=== PATIENT | female | born 1930 | race Caucasian/White ===

== ENCOUNTER 2017-02-22 10:18 | Inpatient (IN) | payer MEDICARE ==
[2017-02-22] MEDS ORDERED: HYDROmorphone INJ* 1 MG/ML CARPUJECT SYRINGE IV ONE ×2 (11:06→15:21)
[2017-02-22] MEDS ORDERED: Ondansetron INJ* 2 MG/ML VIAL IV ONE ×2 (11:06→15:21)
[2017-02-22] MEDS ORDERED: NS 0.9% 1000 ML* 1,000 ML IV ONE (11:06)
[2017-02-22 11:30] LABS: Hematocrit 39 % (35-47); Hemoglobin 12.8 g/dl (12.0-16.0); Mean Corpuscular HGB Conc 33 g/dl (31-36); Mean Corpuscular Hemoglobin 30 pg (27-31); Mean Corpuscular Volume 90 fL (80-97); Mean Platelet Volume 9 um3 (7.4-10.4); Red Blood Count 4.33 10^6/ul (4.0-5.4); Red Cell Distribution Width 14 % (10.5-15); White Blood Count 7.1 10^3/ul (3.5-10.8)
[2017-02-22 11:48] LABS: ALT 9 U/L (7-52); AST 11 U/L (13-39); Albumin 3.4 g/dL (3.2-5.2); Alkaline Phosphatase 72 U/L (34-104); Anion Gap 7 mmol/L (2-11); BUN/Creatinine Ratio 14.7 (8-20); Blood Urea Nitrogen 16 mg/dL (6-24); C Reactive Protein 2.88 mg/L (< 5.00); CO2 Carbon Dioxide 26 mmol/L (22-32); Calcium 8.8 mg/dL (8.6-10.3); Chloride 102 mmol/L (101-111); EGFR African American 61.1 (>60); EGFR Non-African American 47.5 (>60); Glucose 187 mg/dL (70-100); Lipase < 10 U/L (11.0-82.0); Potassium 3.8 mmol/L (3.5-5.0); Sodium 135 mmol/L (133-145); Total Protein 6.4 g/dL (6.4-8.9)
--- NOTE | 2017-02-22 11:57 | RAD ---
INDICATION: Burning abdominal pain and frequent soft stools. History of diverticulitis. Post appendectomy, hysterectomy, ovarian cyst resection, colon polypectomy, ureteral dilatation. COMPARISON: March 27, 2015 CT. TECHNIQUE: Multidetector CT images were obtained from the lung bases to the ischial tuberosities. Evaluation of the viscera is limited without IV contrast. Multiplanar reformation. REPORT: Mild focal LEFT anteromedial basal segment bronchiectasis without change. Negative for pleural effusions. RIGHT atrial and RIGHT ventricular pacemaker leads. Mild cardiomegaly. Negative for pericardial effusion. Unremarkable unenhanced liver and gallbladder. Negative for biliary dilatation. Advanced fatty involution of the pancreas without suspicious finding of the pancreas. Small calcified granuloma at the spleen. Small splenule approximates the dominant spleen. Negative for CT abnormality of the upper GI or small bowel. The appendix is not visualized consistent with surgical history. Severe colonic diverticulosis most marked at the sigmoid colon. Mild reticulation/inflammatory change at the proximal sigmoid colon mesentery similar location although less prominent than on the 2015 exam. No perienteric abscess or extra enteric gas evident. Only trace peritoneal fluid along the LEFT pelvic sidewall. Small fat-containing umbilical hernia without inflammatory change. Normal adrenal glands. Moderately atrophic kidneys. Negative for hydronephrosis. Unremarkable nondilated ureters and distended urinary bladder. Post hysterectomy. No suspicious adnexal region lesion evident. Negative for lymphadenopathy. Ectatic abdominal aorta from the suprarenal level through the distal infrarenal level measuring up to 3.0 cm maximum dimension without change. No retroperitoneal hematoma evident. Diffuse degenerative spondylosis and facet joint osteoarthritis without gross change. Negative for fracture or suspicious focal osseous lesion. IMPRESSION: 1. Mild inflammatory change at the sigmoid colon mesentery likely representing mild acute diverticulitis in setting of severe diverticulosis. No perienteric abscess or extra enteric gas evident. Negative for resulting bowel obstruction. 2. Ectatic abdominal aorta from the suprarenal level through the distal infrarenal level measuring up to 3.0 cm maximum dimension without change. No retroperitoneal hematoma evident.
[2017-02-22 12:32] LABS: Troponin I 0.03 ng/mL (<0.04)
[2017-02-22 13:23] LABS: Urine Bacteria Absent (Absent); Urine Bilirubin Negative (Negative); Urine Glucose Negative (Negative); Urine Nitrite Negative (Negative)
[2017-02-22] MEDS ORDERED: Ciprofloxacin TAB* 500 MG PO ONE (15:21)
[2017-02-22] MEDS ORDERED: metroNIDAZOLE TAB* 250 MG PO ONE (15:21)
[2017-02-22] MEDS ORDERED: Nitroglycerin TAB 0.4 MG* 0.4 MG TAB SL PRN (18:19)
[2017-02-22] MEDS: Losartan TAB* 25 MG PO SCH (21:41)
[2017-02-22] MEDS: HYDROmorphone TAB* 2 MG PO PRN (21:42)
[2017-02-22] MEDS: Warfarin TAB(*) 3 MG PO SCH (21:42)
[2017-02-22] MEDS: metroNIDAZOLE TAB* 250 MG PO SCH (21:42)
[2017-02-22] MEDS: Ciprofloxacin TAB* 500 MG PO SCH (21:43)
--- NOTE | 2017-02-23 02:30 | HP ---
HISTORY AND PHYSICAL: DATE OF ADMISSION: 02/22/17 ATTENDING PROVIDER: Jean Carlos Crawford MD. PRIMARY CARE PROVIDER: Dr. Mckeon of [place]. CHIEF COMPLAINT: Abdominal discomfort, cramping pain; anxiety. HISTORY OF PRESENT ILLNESS: The patient is an 86-year-old female with a past medical history as above, who started having some abdominal discomfort 3 days before admission, progressed to tenderness 2 days prior to admission, and then a cramping pain. She had multiple bowel movements that were soft, not liquidy. She developed some anxiety, never had any nausea. Denies any shortness breath or chest pain, chest tightness. She has chronic mcdowell-spinal back pains for which she takes originally oxycodone 10 mg 6 times a day, but recently has switched to Dilaudid 2 mg every 6 to 8 hours, but can take up to 6 times per day , per daughter in the room she has been taking it 3 times per day. Of note, she does have reported allergic reaction to morphine, which makes her sick. She switched because oxycodone seemed to not be a quite as effective anymore for the pain. The patient presented to the emergency room, had a CT abdomen and pelvis, which showed some evidence of mild inflammatory changes of the sigmoid colon and severe diverticulosis. She reports a history of diverticulitis. She had an EKG, which showed some anterior V1 through V4 T- wave inversions, which were seemingly new, and very slight ST depressions in V4. Repeat EKG had resolution of these T-wave inversions. Initial troponin was 0.03, slightly increasing to 0.04 three hours later. The patient has complex cardiac medical history and follows up with greald Prasad for pacemaker check, which was placed in April of last year, on March 03, that is the pacemaker check at that time, and an echocardiogram and routine visit. No other recent cardiac medication changes. She never tolerated statins due to muscle side effects. The patient was noted to be in first-degree AV block and then third- degree AV block in January on some of EKGs from January 2016, status post pacemaker. In April, later on, her left heart catheterization on April 26, [address] Purvis showed 80% to 85% stenosis of the RCA and got a drug-eluting stent to the area. The patient reports history of 4 stents. The patient will be admitted for diverticulitis and acute coronary syndrome rule out given ischemic changes on the EKG. 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 MEDICATIONS: Outpatient medications include: 1. Aspirin 81 mg daily. 2. Warfarin 3 mg daily. 3. Polyethylene glycol 17 g p.o. daily. 4. Nitroglycerin tabs 0.4 mg q.5 minutes p.r.n. 5. Losartan 50 mg p.o. b.i.d. 6. Imodium 2 mg p.o. daily p.r.n. 7. Synthroid 125 mcg p.o. daily. 8. Imdur 60 mg p.o. daily. 9. Dilaudid 2 to 4 mg p.o. q.6 to 8 hours p.r.n. 10. Cholecalciferol 2000 units p.o. daily. 11. Calcium carbonate/cholecalciferol 600+200 mg 1 tab p.o. daily. 12. Albuterol inhaler 2 puffs inhaled q.4 hours p.r.n. 13. Desoximetasone 0.05% topical daily. 14. Voltaren gel 1% applied 4 times a day p.r.n. ALLERGIES: Include CODEINE, severe hallucinations; PENICILLIN, intermediate hives; BACTRIM, intermediate hives; TRAMADOL, intermediate swelling; ACETAMINOPHEN, unknown; , unknown; FENTANYL, unknown; GABAPENTIN, unknown ; LORATADINE, unknown; MORPHINE, intermediate nausea. FAMILY MEDICAL HISTORY: Significant for mother with breast cancer and CHF. Brother of NC at age 65. Sister, heart attack at age 95, cancer of unknown origin at age 96, breast cancer at age 52, and breast cancer and then ultimately kidney failure at age 71. SOCIAL HISTORY: The patient is a never smoker and nondrinker. Lives in a shelter facility, [facility]. Daughter, Brigette, lives few blocks down. Her medical decision surrogate is her sister, Dipti Tapia. She walks slowly with a walker at baseline. REVIEW OF SYSTEMS: The patient denies 14-point review of systems except as noted in HPI. Denies shortness of breath, paroxysmal nocturnal dyspnea, pillow orthopnea, swelling in legs, chest pain, chest tightness, blood per bowel movements, diarrhea. Does attest to cramping abdominal pain, some anxiety. Denies headache, sick contacts, rashes, neuropathy. Does have residual left- sided weakness from her stroke. PHYSICAL EXAMINATION GENERAL APPEARANCE: No acute distress, lying in [facility]. VITAL SIGNS: Blood pressure 151/65, oxygen saturation 96% on room air, respiratory rate 14, heart rate 62, temperature 97.3. HEENT: Normocephalic, atraumatic. Pupils equally round and reactive to light. Extraocular motions intact. NECK: Supple. No cervical lymphadenopathy. PULMONARY: Clear to auscultation bilaterally with no wheezing, rales or rhonchi. CARDIOVASCULAR: Regular rate and rhythm. No murmurs, rubs or gallops. ABDOMEN: Soft, slightly tender diffusely. No peritoneal signs. No rebound or guarding. No Mckay's sign. EXTREMITIES: Warm, well perfused. No significant edema. SKIN: No rashes. No lesions. DIAGNOSTIC STUDIES/LAB DATA: Laboratory evaluation significant for white count of 7.1, hemoglobin 12.8, hematocrit 39, platelets 223. INR 2.12. Sodium 135, potassium 3.8, chloride 102, carbon dioxide 26, BUN 16, creatinine 1.09, glucose 187. AST 11. Troponin 0.03, increased to 0.04. LFTs within normal limits. Lipase less than 10. UA with 1+ leukocyte esterase and presence of squamous epithelial cells, otherwise within normal limits. IMAGING: Abdominal and pelvis CT without contrast demonstrated: 1. Mild inflammatory changes of the sigmoid colon and mesentery, likely representing mild acute diverticulitis in the setting of severe diverticulosis. No perienteric abscess or extra-enteric gas evident. Negative for resulting bowel obstruction. 2. Ectatic abdominal aorta from the suprarenal level to the distal infrarenal level measuring up to 3.07 in maximum dimension, without change. No retroperitoneal hematoma evident. EKG from 11:45 a.m. demonstrated T-wave inversions in V1 through V4, flat in V5 through V6, flat in aVF, and inverted Q-waves in III, IA interval prolonged at 290, normal axis, very slight to [address] segments in V4 and V3. Repeat EKG at 1718 demonstrated positive T-waves in V2 through V3 and flat in V4 , V5, continued Qs in V3, continued prolonged IA interval, ST depressions of 1 mm in V3, resolved in V4. ASSESSMENT AND PLAN: The patient is an 86-year-old female with complex past medical history including complex cardiac history with reported 4 stents, only known of one to the RCA in 2012, status post pacemaker, presenting with abdominal cramping and frequent soft bowel movements and with evidence of mild acute diverticulitis on CT abdomen and pelvis without contrast. The patient with some ischemic changes, transitory, on EKG and mildly intermediate troponins. Given her comorbidities and risk factors, we will admit her for observation status overnight, trend troponins every 4 hours, continue telemetry. Continue her aspirin, Coumadin, and nitro p.r.n. Of note, the patient is not endorsing any chest pain, chest tightness, or shortness of breath at this time. I believe this is likely some demand ischemia in the setting of mild infection and her chronic back pain symptoms are not exacerbated by the change in medication and now this abdominal pain. Some of her symptoms may in fact have been related to switching her medications as she does have some allergies to opioid medications and recently switched from oxycodone to Dilaudid. She follows up with Dr. Romeo, paint pourer. We will continue Dilaudid for now, give her Zofran p.r.n., not nauseous at the moment. We will continue Imdur 60 mg daily, losartan 50 mg b.i.d. She is slightly hypertensive here. It is not clear why she is not on a beta-toby, perhaps from her AV block. No clear evidence of pacemaking spikes. We can consult Cardiology in the morning. The patient is likely a good candidate for a stress test. The patient is a full code. Medical decision proxy is sister, Dipti Tapia. We will continue her Coumadin for her history of DVTs and get INRs daily, initially was 2.12, along with BMP, CBC, and magnesium daily initially. For asthma, continue her albuterol q.4 hours p.r.n. [id number]/[facility] #: [id number] [facility]
[2017-02-23] MEDS: Levothyroxine TAB* 125 MCG TAB PO SCH (05:11)
[2017-02-23] MEDS: HYDROmorphone TAB* 2 MG PO PRN (05:11)
[2017-02-23] MEDS: metroNIDAZOLE TAB* 250 MG PO SCH ×4 (07:51→21:21)
[2017-02-23] MEDS: Multivitamins/Minerals TAB PO SCH (07:51)
[2017-02-23] MEDS: Lactobacillus Acidophilu (GG)* 1 CAP CAP PO SCH (07:51)
[2017-02-23] MEDS: Isosorbide Mononitrate ER TAB* 60 MG PO SCH (07:52)
[2017-02-23] MEDS: Aspirin EC Low Dose* 81 MG TAB.EC PO SCH (07:53)
[2017-02-23] MEDS: Ciprofloxacin TAB* 500 MG PO SCH ×2 (07:55→21:21)
[2017-02-23] MEDS: Losartan TAB* 25 MG PO SCH ×2 (07:55→21:22)
[2017-02-23] MEDS: Polyethylene Glycol 3350* 17 GM PACKET PO SCH (07:58)
[2017-02-23] MEDS: Cholecalciferol TAB* 1000 UNITS PO SCH (08:04)
[2017-02-23] MEDS ORDERED: HYDROmorphone TAB* 2 MG PO PRN (09:12)
[2017-02-23 09:39] LABS: Hematocrit 39 % (35-47); Hemoglobin 13.2 g/dl (12.0-16.0); Mean Corpuscular HGB Conc 34 g/dl (31-36); Mean Corpuscular Hemoglobin 30 pg (27-31); Mean Corpuscular Volume 90 fL (80-97); Mean Platelet Volume 9 um3 (7.4-10.4); Red Blood Count 4.37 10^6/ul (4.0-5.4); Red Cell Distribution Width 14 % (10.5-15)
[2017-02-23] MEDS: HYDROmorphone TAB* 4 MG PO PRN ×3 (09:55→23:07)
[2017-02-23 10:29] LABS: BUN/Creatinine Ratio 11.7 (8-20); Calcium 8.3 mg/dL (8.6-10.3); EGFR African American 65.2 (>60); EGFR Non-African American 50.7 (>60); Potassium 3.7 mmol/L (3.5-5.0)
--- NOTE | 2017-02-23 13:47 | PN ---
Subjective Date of Service: 02/23/17 Interval History: Feels lousy. Incontinent of bowels with diarrhea. back pain not well controlled. some abdominal cramps remain. Objective Active Medications: Aspirin (Aspirin Ec Low Dose*) 81 mg PO DAILY [facility] Last Admin: 02/23/17 07:53 Dose: 81 mg Cholecalciferol (Vitamin D Tab*) 2,000 units PO DAILY [facility] Last Admin: 02/23/17 08:04 Dose: 2,000 units Ciprofloxacin (Cipro Tab*) 500 mg PO Q12HR [facility] Last Admin: 02/23/17 07:55 Dose: 500 mg Hydromorphone HCl (Dilaudid Tab*) 2 mg PO Q6H PRN PRN Reason: PAIN Hydromorphone HCl (Dilaudid Tab*) 4 mg PO Q6H PRN PRN Reason: PAIN Last Admin: 02/23/17 09:55 Dose: 4 mg Isosorbide Mononitrate (Imdur Er Tab*) 60 mg PO DAILY [facility] Last Admin: 02/23/17 07:52 Dose: 60 mg Lactobacillus Rhamnosus (Culturelle*) 1 cap PO DAILY [facility] Last Admin: 02/23/17 07:51 Dose: 1 cap Levothyroxine Sodium (Synthroid Tab*) 125 mcg PO QAM@0600 [facility] Last Admin: 02/23/17 05:11 Dose: 125 mcg Losartan Potassium (Cozaar Tab*) 50 mg PO BID [facility] Last Admin: 02/23/17 07:55 Dose: 50 mg Metronidazole (Flagyl Tab*) 500 mg PO TID [facility] Last Admin: 02/23/17 07:51 Dose: 500 mg Multivitamins/Minerals (Theragran/Minerals Tab*) 1 tab PO DAILY [facility] Last Admin: 02/23/17 07:51 Dose: 1 tab Nitroglycerin (Nitroglycerin Tab 0.4 Mg*) 0.4 mg SL Q5M PRN PRN Reason: PAIN - CHEST Polyethylene Glycol/Electrolytes (Miralax*) 17 gm PO DAILY [facility] Last Admin: 02/23/17 07:58 Dose: Not Given Warfarin Sodium (Coumadin Tab(*)) 3 mg PO DAILY@1700 [facility] PRN Reason: Protocol Last Admin: 02/22/17 21:42 Dose: 3 mg Vital Signs 02/23/17 02/23/17 02/23/17 09:55 11:07 11:55 Temperature 98.0 F Pulse Rate 76 Respiratory 18 18 18 Rate Blood Pressure 176/78 (mmHg) O2 Sat by Pulse 97 Oximetry Oxygen Devices in Use Now: None Appearance: anxious appearing with some discomfort. Ears/Nose/Mouth/Throat: NL Teeth, Lips, Gums, Mucous Membranes Moist Neck: NL Appearance and Movements; NL JVP, Trachea Midline Respiratory: Symmetrical Chest Expansion and Respiratory Effort, Clear to Auscultation Cardiovascular: NL Sounds; No Murmurs; No JVD, RRR Abdominal: - - slight tenderness LUQ, soft, no peritoneal signs Extremities: No Edema Skin: No Rash or Ulcers, No Nodules or Sclerosis Neurological: Alert and Oriented x 3, NL Muscle Strength and Tone Nutrition: Taking PO's, - Result Diagrams: 02/23/17 09:27 02/23/17 09:21 Additional Lab and Data: Laboratory Results - last 24 hr 02/22/17 02/22/17 02/22/17 15:05 18:37 18:50 WBC RBC Hgb Hct MCV MCH MCHC RDW Plt Count MPV Neut % (Auto) Lymph % (Auto) Glascock % (Auto) Eos % (Auto) Baso % (Auto) Absolute Neuts (auto) Absolute Lymphs (auto) Absolute Monos (auto) Absolute Eos (auto) Absolute Basos (auto) Absolute Nucleated RBC Nucleated RBC % Sodium Potassium Chloride Carbon Dioxide Anion Gap BUN Creatinine Est GFR ( Amer) Est GFR (Non-Af Amer) BUN/Creatinine Ratio Glucose Lactic Acid 1.2 Calcium Troponin I 0.04 H* 0.03 02/23/17 02/23/17 09:21 09:27 WBC 7.0 RBC 4.37 Hgb 13.2 Hct 39 MCV 90 MCH 30 MCHC 34 RDW 14 Plt Count 213 MPV 9 Neut % (Auto) 80.4 Lymph % (Auto) 12.1 L Glascock % (Auto) 5.8 Eos % (Auto) 0.9 Baso % (Auto) 0.8 Absolute Neuts (auto) 5.6 Absolute Lymphs (auto) 0.8 L Absolute Monos (auto) 0.4 Absolute Eos (auto) 0.1 Absolute Basos (auto) 0.1 Absolute Nucleated RBC 0.01 Nucleated RBC % 0.1 Sodium 135 Potassium 3.7 Chloride 101 Carbon Dioxide 27 Anion Gap 7 BUN 12 Creatinine 1.03 H Est GFR ( Amer) 65.2 Est GFR (Non-Af Amer) 50.7 BUN/Creatinine Ratio 11.7 Glucose 171 H Lactic Acid Calcium 8.3 L Troponin I Microbiology and Other Data: Microbiology 02/22/17 12:47 Urine Urine Culture - Final No Growth (<1,000 CFU/mL) Assess/Plan/Problems-Billing Assessment: 86 year old female PMH diverticulitis, CAD s/p RCA stent, DVTs on coumadin, CVA with mild residual left sided weakness, polio, anxiety, PMR, breast cancer and strong family cancer history, presenting with abdominal cramping. CT with mild diverticulitis. Now diarrhea. On cipro/flagyl. ACS rule out given initial transitory TWI anteriorly and borderline troponine. - Patient Problems (1) Diverticulitis Current Visit: No Status: Acute Priority: High Onset Date: 01/06/15 Comment: Afebrile. continue cipro flagyl add Cdiff (2) Chronic back pain Current Visit: No Status: Chronic Code(s): M54.9 - DORSALGIA, UNSPECIFIED; G89.29 - OTHER CHRONIC PAIN SNOMED Code(s): 347891617 Comment: Continue home medications : dilaudid 2-4mg q6hrs prn. this was recently changed. (3) Diabetes Current Visit: No Status: Chronic Priority: High Onset Date: 01/06/15 Code(s): E11.9 - TYPE 2 DIABETES MELLITUS WITHOUT COMPLICATIONS SNOMED Code(s) : 70842965 Comment: a1C 6.9 12/01/16 lispro SSI, POCT qac hs (4) History of CVA (cerebrovascular accident) Current Visit: No Status: Chronic Priority: Medium Code(s): Z86.73 - PRSNL HX OF TIA (TIA), AND CEREB INFRC W/O RESID DEFICITS SNOMED Code(s): 742467943 (5) Hx of coronary artery disease Current Visit: No Status: Chronic Priority: Medium Code(s): Z86.79 - PERSONAL HISTORY OF OTHER DISEASES OF THE CIRCULATORY SYSTEM SNOMED Code(s): 662046425 Comment: troponins flat, peaked 0.04 TWI anteriorly resolved consider outpatient stress test, likely demand ischemia in setting of diverticulitis. (6) Hyperlipemia Current Visit: No Status: Chronic Priority: High Onset Date: 01/06/15 Code(s): E78.5 - HYPERLIPIDEMIA, UNSPECIFIED SNOMED Code(s): 52405326 Comment: not tolerant of statin (7) Hypertension Current Visit: No Status: Chronic Priority: High Onset Date: 01/06/15 Code(s): I10 - ESSENTIAL (PRIMARY) HYPERTENSION SNOMED Code(s): 85726411 Comment: Continue imdur and losartan. (8) Hx of polymyalgia rheumatica Current Visit: No Status: Chronic Priority: Medium Code(s): Z87.39 - PERSONAL HISTORY OF DISEASES OF THE MS SYS AND CONN TISS SNOMED Code(s): 847492790 Status and Disposition: medicine inpatient, hopeful d/c 02.24 Attending: Jean Carlos Crawford
[2017-02-23] MEDS ORDERED: Dextrose 50% Syringe 50 ML* 25 GM/50 ML SYRINGE IV PUSH PRN (13:52)
[2017-02-23] MEDS: Insulin LISPRO* 1 UNITS UNIT SUBCUT SCH ×2 (16:18→21:20)
[2017-02-23] MEDS: Warfarin TAB(*) 3 MG PO SCH (16:20)
[2017-02-24] MEDS: HYDROmorphone TAB* 4 MG PO PRN ×4 (05:24→19:52)
[2017-02-24] MEDS: Levothyroxine TAB* 125 MCG TAB PO SCH (05:25)
[2017-02-24] MEDS: Insulin LISPRO* 1 UNITS UNIT SUBCUT SCH ×4 (08:06→20:01)
[2017-02-24] MEDS: Aspirin EC Low Dose* 81 MG TAB.EC PO SCH (09:07)
[2017-02-24] MEDS: Losartan TAB* 25 MG PO SCH ×2 (09:07→19:53)
[2017-02-24] MEDS: Multivitamins/Minerals TAB PO SCH (09:07)
[2017-02-24] MEDS: Ciprofloxacin TAB* 500 MG PO SCH ×2 (09:07→19:52)
[2017-02-24] MEDS: Isosorbide Mononitrate ER TAB* 60 MG PO SCH (09:07)
[2017-02-24] MEDS: Lactobacillus Acidophilu (GG)* 1 CAP CAP PO SCH (09:07)
[2017-02-24] MEDS: Cholecalciferol TAB* 1000 UNITS PO SCH (09:07)
[2017-02-24] MEDS: metroNIDAZOLE TAB* 250 MG PO SCH ×3 (09:08→19:52)
[2017-02-24] MEDS: Polyethylene Glycol 3350* 17 GM PACKET PO SCH (09:10)
[2017-02-24 10:10] LABS: Hematocrit 41 % (35-47); Hemoglobin 13.9 g/dl (12.0-16.0); Mean Corpuscular HGB Conc 34 g/dl (31-36); Mean Corpuscular Hemoglobin 31 pg (27-31); Mean Corpuscular Volume 91 fL (80-97); Mean Platelet Volume 9 um3 (7.4-10.4); Red Blood Count 4.53 10^6/ul (4.0-5.4); Red Cell Distribution Width 14 % (10.5-15); White Blood Count 8.8 10^3/ul (3.5-10.8)
[2017-02-24] MEDS ORDERED: HYDROmorphone TAB* 2 MG PO PRN (10:27)
[2017-02-24] MEDS ORDERED: LORazepam TAB(*) 0.5 MG PO PRN (10:31)
[2017-02-24] MEDS: Loperamide CAP* 2 MG PO SCH (10:53)
--- NOTE | 2017-02-24 14:01 | PN ---
Subjective Date of Service: 02/24/17 Interval History: diarrhea with incontinence. some abominal cramping. cdiff negative. pain breakthroughs. ate 10% of lunch when advanced. Objective Active Medications: Aspirin (Aspirin Ec Low Dose*) 81 mg PO DAILY [facility] Last Admin: 02/24/17 09:07 Dose: 81 mg Cholecalciferol (Vitamin D Tab*) 2,000 units PO DAILY [facility] Last Admin: 02/24/17 09:07 Dose: 2,000 units Ciprofloxacin (Cipro Tab*) 500 mg PO Q12HR [facility] Last Admin: 02/24/17 09:07 Dose: 500 mg Dextrose (D50w Syringe 50 Ml*) 12.5 gm IV PUSH .FOR FS < 60 - SS PRN PRN Reason: FS < 60 Hydromorphone HCl (Dilaudid Tab*) 2 mg PO Q4H PRN PRN Reason: PAIN Hydromorphone HCl (Dilaudid Tab*) 4 mg PO Q4H PRN PRN Reason: PAIN Last Admin: 02/24/17 10:53 Dose: 4 mg Insulin Human Lispro (Humalog*) 0 units SUBCUT ACHS [facility] PRN Reason: Protocol Last Admin: 02/24/17 11:57 Dose: Not Given Lactobacillus Rhamnosus (Culturelle*) 1 cap PO DAILY [facility] Last Admin: 02/24/17 09:07 Dose: 1 cap Levothyroxine Sodium (Synthroid Tab*) 125 mcg PO QAM@0600 [facility] Last Admin: 02/24/17 05:25 Dose: 125 mcg Loperamide HCl (Imodium Cap*) 2 mg PO DAILY [facility] Last Admin: 02/24/17 10:53 Dose: 2 mg Lorazepam (Ativan Tab(*)) 0.25 mg PO Q8H PRN PRN Reason: ANXIETY Losartan Potassium (Cozaar Tab*) 50 mg PO BID [facility] Last Admin: 02/24/17 09:07 Dose: 50 mg Metronidazole (Flagyl Tab*) 500 mg PO TID [facility] Last Admin: 02/24/17 09:08 Dose: 500 mg Multivitamins/Minerals (Theragran/Minerals Tab*) 1 tab PO DAILY [facility] Last Admin: 02/24/17 09:07 Dose: 1 tab Nitroglycerin (Nitroglycerin Tab 0.4 Mg*) 0.4 mg SL Q5M PRN PRN Reason: PAIN - CHEST Warfarin Sodium (Coumadin Tab(*)) 3 mg PO DAILY@1700 [facility] PRN Reason: Protocol Last Admin: 02/23/17 16:20 Dose: 3 mg Vital Signs 02/23/17 02/23/17 02/23/17 15:45 16:15 18:15 Temperature 97.7 F Pulse Rate 63 Respiratory 16 18 18 Rate Blood Pressure 150/83 (mmHg) O2 Sat by Pulse 95 Oximetry 02/23/17 02/23/17 02/23/17 18:24 20:21 20:24 Temperature 97.7 F Pulse Rate 63 Respiratory 18 16 18 Rate Blood Pressure 154/72 (mmHg) O2 Sat by Pulse 94 Oximetry 02/23/17 02/23/17 02/23/17 21:00 23:07 23:30 Temperature 98.2 F Pulse Rate 66 Respiratory 18 19 16 Rate Blood Pressure 175/80 (mmHg) O2 Sat by Pulse 96 Oximetry 02/24/17 02/24/17 02/24/17 01:07 03:32 05:24 Temperature 97.8 F Pulse Rate 76 Respiratory 15 16 20 Rate Blood Pressure 171/94 (mmHg) O2 Sat by Pulse 95 Oximetry 02/24/17 02/24/17 02/24/17 07:24 07:33 07:44 Temperature 97.5 F Pulse Rate 71 Respiratory 20 18 20 Rate Blood Pressure 180/95 (mmHg) O2 Sat by Pulse 96 Oximetry 02/24/17 02/24/17 10:46 10:53 Temperature Pulse Rate 62 Respiratory 20 Rate Blood Pressure 158/85 (mmHg) O2 Sat by Pulse Oximetry Oxygen Devices in Use Now: None Appearance: very anxious and talkative Eyes: No Scleral Icterus, PERRLA Ears/Nose/Mouth/Throat: Mucous Membranes Moist Neck: NL Appearance and Movements; NL JVP Respiratory: Symmetrical Chest Expansion and Respiratory Effort, Clear to Auscultation Cardiovascular: NL Sounds; No Murmurs; No JVD, RRR Abdominal: - - no tenderness when distracted. soft, obese. Extremities: No Edema Skin: No Rash or Ulcers Neurological: Alert and Oriented x 3, NL Muscle Strength and Tone Result Diagrams: 02/24/17 10:03 02/23/17 09:21 Additional Lab and Data: Laboratory Results - last 24 hr 02/23/17 02/23/17 02/24/17 16:16 20:11 06:03 WBC RBC Hgb Hct MCV MCH MCHC RDW Plt Count MPV Neut % (Auto) Lymph % (Auto) Mcminn % (Auto) Eos % (Auto) Baso % (Auto) Absolute Neuts (auto) Absolute Lymphs (auto) Absolute Monos (auto) Absolute Eos (auto) Absolute Basos (auto) Absolute Nucleated RBC Nucleated RBC % INR (Anticoag Therapy) 2.90 H POC Glucose (mg/dL) 119 H 132 H 02/24/17 02/24/17 02/24/17 07:37 10:03 11:37 WBC 8.8 RBC 4.53 Hgb 13.9 Hct 41 MCV 91 MCH 31 MCHC 34 RDW 14 Plt Count 256 MPV 9 Neut % (Auto) 75.5 Lymph % (Auto) 14.3 L Mcminn % (Auto) 6.1 Eos % (Auto) 3.3 Baso % (Auto) 0.8 Absolute Neuts (auto) 6.7 Absolute Lymphs (auto) 1.3 Absolute Monos (auto) 0.5 Absolute Eos (auto) 0.3 Absolute Basos (auto) 0.1 Absolute Nucleated RBC 0.02 Nucleated RBC % 0.2 INR (Anticoag Therapy) POC Glucose (mg/dL) 140 H 125 H Microbiology and Other Data: Microbiology 02/24/17 05:00 Stool Stool Gross Appearance - Final 02/24/17 05:00 Stool C. difficile DNA Amplification - Final 027 Presumptive NEGATIVE Toxigenic C.diff NEGATIVE 02/22/17 12:47 Urine Urine Culture - Final No Growth (<1,000 CFU/mL) Assess/Plan/Problems-Billing Assessment: 86 year old female PMH diverticulitis, CAD s/p RCA stent, DVTs on coumadin, CVA with mild residual left sided weakness, polio, anxiety, PMR, breast cancer and strong family cancer history, presenting with abdominal cramping. CT with mild diverticulitis. Now diarrhea. On cipro/flagyl. ACS rule out given initial transitory TWI anteriorly and borderline troponine. - Patient Problems (1) Diverticulitis Current Visit: No Status: Acute Priority: High Onset Date: 01/06/15 Comment: Afebrile. continue cipro flagyl Cdiff negative add immodium (2) Chronic back pain Current Visit: No Status: Chronic Code(s): M54.9 - DORSALGIA, UNSPECIFIED; G89.29 - OTHER CHRONIC PAIN SNOMED Code(s): 689107545 Comment: Continue home medications : dilaudid 2-4mg q6hrs prn -> q4. this was recently changed. (3) Diabetes Current Visit: No Status: Chronic Priority: High Onset Date: 01/06/15 Code(s): E11.9 - TYPE 2 DIABETES MELLITUS WITHOUT COMPLICATIONS SNOMED Code(s) : 05530859 Comment: a1C 6.9 12/01/16 lispro SSI, POCT qac hs (4) History of CVA (cerebrovascular accident) Current Visit: No Status: Chronic Priority: Medium Code(s): Z86.73 - PRSNL HX OF TIA (TIA), AND CEREB INFRC W/O RESID DEFICITS SNOMED Code(s): 053663205 (5) Hx of coronary artery disease Current Visit: No Status: Chronic Priority: Medium Code(s): Z86.79 - PERSONAL HISTORY OF OTHER DISEASES OF THE CIRCULATORY SYSTEM SNOMED Code(s): 656340214 Comment: troponins flat, peaked 0.04 TWI anteriorly resolved consider outpatient stress test, likely demand ischemia in setting of diverticulitis. (6) Hyperlipemia Current Visit: No Status: Chronic Priority: High Onset Date: 01/06/15 Code(s): E78.5 - HYPERLIPIDEMIA, UNSPECIFIED SNOMED Code(s): 98161605 Comment: not tolerant of statin (7) Hypertension Current Visit: No Status: Chronic Priority: High Onset Date: 01/06/15 Code(s): I10 - ESSENTIAL (PRIMARY) HYPERTENSION SNOMED Code(s): 10992512 Comment: Continue imdur and losartan. intermittently high with pain and anxiety (8) Hx of polymyalgia rheumatica Current Visit: No Status: Chronic Priority: Medium Code(s): Z87.39 - PERSONAL HISTORY OF DISEASES OF THE MS SYS AND CONN TISS SNOMED Code(s): 938181963 Status and Disposition: medicine inpatient, hopeful d/c 02/25 Attending: Jean Carlos Crawford
[2017-02-24] MEDS: Famotidine TAB* 20 MG PO SCH (16:22)
[2017-02-24] MEDS: Warfarin TAB(*) 3 MG PO SCH (17:31)
[2017-02-24] MEDS: Calcium Carbonate CHEW TAB* 500 MG (TUMS) PO SCH (19:52)
[2017-02-24] MEDS ORDERED: Isosorbide Mononitrate ER TAB* 60 MG PO SCH (21:00)
--- NOTE | 2017-02-24 22:08 | ED ---
Lucho Paz Benjamin, scribed for Dawson Hull MD on 02/22/17 at 1107 . Abdominal Pain/Female - HPI Summary HPI Summary: 86yo female c/o burning umbilical abdominal pain since yesterday. Pt also had numerous BM that were hard stool. Pt denies any black or bloody stool. Pt has also felt nauseous, and pain was worsened with road bumps on her way to the ED. Decreased appetite due to pain and discomfort. Pt is on narcotic pain meds for chronic back and hip problems. - History of Current Complaint Chief Complaint: EDAbdPain Stated Complaint: POSS HIGH BP/CARDIAC ISSUES/STOMACH DISCOMFORT Time Seen by Provider: 02/22/17 10:49 Hx Obtained From: Patient, Family/Maintenance Superintendent Onset/Duration: Gradual Onset, Lasting Days - 2 days, Still Present Timing: Constant Severity Initially: Severe Severity Currently: Severe Pain Intensity: 9 Pain Scale Used: 0-10 Numeric Location: Umbilical Radiates: No Character: Burning Aggravating Factor(s): Nothing Alleviating Factor(s): Nothing Associated Signs and Symptoms: Positive: Decreased Appetite, Nausea. Negative: Blood in Stool, Diarrhea Allergies/Adverse Reactions: Allergies Allergy/AdvReac Type Severity Reaction Status Date / Time Codeine Allergy Severe Hallucinati Verified 01/09/16 08:59 ons Penicillins [PCN] Allergy Intermediate Hives Verified 01/09/16 08:59 Sulfamethoxazole Allergy Intermediate Hives Verified 01/09/16 08:59 w/Trimethoprim [From Septra] Tramadol [From Ultracet] Allergy Intermediate Swelling Verified 01/09/16 08:59 Acetaminophen [From Ultracet] Allergy Unknown Unknown Verified 01/09/16 08:59 Reaction Details Aspartame Allergy Unknown Unknown Verified 01/09/16 08:59 Reaction Details Fentanyl Allergy Unknown Unknown Verified 01/09/16 08:59 Reaction Details Gabapentin Allergy Unknown Unknown Verified 01/09/16 08:59 Reaction Details Loratadine [From Claritin] Allergy Unknown Unknown Verified 01/09/16 08:59 Reaction Details Morphine AdvReac Intermediate Nausea Verified 01/09/16 08:59 Home Medications: Home Medications Albuterol inh POWDER (NF) [Proair Respiclick] 2 puff INH Q4HR PRN 02/22/17 [ History Confirmed 02/22/17] Betamethasone Dipropionate Aug [Augmented Betamethasone D] 0.05 % TOPICAL BID [History Confirmed 02/22/17] Calcium Carbonate-Cholecalcife [Calcium 600 + D 600-200 mg-Unit] 1 tab PO DAILY 02/22/17 [History Confirmed 02/22/17] Cyanocobalamin INJ * [Vitamin B12 INJ *] 1,000 mcg IM MONTHLY 02/22/17 [History Confirmed 02/22/17] HYDROmorphone TAB* [Dilaudid TAB*] 2 - 4 mg PO .Q6-8H 02/22/17 [History Confirmed 02/22/17] Hydrocortisone SUPP* [Anusol HC Supp*] 25 mg WI Q12HR PRN 02/22/17 [History Confirmed 02/22/17] Loperamide CAP* [Imodium CAP*] 2 mg PO DAILY PRN 02/22/17 [History Confirmed ] Probiotic Product [Probiotic Daily] 1 cap PO DAILY 02/22/17 [History Confirmed 02/22/17] Warfarin TAB(*) [Coumadin TAB(*)] 3 mg PO DAILY 02/22/17 [History Confirmed ] PMH/Surg Hx/FS Hx/Imm Hx Endocrine/Hematology History: Reports: Hx Anticoagulant Therapy, Hx Diabetes, Hx Thyroid Disease, Hx Anemia Cardiovascular History: Reports: Hx Angina, Hx Cardiac Arrest, Hx Congestive Heart Failure, Hx Coronary Artery Disease, Hx Deep Vein Thrombosis, Hx Embolism , Hx Hypercholesterolemia, Hx Hypertension, Hx Myocardial Infarction, Hx Pacemaker/ICD - 9/11/22, Other Cardiovascular Problems/Disorders - Hx HTN Denies: Hx Valvular Heart Disease Respiratory History: Reports: Hx Asthma, Hx Chronic Bronchitis, Hx Chronic Obstructive Pulmonary Disease (COPD), Hx Pneumonia, Hx Seasonal Allergies GI History: Reports: Hx Diverticulosis, Hx Gastroesophageal Reflux Disease, Hx Hiatal Hernia, Other GI Disorders - Colitis/Diverticulitis History: Reports: Other Problems/Disorders - frequent UTI's Denies: Hx Renal Disease Musculoskeletal History: Reports: Hx Arthritis, Hx Back Problems, Hx Osteoporosis, Other Musculoskeletal History Sensory History: Reports: Hx Cataracts - Removed 1995, Hx Contacts or Glasses, Hx Vision Problem, Hx Deafness, Hx Hearing Aid, Hx Hearing Problem Opthamlomology History: Reports: Hx Cataracts - Removed 1995, Hx Contacts or Glasses, Hx Vision Problem Neurological History: Reports: Other Neuro Impairments/Disorders - spinal stenosis Psychiatric History: Reports: Hx Depression Denies: Hx Panic Disorder, Hx Substance Abuse - Cancer History Cancer Type, Location and Year: Left breast cancer, 2003. treated with radiation. Hx Chemotherapy: No Hx Radiation Therapy: Yes - Surgical History Surgery Procedure, Year, and Place: Tonsillectomy. Appendectomy. Ovarian cyst surgery 1969. Hysterectomy 1979. Bilateral cataract surgery,. Colon polyp removal 2001. Left breast partial mastectomy 2003. Urethral dilation May 2004. 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 Denies: Hx Clostridium Difficile, Hx Hepatitis, Hx Human Immunodeficiency Virus (HIV), Hx Shingles, Hx Tuberculosis, Hx Known/Suspected VRE, Traveled Outside the in Last 30 Days - Family History Known Family History: Positive: Cardiac Disease - Social History Lives: With Family Alcohol Use: None Hx Substance Use: No Substance Use Type: Reports: Prescribed Hx Tobacco Use: Yes Smoking Status (MU): Never Smoked Tobacco Type: Cigarettes Have You Smoked in the Last Year: No Review of Systems Constitutional: Negative Eyes: Negative ENT: Negative Cardiovascular: Negative Respiratory: Negative Positive: Abdominal Pain, Nausea. Negative: Vomiting, Diarrhea Genitourinary: Negative Positive: no symptoms reported Positive: Myalgia - chronic back pain Skin: Negative Neurological: Negative Psychological: Normal All Other Systems Reviewed And Are Negative: Yes Physical Exam Triage Information Reviewed: Yes Vital Signs On Initial Exam: Initial Vitals Temp Pulse Resp BP Pulse Ox 97.3 F 81 20 163/96 94 02/22/17 10:39 02/22/17 10:39 02/22/17 10:39 02/22/17 10:39 02/22/17 10:39 Vital Signs Reviewed: Yes Appearance: Positive: Well-Appearing, Well-Nourished, Pain Distress - mild Skin: Positive: Warm, Skin Color Reflects Adequate Perfusion, Dry Head/Face: Positive: Normal Head/Face Inspection Eyes: Positive: Normal, Conjunctiva Clear ENT: Positive: Normal ENT inspection, Hearing grossly normal Neck: Positive: Supple, Nontender Respiratory/Lung Sounds: Positive: Clear to Auscultation, Breath Sounds Present Cardiovascular: Positive: RRR, Pulses are Symmetrical in both Upper and Lower Extremities Abdomen Description: Positive: Soft. Negative: Nontender - periumbilical and LLQ tenderness Bowel Sounds: Positive: Present Musculoskeletal: Positive: Strength/ROM Intact Neurological: Positive: Sensory/Motor Intact, Alert, Oriented to Person Place, Time Psychiatric: Positive: Affect/Mood Appropriate Diagnostics - Vital Signs Vital Signs Temp Pulse Resp BP Pulse Ox 02/22/17 10:39 97.3 F 81 20 163/96 94 - Laboratory Lab Results: Lab Results 02/22/17 02/22/17 02/22/17 Range/Units 11:15 11:15 11:15 WBC 7.1 (3.5-10.8) 10^3/ul RBC 4.33 (4.0-5.4) 10^6/ul Hgb 12.8 (12.0-16.0) g/dl Hct 39 (35-47) % MCV 90 (80-97) fL MCH 30 (27-31) pg MCHC 33 (31-36) g/dl RDW 14 (10.5-15) % Plt Count 223 (150-450) 10^3/ul MPV 9 (7.4-10.4) um3 Neut % (Auto) 81.8 (38-83) % Lymph % (Auto) 11.0 L (25-47) % Richardson % (Auto) 6.1 (1-9) % Eos % (Auto) 0.3 (0-6) % Baso % (Auto) 0.8 (0-2) % Absolute Neuts (auto) 5.8 (1.5-7.7) 10^3/ul Absolute Lymphs (auto) 0.8 L (1.0-4.8) 10^3/ul Absolute Monos (auto) 0.4 (0-0.8) 10^3/ul Absolute Eos (auto) 0 (0-0.6) 10^3/ul Absolute Basos (auto) 0.1 (0-0.2) 10^3/ul Absolute Nucleated RBC 0 10^3/ul Nucleated RBC % 0 INR (Anticoag Therapy) 2.12 H (0.89-1.11) Sodium 135 (133-145) mmol/L Potassium 3.8 (3.5-5.0) mmol/L Chloride 102 (101-111) mmol/L Carbon Dioxide 26 (22-32) mmol/L Anion Gap 7 (2-11) mmol/L BUN 16 (6-24) mg/dL Creatinine 1.09 H (0.51-0.95) mg/dL Est GFR ( Amer) 61.1 (>60) Est GFR (Non-Af Amer) 47.5 (>60) BUN/Creatinine Ratio 14.7 (8-20) Glucose 187 H (70-100) mg/dL Lactic Acid (0.5-2.0) mmol/L Calcium 8.8 (8.6-10.3) mg/dL Total Bilirubin 0.60 (0.2-1.0) mg/dL AST 11 L (13-39) U/L ALT 9 (7-52) U/L Alkaline Phosphatase 72 (34-104) U/L Troponin I 0.03 (<0.04) ng/mL C-Reactive Protein 2.88 (< 5.00) mg/L Total Protein 6.4 (6.4-8.9) g/dL Albumin 3.4 (3.2-5.2) g/dL Globulin 3.0 (2-4) g/dL Albumin/Globulin Ratio 1.1 (1-3) Lipase < 10 L (11.0-82.0) U/L Urine Color Urine Appearance Urine pH (5-9) Ur Specific [place] (1.010-1.030) Urine Protein (Negative) Urine Ketones (Negative) Urine Blood (Negative) Urine Nitrate (Negative) Urine Bilirubin (Negative) Urine Urobilinogen (Negative) Ur Leukocyte Esterase (Negative) Urine WBC (Auto) (Absent) Urine RBC (Auto) (Absent) Ur Squamous Epith Cells (Absent) Urine Bacteria (Absent) Hyaline Casts (Absent) Urine Glucose (Negative) 02/22/17 02/22/17 02/22/17 Range/Units 11:15 12:47 15:05 WBC (3.5-10.8) 10^3/ul RBC (4.0-5.4) 10^6/ul Hgb (12.0-16.0) g/dl Hct (35-47) % MCV (80-97) fL MCH (27-31) pg MCHC (31-36) g/dl RDW (10.5-15) % Plt Count (150-450) 10^3/ul MPV (7.4-10.4) um3 Neut % (Auto) (38-83) % Lymph % (Auto) (25-47) % Richardson % (Auto) (1-9) % Eos % (Auto) (0-6) % Baso % (Auto) (0-2) % Absolute Neuts (auto) (1.5-7.7) 10^3/ul Absolute Lymphs (auto) (1.0-4.8) 10^3/ul Absolute Monos (auto) (0-0.8) 10^3/ul Absolute Eos (auto) (0-0.6) 10^3/ul Absolute Basos (auto) (0-0.2) 10^3/ul Absolute Nucleated RBC 10^3/ul Nucleated RBC % INR (Anticoag Therapy) (0.89-1.11) Sodium (133-145) mmol/L Potassium (3.5-5.0) mmol/L Chloride (101-111) mmol/L Carbon Dioxide (22-32) mmol/L Anion Gap (2-11) mmol/L BUN (6-24) mg/dL Creatinine (0.51-0.95) mg/dL Est GFR ( Amer) (>60) Est GFR (Non-Af Amer) (>60) BUN/Creatinine Ratio (8-20) Glucose (70-100) mg/dL Lactic Acid 2.0 (0.5-2.0) mmol/L Calcium (8.6-10.3) mg/dL Total Bilirubin (0.2-1.0) mg/dL AST (13-39) U/L ALT (7-52) U/L Alkaline Phosphatase (34-104) U/L Troponin I 0.04 H* (<0.04) ng/mL C-Reactive Protein (< 5.00) mg/L Total Protein (6.4-8.9) g/dL Albumin (3.2-5.2) g/dL Globulin (2-4) g/dL Albumin/Globulin Ratio (1-3) Lipase (11.0-82.0) U/L Urine Color Yellow Urine Appearance Clear Urine pH 6.0 (5-9) Ur Specific [place] 1.011 (1.010-1.030) Urine Protein Negative (Negative) Urine Ketones Negative (Negative) Urine Blood Negative (Negative) Urine Nitrate Negative (Negative) Urine Bilirubin Negative (Negative) Urine Urobilinogen Negative (Negative) Ur Leukocyte Esterase 1+ H (Negative) Urine WBC (Auto) Trace(0-5/hpf) (Absent) Urine RBC (Auto) Trace(0-2/hpf) (Absent) Ur Squamous Epith Cells Present H (Absent) Urine Bacteria Absent (Absent) Hyaline Casts Present H (Absent) Urine Glucose Negative (Negative) 02/22/17 02/22/17 Range/Units 18:37 18:50 WBC (3.5-10.8) 10^3/ul RBC (4.0-5.4) 10^6/ul Hgb (12.0-16.0) g/dl Hct (35-47) % MCV (80-97) fL MCH (27-31) pg MCHC (31-36) g/dl RDW (10.5-15) % Plt Count (150-450) 10^3/ul MPV (7.4-10.4) um3 Neut % (Auto) (38-83) % Lymph % (Auto) (25-47) % Richardson % (Auto) (1-9) % Eos % (Auto) (0-6) % Baso % (Auto) (0-2) % Absolute Neuts (auto) (1.5-7.7) 10^3/ul Absolute Lymphs (auto) (1.0-4.8) 10^3/ul Absolute Monos (auto) (0-0.8) 10^3/ul Absolute Eos (auto) (0-0.6) 10^3/ul Absolute Basos (auto) (0-0.2) 10^3/ul Absolute Nucleated RBC 10^3/ul Nucleated RBC % INR (Anticoag Therapy) (0.89-1.11) Sodium (133-145) mmol/L Potassium (3.5-5.0) mmol/L Chloride (101-111) mmol/L Carbon Dioxide (22-32) mmol/L Anion Gap (2-11) mmol/L BUN (6-24) mg/dL Creatinine (0.51-0.95) mg/dL Est GFR ( Amer) (>60) Est GFR (Non-Af Amer) (>60) BUN/Creatinine Ratio (8-20) Glucose (70-100) mg/dL Lactic Acid 1.2 (0.5-2.0) mmol/L Calcium (8.6-10.3) mg/dL Total Bilirubin (0.2-1.0) mg/dL AST (13-39) U/L ALT (7-52) U/L Alkaline Phosphatase (34-104) U/L Troponin I 0.03 (<0.04) ng/mL C-Reactive Protein (< 5.00) mg/L Total Protein (6.4-8.9) g/dL Albumin (3.2-5.2) g/dL Globulin (2-4) g/dL Albumin/Globulin Ratio (1-3) Lipase (11.0-82.0) U/L Urine Color Urine Appearance Urine pH (5-9) Ur Specific [place] (1.010-1.030) Urine Protein (Negative) Urine Ketones (Negative) Urine Blood (Negative) Urine Nitrate (Negative) Urine Bilirubin (Negative) Urine Urobilinogen (Negative) Ur Leukocyte Esterase (Negative) Urine WBC (Auto) (Absent) Urine RBC (Auto) (Absent) Ur Squamous Epith Cells (Absent) Urine Bacteria (Absent) Hyaline Casts (Absent) Urine Glucose (Negative) Result Diagrams: 02/24/17 10:03 02/23/17 09:21 Lab Statement: Any lab studies that have been ordered have been reviewed, and results considered in the medical decision making process. - CT CT A/P WO CT Interpretation: Positive (See Comments) - IMPRESSION: 1. Mild inflammatory change at the sigmoid colon mesentery likely representing mild acute diverticulitis in setting of severe diverticulosis. No perienteric abscess or extra enteric gas evident. Negative for resulting bowel obstruction. 2. Ectatic abdominal aorta from the suprarenal level through the distal infrarenal level measuring up to 3.0 cm maximum dimension without change. No retroperitoneal hematoma evident. CT Interpretation Completed By: Radiologist - ED physician has reviewed this radiology report and agrees. - EKG 1146. Cardiac Rate: NL - 62bpm EKG Rhythm: Sinus Bradycardia - borderline sinus bradycardia ST Segment: Non-Specific - non-specific anterior, lateral ST t waves. New changes compared to 01/16/2016. EKG Interpretation: 1st degree block 1718. Cardiac Rate: NL - 83bpm EKG Interpretation: Indeterminate rhythm. diffuse T wave flattening. Re-Evaluation - Re-Evaluation First Eval Re-Evaluation Time: 17:26 Comment: Reviewed labs and imaging reports with the pt, and informed pt about the plan of actions. Abdominal Pain Fem Course/Dx - Course Course Of Treatment: Reviewed pts medication and allergy lists. High blood pressure noted. Discussed with Dr. Rodriguez (Hospitalist) about pt's case at 1734. He will consult the pt. Ms. Chan was found to have diverticulitis. She had some concerning changes on ecg as well as troponin elevations and I asked the hospitalist to consult. - Diagnoses Provider Diagnoses: Diverticulitis, Acute electrocardiogram changes Discharge - Discharge Plan Condition: Stable Disposition: ADMITTED TO [facility] The documentation as recorded by the Lucho redd Benjamin accurately reflects the service I personally performed and the decisions made by me, Dawson Hull MD.
[2017-02-25] MEDS: HYDROmorphone TAB* 4 MG PO PRN ×3 (00:57→11:18)
[2017-02-25] MEDS: Levothyroxine TAB* 125 MCG TAB PO SCH (05:45)
[2017-02-25] MEDS: Cholecalciferol TAB* 1000 UNITS PO SCH (08:52)
[2017-02-25] MEDS: Losartan TAB* 25 MG PO SCH (08:52)
[2017-02-25] MEDS: Famotidine TAB* 20 MG PO SCH (08:52)
[2017-02-25] MEDS: Multivitamins/Minerals TAB PO SCH (08:52)
[2017-02-25] MEDS: Lactobacillus Acidophilu (GG)* 1 CAP CAP PO SCH (08:52)
[2017-02-25] MEDS: metroNIDAZOLE TAB* 250 MG PO SCH (08:52)
[2017-02-25] MEDS: Calcium Carbonate CHEW TAB* 500 MG (TUMS) PO SCH (08:52)
[2017-02-25] MEDS: Loperamide CAP* 2 MG PO SCH (08:53)
[2017-02-25] MEDS: Ciprofloxacin TAB* 500 MG PO SCH (08:53)
[2017-02-25] MEDS: Aspirin EC Low Dose* 81 MG TAB.EC PO SCH (08:53)
[2017-02-25] MEDS: Insulin LISPRO* 1 UNITS UNIT SUBCUT SCH (08:56)
[2017-02-25 10:13] VITALS: BP 151/81
--- NOTE | 2017-02-26 03:04 | DS ---
DISCHARGE SUMMARY: DATE OF ADMISSION: 02/22/17 DATE OF DISCHARGE: 02/25/17 ADMITTING PROVIDER: Jean Carlos Crawford MD ATTENDING PHYSICIAN: Jean Carlos Crawford MD PRIMARY CARE PROVIDER: Dr. Mckeon. CHIEF COMPLAINT: Abdominal discomfort, cramping, pain, anxiety, softer bowel movements. PRINCIPAL DIAGNOSES: Diverticulitis; brief T-wave inversions. 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 She had multiple bowel movements that were soft, but not liquid, developed anxiety about her symptoms. She recently followed with Dr. Romeo, who changed her back pain management from oxycodone 10 mg 6 times a day to Dilaudid 2 to 4 mg every 6 to 8 hours, but can be taken up to 6 times a day. She has a history of diverticulitis and had a CT of the abdomen and pelvis, which showed some mild inflammatory changes in the sigmoid colon and severe diverticulosis. She had an EKG initially. It showed anterior V1 to V4 T wave inversions. A repeat EKG showed resolution of these. Initial troponin was 0.03, then 0.04 before falling back to 0.03. She was admitted initially to observation status for ACS rule out given the transient T-wave inversions in the setting of her diverticulitis. She was started on oral Cipro and Flagyl. As noted, third troponin was negative. The patient never had any chest pain, shortness of breath. The patient did not feel well overnight, had episodes of now diarrhea. C. diff was checked and was negative, likely related to the antibiotic use and the diverticulitis. Imodium was started. On the hospital day #3, still with poor tolerance of diet, ate approximately 10% of her lunch, but by dinner it had improved. The patient was feeling much better on hospital day #4 and considered ready for discharge given the tolerance of diet, improved symptoms, and plan to continuation of 7-day course of oral Cipro and Flagyl. She will have to follow up with Dr. Mckeon and her lunch cook is Dr. Tan for consideration of stress test. Her Coumadin 3 mg daily with half dose on Tuesdays and Fridays was continued, although she did get full dose on Wednesday and her INR increased from 2.1 to 2.9 to 3.7, at which point the Coumadin was held and should be held until INR can be next checked early next week, likely interaction with both the fluoroquinolones, ciprofloxacin and Flagyl, which is increasing her levels. Indication is for history of DVTs. MEDICATIONS ON DISCHARGE: Include: 1. Aspirin 81 mg daily. 2. Cholecalciferol 2000 units p.o. daily. 3. Ciprofloxacin 500 mg p.o. daily. 4. Dilaudid 2 to 4 mg p.o. q.6 to 8 hours as prescribed by Dr. Romeo. 5. Culturelle 1 capsule daily. 6. Levothyroxine 125 mcg p.o. q.a.m. 7. Imodium 2 mg p.o. daily. 8. Losartan 50 mg p.o. b.i.d. 9. Multivitamin 1 tab p.o. daily. 10. Nitroglycerin 0.4 mg sublingual q.5 minutes p.r.n. for chest pain. 11. Flagyl 500 mg p.o. t.i.d. 12. Albuterol 2 puffs inhaled q.4 hours p.r.n. 13. Betamethasone dipropionate 0.05% topical b.i.d. 14. Calcium carbonate 500 mg (Tums) p.o. b.i.d. (new). 15. Ciclopirox 0.77% gel apply topically b.i.d. 16. Cyanocobalamin 1000 mcg injection monthly. 17. Desoximetasone 0.05% gel topical daily. 18. Diclofenac 1% gel topical 4 times a day. 19. Docusate 100 mg capsule p.r.n. (held currently for looser bowel movements, though have formed now). 20. Hydrocortisone 25 mg MA q.12 hours suppository. 21. Imdur 60 mg p.o. daily. 22. Warfarin 3 mg tabs p.o. daily except for Tuesdays and Fridays, which are 1.5 mg; but of note, these have been held until early next week when INR can be rechecked. DISCHARGE DIET: Carbohydrate consistent. ACTIVITY LEVEL: No restriction. The patient currently is homebound. FOLLOWUP: The patient is to follow up with Dr. Tan and Dr. Mckeon and get INR checked Wednesday of next week. TIME SPENT ON DISCHARGE: 35 minutes. [id number]/CPS #: [id number] MTDD
== END 2017-02-25 12:41 | disposition home or self-care (01) | DRG 392 ==
LOC: ED 10:18 → MEDTELE 18:18 → ED 19:25 → OBSVTOIN 02-23 09:14
PROVIDERS: ADMIT Internal Medicine; ATTEND Internal Medicine
DX: K57.32 Diverticulitis of large intestine without perforation or abscess without bleeding (principal); I50.9 Heart failure, unspecified; I11.0 Hypertensive heart disease with heart failure; E11.9 Type 2 diabetes mellitus without complications; I25.10 Atherosclerotic heart disease of native coronary artery without angina pectoris; E78.00 Pure hypercholesterolemia, unspecified; J44.9 Chronic obstructive pulmonary disease, unspecified; K21.9 Gastro-esophageal reflux disease without esophagitis; M19.90 Unspecified osteoarthritis, unspecified site; M81.0 Age-related osteoporosis without current pathological fracture; F32.9 Major depressive disorder, single episode, unspecified; M48.00 Spinal stenosis, site unspecified; G89.29 Other chronic pain; M35.3 Polymyalgia rheumatica; M54.9 Dorsalgia, unspecified; E78.5 Hyperlipidemia, unspecified; K57.90 Diverticulosis of intestine, part unspecified, without perforation or abscess without bleeding; R19.7 Diarrhea, unspecified; Z79.82 Long term (current) use of aspirin; Z87.440 Personal history of urinary (tract) infections; Z82.49 Family history of ischemic heart disease and other diseases of the circulatory system; Z86.14 Personal history of Methicillin resistant Staphylococcus aureus infection; Z88.8 Allergy status to other drugs, medicaments and biological substances; Z88.0 Allergy status to penicillin; I25.2 Old myocardial infarction; Z86.718 Personal history of other venous thrombosis and embolism; Z95.810 Presence of automatic (implantable) cardiac defibrillator; Z88.2 Allergy status to sulfonamides; Z88.5 Allergy status to narcotic agent; Z98.42 Cataract extraction status, left eye; Z98.41 Cataract extraction status, right eye; Z86.010 Personal history of colon polyps; Z85.3 Personal history of malignant neoplasm of breast; Z95.5 Presence of coronary angioplasty implant and graft; Z86.73 Personal history of transient ischemic attack (TIA), and cerebral infarction without residual deficits; Z86.12 Personal history of poliomyelitis
CPT/HCPCS: 36415; 74176; 80048; 80053; 81003; 81015; 83605; 83690; 84484; 85025; 85610; 86140; 87086; 87493; 93005; A9270-GY; J1170; J2405

== ENCOUNTER 2017-05-24 01:18 | Inpatient (IN) | payer MEDICARE ==
[2017-05-24] MEDS ORDERED: Morphine INJ* 4 MG/ML 1 ML CARPUJECT IV ONE (01:59)
[2017-05-24] MEDS ORDERED: NS 0.9% 1000 ML* 1,000 ML IV ONE (01:59)
[2017-05-24] MEDS ORDERED: Pantoprazole IV* 40 MG IV ONE (01:59)
[2017-05-24] MEDS ORDERED: Ondansetron INJ* 2 MG/ML VIAL IV ONE (01:59)
[2017-05-24] MEDS ORDERED: HYDROmorphone INJ* 2 MG/ML CARPUJECT SYRINGE IV SLOW PU ONE (02:31)
[2017-05-24 02:33] LABS: ABS Basophils 0 10^3/ul (0-0.2); ABS Eosinophils 0 10^3/ul (0-0.6); ABS Lymphocytes 0.5 10^3/ul (1.0-4.8); ABS Monocytes 0.5 10^3/ul (0-0.8); ABS Neutrophils 5.6 10^3/ul (1.5-7.7); ABS Nucleated RBC 0 10^3/ul; Eosinophil % 0 % (0-6); Hematocrit 41 % (35-47); Hemoglobin 13.6 g/dl (12.0-16.0); Mean Corpuscular HGB Conc 34 g/dl (31-36); Mean Corpuscular Hemoglobin 31 pg (27-31); Mean Corpuscular Volume 91 fL (80-97); Mean Platelet Volume 9 um3 (7.4-10.4); Nucleated Red Blood Cells % 0; Platelet Count 222 10^3/ul (150-450); Red Blood Count 4.46 10^6/ul (4.0-5.4); Red Cell Distribution Width 14 % (10.5-15); White Blood Count 6.6 10^3/ul (3.5-10.8)
[2017-05-24 02:45] LABS: INR 3.49 (0.77-1.02)
[2017-05-24 02:54] LABS: EGFR Non-African American 34.9 (>60)
[2017-05-24] MEDS ORDERED: Iodixanol* (CONTRAST) 320 MG/ML 100 ML SDV IV ONE (03:28)
[2017-05-24] MEDS ORDERED: Diphenoxylat/Atrop 2.5-0.025M* 1 TAB PO ONE (05:36)
[2017-05-24] MEDS ORDERED: PROCHLORPERAZINE INJ 5 MG/ML 2 ML VIAL IV PRN (05:55)
--- NOTE | 2017-05-24 08:14 | RAD ---
CLINICAL HISTORY: Abdominal pain COMPARISON: February 22, 2017 TECHNIQUE: Multiple contiguous axial CT scans were obtained of the abdomen and pelvis after the administration of intravenous contrast. Coronal and sagittal multiplanar reformations are submitted for review. Oral contrast was administered. Delayed images were obtained through the abdomen and pelvis. FINDINGS: LUNG BASES: The lung bases are clear. LIVER: The liver is diffusely low in attenuation compared to the spleen. There are no focal hepatic parenchymal masses. BILE DUCTS: There is no intrahepatic or extrahepatic biliary dilatation. GALLBLADDER: The gallbladder is normal, without pericholecystic inflammatory change. PANCREAS: There is fatty atrophy of the pancreas. SPLEEN: Normal in size and appearance. UPPER GI TRACT: Evaluation of the gastrointestinal tract is limited by incomplete gastric distention. The upper GI tract is unremarkable. SMALL BOWEL AND MESENTERY: The small bowel is normal in contour, course, and caliber. There is no obstruction or dilatation. COLON: There is extensive diverticulosis of the sigmoid colon. There is no pericolonic inflammatory change. ADRENALS: Normal bilaterally. KIDNEYS: There is renal cortical parenchymal thinning. There is no hydronephrosis. BLADDER: The bladder is smooth in contour. PELVIC ORGANS: The pelvic organs are not visualized. AORTA: There is calcific atherosclerotic disease of the abdominal aorta and its branches, without aneurysmal dilatation IVC: Unremarkable LYMPH NODES: There is no lymphadenopathy by size criteria. ABDOMINAL WALL: There is a fat-containing umbilical hernia. BONES AND SOFT TISSUES: There is mild scoliotic curvature of the spine. There is diffuse osteopenia. Degenerative changes are noted. OTHER: None IMPRESSION: 1. DIVERTICULOSIS. 2. ATHEROSCLEROSIS. 3. FATTY LIVER. 4. RENAL CORTICAL PARENCHYMAL THINNING.
[2017-05-24] MEDS: NS 0.9% 1000 ML* 1,000 ML IV SCH ×2 (08:32→21:39)
[2017-05-24] MEDS ORDERED: NS 0.9% 1000 ML* 1,000 ML IV SCH (11:30)
[2017-05-24] MEDS ORDERED: Docusate CAP* 100 MG PO PRN (11:32)
[2017-05-24] MEDS ORDERED: Albuterol HFA INHALER* 8 gm MDI INH PRN (11:32)
[2017-05-24] MEDS ORDERED: Nitroglycerin TAB 0.4 MG* 0.4 MG TAB SL PRN (11:32)
[2017-05-24] MEDS ORDERED: Hydrocortisone SUPP* 25 MG SUPP (2.5%) PR PRN (11:32)
[2017-05-24] MEDS ORDERED: Vancomycin CAP* 125 MG CAP PO SCH (12:00)
[2017-05-24] MEDS ORDERED: Cyanocobalamin INJ * 1,000 MCG/ML VIAL 1 ML VIAL IM SCH (12:00)
[2017-05-24] MEDS: oxyCODONE TAB* 5 MG TAB PO PRN ×3 (12:50→21:41)
--- NOTE | 2017-05-24 16:07 | HP ---
ADDENDUM NOW INCLUDED ON THIS REPORT HISTORY AND PHYSICAL: DATE OF ADMISSION: 05/24/17 TIME OF EVALUATION: 11 a.m. PRIMARY CARE PHYSICIAN: Dr. Mckeon. CHIEF COMPLAINT: Diarrhea. HISTORY OF PRESENT ILLNESS: This is an 87-year-old female with history of diverticulitis, who presents from home with 2 days of diarrhea. She states the diarrhea is constant and cannot even quantify how many times per day she has been going over the past 2 days. She has crampy abdominal pain, but she has not had any fevers. She denies any blood in her stool and she has not had any sick contact. She has not been hospitalized recently. Her last hospitalization was in February and she has not been on any recent antibiotics. PAST MEDICAL HISTORY: 1. Chronic back pain due to osteoarthritis. 2. Coronary artery disease. 3. DVTs, on warfarin. 4. Hypertension. 5. CVA. 6. Diabetes. 7. Polymyalgia rheumatica. HOME MEDICATIONS: 1. Calcium and vitamin D. 2. Diclofenac gel. 3. Hydrocortisone cream. 4. Imodium p.r.n. 5. Multivitamins. 6. MiraLAX p.r.n. 7. Probiotic. 8. Warfarin 3 mg daily. 9. Aspirin 81 mg daily. 10. Vitamin D 1000 units daily. 11. Vitamin B12 injections monthly. 12. Docusate 100 mg daily. 13. Pepcid 20 mg daily. 14. Imdur 60 mg daily. 15. Synthroid 125 mcg daily. 16. Losartan 25 mg daily. 17. Nitro 0.4 mg sublingual p.r.n. 18. Oxycodone 10 mg q.4 p.r.n. pain. SOCIAL HISTORY: She lives at home. She has 4 daughters and 1 son who live in the area. She is a nonsmoker and nondrinker. REVIEW OF SYSTEMS: Negative for fevers, chills, chest pain, shortness of breath , or abdominal pain. Positive for nausea, vomiting, and diarrhea. PHYSICAL EXAMINATION GENERAL: Alert, ill-appearing female, in no distress. VITAL SIGNS: Temperature 98.1 degrees, heart rate 103, respiratory rate 18, pulse ox 99% on room air, blood pressure 144/70. HEENT: Dry mucosa. Pupils: Equal, round, reactive to light. NECK: No cervical lymphadenopathy. No JVP. CHEST: Regular rate and rhythm. No murmurs. PMI non-displaced. Lungs clear bilaterally. ABDOMEN: Soft. Mildly tender, diffusely. No rebound, guarding, or rigidity. No Mckay's sign. No CVA tenderness. EXTREMITIES: No edema and no rashes. Left upper extremity has limited range of motion due to pain in the left shoulder. LABORATORY DATA: White blood cells 6.6, hemoglobin 13.6, platelets 222. INR is 3.49. Sodium 135, potassium 3.9, chloride 98, bicarb 29, BUN 30, creatinine 1.42, lactic acid 2.2, lipase less than 10. C. diff positive. ASSESSMENT AND PLAN: This is an 87-year-old female with history of diverticulitis, coronary disease, and deep venous thrombosis, who is presenting today with 2 days of severe ongoing diarrhea. 1. Clostridium difficile colitis. This is her first episode of Clostridium difficile colitis. This is considered mild Clostridium difficile colitis and her initial episode. So, I am treating with vancomycin 125 mg p.o. four times a day for 10 days. I am holding her Imodium as well as her laxatives. She does not have any clear risk factors for Clostridium difficile colitis, has not been hospitalized recently on any antibiotics. This is community-acquired Clostridium difficile. Recheck after a lactate to rule out ischemic colitis contributing to her diarrhea. 2. Acute renal failure. This is likely secondary to volume depletion from severe diarrhea. Continue volume resuscitation and recheck creatinine tomorrow. 3. Coagulopathy, likely related to poor p.o. intake in the setting of warfarin. Hold warfarin today and recheck INR and LFTs tomorrow. Warfarin will need to be restarted when INR falls below 3. 4. Coronary artery disease. Continue aspirin. She does not appear to be on a statin or a beta toby. It is unclear why this is. 5. Chronic pain syndrome. Continue home pain regimen of oxycodone q.4 p.r.n. ADDENDUM: 6. DVT prophylaxis. Therapeutic anticoagulation. TIME SPENT: Greater than 60 minutes was spent on this admission. [id number] #: [id number] #: [id number] [facility]
--- NOTE | 2017-05-24 17:04 | HP ---
HISTORY AND PHYSICAL: ADDENDUM/EDIT: "On the last line of the H and P, I said DVT prophylaxis, subcu heparin, could you please take that out and say DVT prophylaxis, therapeutic anticoagulation." [id number] #: [id number] MTDD
[2017-05-24] MEDS: Vancomycin CAP* 125 MG CAP PO SCH ×2 (17:39→21:41)
--- NOTE | 2017-05-24 20:06 | ED ---
Ankush Paz Nilda, scribed for Kentrell Jenkins MD on 05/24/17 at 0209 . Abdominal Pain/Female - HPI Summary HPI Summary: This patient is an 87 year old F presenting to [facility] with a chief complaint of constant diffuse abd pain for the past 2 days. The patient rates the pain 9/10 in severity. Symptoms aggravated and alleviated by nothing. Patient reports nausea, vomiting (brown, some blood), diarrhea (liquid), and back pain. Patient denies fever. - History of Current Complaint Chief Complaint: EDNauseaVomitDiarrh Stated Complaint: N/V/D Time Seen by Provider: 05/24/17 01:47 Hx Obtained From: Patient Onset/Duration: Sudden Onset, Lasting Days, Still Present Timing: Constant Severity Currently: Severe Pain Intensity: 9 Pain Scale Used: 0-10 Numeric Location: Diffuse Radiates: Yes Radiates to: Back Aggravating Factor(s): Nothing Alleviating Factor(s): Nothing Associated Signs and Symptoms: Positive: Nausea, Vomiting, Diarrhea. Negative: Fever Allergies/Adverse Reactions: Allergies Allergy/AdvReac Type Severity Reaction Status Date / Time Codeine Allergy Severe Hallucinati Verified 01/09/16 08:59 ons Penicillins [PCN] Allergy Intermediate Hives Verified 01/09/16 08:59 Sulfamethoxazole Allergy Intermediate Hives Verified 01/09/16 08:59 w/Trimethoprim [From Septra] Tramadol [From Ultracet] Allergy Intermediate Swelling Verified 01/09/16 08:59 Acetaminophen [From Ultracet] Allergy Unknown Unknown Verified 01/09/16 08:59 Reaction Details Aspartame Allergy Unknown Unknown Verified 01/09/16 08:59 Reaction Details Fentanyl Allergy Unknown Unknown Verified 01/09/16 08:59 Reaction Details Gabapentin Allergy Unknown Unknown Verified 01/09/16 08:59 Reaction Details Loratadine [From Claritin] Allergy Unknown Unknown Verified 01/09/16 08:59 Reaction Details Morphine AdvReac Intermediate Nausea Verified 01/09/16 08:59 PMH/Surg Hx/FS Hx/Imm Hx Endocrine/Hematology History: Reports: Hx Anticoagulant Therapy, Hx Diabetes, Hx Thyroid Disease, Hx Anemia Cardiovascular History: Reports: Hx Angina, Hx Cardiac Arrest, Hx Congestive Heart Failure, Hx Coronary Artery Disease, Hx Deep Vein Thrombosis, Hx Embolism , Hx Hypercholesterolemia, Hx Hypertension, Hx Myocardial Infarction, 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, Other Cardiovascular Problems/Disorders - Hx HTN Denies: Hx Valvular Heart Disease Respiratory History: Reports: Hx Asthma, Hx Chronic Bronchitis, Hx Chronic Obstructive Pulmonary Disease (COPD), Hx Pneumonia, Hx Seasonal Allergies GI History: Reports: Hx Diverticulosis, Hx Gastroesophageal Reflux Disease, Hx Hiatal Hernia, Other GI Disorders - Colitis/Diverticulitis History: Reports: Other Problems/Disorders - frequent UTI's Denies: Hx Renal Disease Musculoskeletal History: Reports: Hx Arthritis, Hx Back Problems, Hx Osteoporosis, Other Musculoskeletal History Sensory History: Reports: Hx Cataracts - Removed 1995, Hx Contacts or Glasses, Hx Vision Problem, Hx Deafness, Hx Hearing Aid, Hx Hearing Problem Opthamlomology History: Reports: Hx Cataracts - Removed 1995, Hx Contacts or Glasses, Hx Vision Problem Neurological History: Reports: Other Neuro Impairments/Disorders - spinal stenosis Psychiatric History: Reports: Hx Depression Denies: Hx Panic Disorder, Hx Substance Abuse - Cancer History Cancer Type, Location and Year: Left breast cancer, 2003. treated with radiation. Hx Chemotherapy: No Hx Radiation Therapy: Yes - Surgical History Surgery Procedure, Year, and Place: Tonsillectomy. Appendectomy. Ovarian cyst surgery 1969. Hysterectomy 1979. Bilateral cataract surgery,. Colon polyp removal 2001. Left breast partial mastectomy 2003. Urethral dilation May 2004. 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 Denies: Hx Clostridium Difficile, Hx Hepatitis, Hx Human Immunodeficiency Virus (HIV), Hx Shingles, Hx Tuberculosis, Hx Known/Suspected VRE, Traveled Outside the [place] in Last 30 Days - Family History Known Family History: Positive: Cardiac Disease, Other - pancreatic cancer - Social History Lives: Alone Alcohol Use: None Hx Substance Use: No Substance Use Type: Reports: Prescribed Hx Tobacco Use: Yes Smoking Status (MU): Never Smoked Tobacco Type: Cigarettes Have You Smoked in the Last Year: No Review of Systems Negative: Fever Positive: Abdominal Pain, Vomiting, Diarrhea, Nausea Positive: Other - back pain All Other Systems Reviewed And Are Negative: Yes Physical Exam - Summary Physical Exam Summary: VITAL SIGNS: Reviewed. GENERAL: Patient is a well-developed and nourished female who is lying comfortable in the stretcher. Patient is not in any acute respiratory distress. HEAD AND FACE: No signs of trauma. No ecchymosis, hematomas or skull depressions. No sinus tenderness. EYES: PERRLA, EOMI x 2, No injected conjunctiva, no nystagmus. EARS: Hearing grossly intact. Ear canals and tympanic membranes are within normal limits. MOUTH: Oropharynx within normal limits. NECK: Supple, trachea is midline, no adenopathy, no JVD, no carotid bruit, no c- spine tenderness, neck with full ROM. CHEST: Symmetric, no tenderness at palpation LUNGS: Clear to auscultation bilaterally. No wheezing or crackles. CVS: Regular rate and rhythm, S1 and S2 present, no murmurs or gallops appreciated. ABDOMEN: Diffuse abd tenderness. No signs of distention. No rebound no guarding , and no masses palpated. Bowel sounds are hypoactive. EXTREMITIES: FROM in all major joints, no cyanosis or clubbing. Trace edema in bilat LE. NEURO: Alert and oriented x 3. No acute neurological deficits. Speech is normal and follows commands. SKIN: Dry and warm Triage Information Reviewed: Yes Vital Signs On Initial Exam: Initial Vitals Temp Pulse Resp BP Pulse Ox 98.1 F 103 18 144/70 99 05/24/17 01:25 05/24/17 01:25 05/24/17 01:25 05/24/17 01:25 05/24/17 01:25 Vital Signs Reviewed: Yes Diagnostics - Vital Signs Vital Signs Temp Pulse Resp BP Pulse Ox 05/24/17 01:25 98.1 F 103 18 144/70 99 - Laboratory Result Diagrams: 05/24/17 02:18 05/24/17 02:18 Lab Statement: Any lab studies that have been ordered have been reviewed, and results considered in the medical decision making process. - CT Abd/Pel CT Interpretation Completed By: Radiologist - Sigmoid diverticuosis with possible diarrheal illness.. no diverticulitis or bowel wall inflammation. Renal cortical thinning without hydronephrosis. Dr. Jenkins has reviewed this report. Abdominal Pain Fem Course/Dx - Course Course Of Treatment: 87 y/o F presenting to ER having N/V/D, and abd cramps for one day. Review lab results with pt. Most likely have acute gastroenteritsis. Given pt age and comorbidity pt will be admitted to hospital due to inability care for herself. 0539 Dr. Platt (hospitalist) agrees to admit patient. Pt will be admitted with a Dx of acute gastroenteritis. - Diagnoses Provider Diagnoses: Acute gastroenteritis - Provider Notifications Discussed Care Of Patient With: An Platt - hospitalist Time Discussed With Above Provider: 05:39 Instructed by Provider To: Admit As Inpatient Discharge - Discharge Plan Condition: Stable Disposition: ADMITTED TO [facility] The documentation as recorded by the Ankush redd Nilda accurately reflects the service I personally performed and the decisions made by , Kentrell Jenkins MD.
[2017-05-24] MEDS: Clobetasol 0.05% OINT* 30 GM TUBE TOPICAL SCH (21:40)
[2017-05-24] MEDS: Losartan TAB* 25 MG PO SCH (21:41)
[2017-05-25] MEDS: oxyCODONE TAB* 5 MG TAB PO PRN ×4 (03:56→20:47)
[2017-05-25] MEDS: Levothyroxine TAB* 125 MCG TAB PO SCH (05:20)
[2017-05-25 06:59] LABS: ABS Basophils 0 10^3/ul (0-0.2); ABS Eosinophils 0.1 10^3/ul (0-0.6); ABS Lymphocytes 0.8 10^3/ul (1.0-4.8); ABS Monocytes 0.5 10^3/ul (0-0.8); ABS Neutrophils 2.5 10^3/ul (1.5-7.7); ABS Nucleated RBC 0 10^3/ul; Eosinophil % 3.4 % (0-6); Hematocrit 33 % (35-47); Hemoglobin 11.1 g/dl (12.0-16.0); Lymphocyte % 19.5 % (25-47); Mean Corpuscular HGB Conc 34 g/dl (31-36); Mean Corpuscular Hemoglobin 31 pg (27-31); Mean Corpuscular Volume 91 fL (80-97); Mean Platelet Volume 9 um3 (7.4-10.4); Nucleated Red Blood Cells % 0; Platelet Count 162 10^3/ul (150-450); Red Blood Count 3.61 10^6/ul (4.0-5.4); Red Cell Distribution Width 14 % (10.5-15); White Blood Count 3.8 10^3/ul (3.5-10.8)
[2017-05-25 07:30] LABS: INR 5.14 (0.77-1.02)
[2017-05-25 09:51] LABS: EGFR Non-African American 51.1 (>60)
[2017-05-25] MEDS: Vancomycin CAP* 125 MG CAP PO SCH ×4 (10:38→20:47)
[2017-05-25] MEDS: Losartan TAB* 25 MG PO SCH ×2 (10:38→20:47)
[2017-05-25] MEDS: Isosorbide Mononitrate ER TAB* 60 MG PO SCH (10:38)
[2017-05-25] MEDS: Famotidine TAB* 20 MG PO SCH (10:38)
[2017-05-25] MEDS: Cholecalciferol TAB* 1000 UNITS PO SCH (10:39)
[2017-05-25] MEDS: Aspirin EC Low Dose* 81 MG TAB.EC PO SCH (10:40)
[2017-05-25] MEDS: Calcium Carbonate CHEW TAB* 500 MG (TUMS) PO PRN (11:09)
[2017-05-25] MEDS ORDERED: Al Hydrox/Mg Hydrox/Simet LIQ* 30 ML UDC PO ONE (15:32)
--- NOTE | 2017-05-25 18:26 | PN ---
Subjective Date of Service: 05/25/17 Interval History: Last BM was 430 in AM when seen around noon. No overnight BMs Feels improved Left hip pain tolerating food Objective Active Medications: Albuterol (Ventolin Hfa Inhaler*) 2 puff INH Q4HR PRN PRN Reason: SHORTNESS OF BREATH Aspirin (Aspirin Ec Low Dose*) 81 mg PO DAILY [facility] Last Admin: 05/25/17 10:40 Dose: 81 mg Calcium Carbonate (Tums*) 500 mg PO BID PRN PRN Reason: HEARTBURN Last Admin: 05/25/17 11:09 Dose: 500 mg Cholecalciferol (Vitamin D Tab*) 2,000 units PO DAILY [facility] Last Admin: 05/25/17 10:39 Dose: 2,000 units Clobetasol Propionate (Clobetasol 0.05% Oint*) 1 applic TOPICAL BEDTIME [facility] Last Admin: 05/24/17 21:40 Dose: 1 applic Cyanocobalamin (Vitamin B12 Inj *) 1,000 mcg IM MONTHLY [facility] Docusate Sodium (Colace Cap*) 100 mg PO BID PRN PRN Reason: CONSTIPATION Famotidine (Pepcid Tab*) 20 mg PO DAILY [facility] Last Admin: 05/25/17 10:38 Dose: 20 mg Hydrocortisone (Anusol Hc Supp*) 25 mg NH Q12HR PRN PRN Reason: PAIN Isosorbide Mononitrate (Imdur Er Tab*) 60 mg PO DAILY [facility] Last Admin: 05/25/17 10:38 Dose: 60 mg Levothyroxine Sodium (Synthroid Tab*) 125 mcg PO QAM@0600 [facility] Last Admin: 05/25/17 05:20 Dose: 125 mcg Losartan Potassium (Cozaar Tab*) 50 mg PO BID [facility] Last Admin: 05/25/17 10:38 Dose: 50 mg Nitroglycerin (Nitroglycerin Tab 0.4 Mg*) 0.4 mg SL Q5M PRN PRN Reason: PAIN - CHEST Ondansetron HCl (Zofran Inj*) 4 mg IV Q6H PRN PRN Reason: NAUSEA Oxycodone HCl (Roxycodone Tab*) 10 mg PO Q4H PRN PRN Reason: PAIN Last Admin: 05/25/17 16:28 Dose: 10 mg Prochlorperazine Edisylate (Compazine Inj*) 10 mg IV Q6H PRN PRN Reason: NAUSEA/VOMITING Vancomycin HCl (Vancomycin Cap*) 125 mg PO QID [facility] Last Admin: 05/25/17 17:30 Dose: 125 mg Vital Signs - 8 hr 05/25/17 05/25/17 05/25/17 10:38 16:28 16:29 Temperature 98.4 F Pulse Rate 65 Respiratory 20 18 20 Rate Blood Pressure 142/59 (mmHg) O2 Sat by Pulse 100 Oximetry 05/25/17 18:06 Temperature Pulse Rate Respiratory 20 Rate Blood Pressure (mmHg) O2 Sat by Pulse Oximetry Oxygen Devices in Use Now: None Appearance: obese, NAD Eyes: No Scleral Icterus, PERRLA Ears/Nose/Mouth/Throat: NL Teeth, Lips, Gums, Clear Oropharnyx Neck: NL Appearance and Movements; NL JVP, Trachea Midline Respiratory: Symmetrical Chest Expansion and Respiratory Effort, Clear to Auscultation Cardiovascular: RRR Abdominal: - - TTP worst in llq Neurological: Alert and Oriented x 3 Result Diagrams: 05/25/17 06:40 05/25/17 06:40 Assess/Plan/Problems-Billing Assessment: 87F p/w diarrhea found with c diff colitis - Patient Problems (1) C. difficile colitis Comment: c/w vancomycin PO If continues to improve can go home shortly (2) Supratherapeutic INR Comment: no active bleed holding coumadin check inr tomorrow (3) DVT prophylaxis Comment: holding coumadin
[2017-05-25] MEDS: Clobetasol 0.05% OINT* 30 GM TUBE TOPICAL SCH (21:37)
[2017-05-26] MEDS: oxyCODONE TAB* 5 MG TAB PO PRN ×5 (01:55→21:36)
[2017-05-26] MEDS: Levothyroxine TAB* 125 MCG TAB PO SCH (05:34)
[2017-05-26] MEDS: Calcium Carbonate CHEW TAB* 500 MG (TUMS) PO PRN (08:14)
[2017-05-26] MEDS: Aspirin EC Low Dose* 81 MG TAB.EC PO SCH (08:15)
[2017-05-26] MEDS: Losartan TAB* 25 MG PO SCH ×2 (08:15→21:36)
[2017-05-26] MEDS: Cholecalciferol TAB* 1000 UNITS PO SCH (08:15)
[2017-05-26] MEDS: Vancomycin CAP* 125 MG CAP PO SCH ×4 (08:15→21:36)
[2017-05-26] MEDS: Isosorbide Mononitrate ER TAB* 60 MG PO SCH (08:16)
[2017-05-26] MEDS: Famotidine TAB* 20 MG PO SCH (08:16)
[2017-05-26] MEDS: Al Hydrox/Mg Hydrox/Simet LIQ* 30 ML UDC PO PRN ×2 (15:54→21:36)
--- NOTE | 2017-05-26 17:29 | PN ---
Subjective Date of Service: 05/26/17 Interval History: diarrhea occurring every 1.5hrs Feels worse since yesterday Feels like there is acid in her mouth and had relief from maalox Objective Active Medications: Al Hydrox/Mg Hydrox/Simethicone (Maalox Plus*) 30 ml PO Q4H PRN PRN Reason: INDIGESTION Last Admin: 05/26/17 15:54 Dose: 30 ml Albuterol (Ventolin Hfa Inhaler*) 2 puff INH Q4HR PRN PRN Reason: SHORTNESS OF BREATH Aspirin (Aspirin Ec Low Dose*) 81 mg PO DAILY [facility] Last Admin: 05/26/17 08:15 Dose: 81 mg Calcium Carbonate (Tums*) 500 mg PO BID PRN PRN Reason: HEARTBURN Last Admin: 05/26/17 08:14 Dose: 500 mg Cholecalciferol (Vitamin D Tab*) 2,000 units PO DAILY [facility] Last Admin: 05/26/17 08:15 Dose: 2,000 units Clobetasol Propionate (Clobetasol 0.05% Oint*) 1 applic TOPICAL BEDTIME [facility] Last Admin: 05/25/17 21:37 Dose: 1 applic Cyanocobalamin (Vitamin B12 Inj *) 1,000 mcg IM MONTHLY [facility] Docusate Sodium (Colace Cap*) 100 mg PO BID PRN PRN Reason: CONSTIPATION Famotidine (Pepcid Tab*) 20 mg PO DAILY [facility] Last Admin: 05/26/17 08:16 Dose: 20 mg Hydrocortisone (Anusol Hc Supp*) 25 mg AR Q12HR PRN PRN Reason: PAIN Isosorbide Mononitrate (Imdur Er Tab*) 60 mg PO DAILY [facility] Last Admin: 05/26/17 08:16 Dose: 60 mg Levothyroxine Sodium (Synthroid Tab*) 125 mcg PO QAM@0600 [facility] Last Admin: 05/26/17 05:34 Dose: 125 mcg Losartan Potassium (Cozaar Tab*) 50 mg PO BID [facility] Last Admin: 05/26/17 08:15 Dose: 50 mg Nitroglycerin (Nitroglycerin Tab 0.4 Mg*) 0.4 mg SL Q5M PRN PRN Reason: PAIN - CHEST Ondansetron HCl (Zofran Inj*) 4 mg IV Q6H PRN PRN Reason: NAUSEA Oxycodone HCl (Roxycodone Tab*) 10 mg PO Q4H PRN PRN Reason: PAIN Last Admin: 05/26/17 17:04 Dose: 10 mg Prochlorperazine Edisylate (Compazine Inj*) 10 mg IV Q6H PRN PRN Reason: NAUSEA/VOMITING Vancomycin HCl (Vancomycin Cap*) 125 mg PO QID [facility] Last Admin: 05/26/17 17:04 Dose: 125 mg Vital Signs - 8 hr 05/26/17 05/26/17 12:36 17:04 Respiratory 18 20 Rate Oxygen Devices in Use Now: None Appearance: obese, NAD Eyes: No Scleral Icterus, PERRLA Ears/Nose/Mouth/Throat: Clear Oropharnyx Neck: NL Appearance and Movements; NL JVP, Trachea Midline Respiratory: Symmetrical Chest Expansion and Respiratory Effort, Clear to Auscultation Cardiovascular: - - IRIR Abdominal: - - soft, mild TTP throughout Lymphatic: No Cervical Adenopathy Extremities: No Edema, No Clubbing, Cyanosis Neurological: Alert and Oriented x 3 Result Diagrams: 05/25/17 06:40 05/25/17 06:40 Assess/Plan/Problems-Billing Assessment: 87F p/w diarrhea found with c diff colitis - Patient Problems (1) C. difficile colitis Comment: c/w vancomycin PO (2) Supratherapeutic INR Comment: no active bleed holding coumadin check inr tomorrow (3) DVT prophylaxis Comment: holding coumadin
[2017-05-26] MEDS: Clobetasol 0.05% OINT* 30 GM TUBE TOPICAL SCH (21:39)
[2017-05-27] MEDS: hydrALAZINE IV* 20 MG/ML VIAL IV PRN ×2 (03:54→20:58)
[2017-05-27] MEDS: oxyCODONE TAB* 5 MG TAB PO PRN ×4 (04:35→19:15)
[2017-05-27] MEDS: Levothyroxine TAB* 125 MCG TAB PO SCH (06:00)
[2017-05-27 09:05] LABS: ABS Basophils 0 10^3/ul (0-0.2); ABS Eosinophils 0 10^3/ul (0-0.6); ABS Lymphocytes 0.4 10^3/ul (1.0-4.8); ABS Monocytes 0.7 10^3/ul (0-0.8); ABS Neutrophils 5.6 10^3/ul (1.5-7.7); ABS Nucleated RBC 0 10^3/ul; Eosinophil % 0.1 % (0-6); Hematocrit 39 % (35-47); Mean Corpuscular HGB Conc 33 g/dl (31-36); Mean Corpuscular Hemoglobin 30 pg (27-31); Mean Corpuscular Volume 91 fL (80-97); Mean Platelet Volume 9 um3 (7.4-10.4); Nucleated Red Blood Cells % 0.1; Platelet Count 187 10^3/ul (150-450); Red Blood Count 4.29 10^6/ul (4.0-5.4); Red Cell Distribution Width 14 % (10.5-15); White Blood Count 6.7 10^3/ul (3.5-10.8)
[2017-05-27] MEDS: Cholecalciferol TAB* 1000 UNITS PO SCH (09:06)
[2017-05-27] MEDS: Losartan TAB* 25 MG PO SCH ×2 (09:06→20:56)
[2017-05-27] MEDS: Vancomycin CAP* 125 MG CAP PO SCH ×4 (09:07→20:56)
[2017-05-27] MEDS: Famotidine TAB* 20 MG PO SCH (09:07)
[2017-05-27] MEDS: Aspirin EC Low Dose* 81 MG TAB.EC PO SCH (09:07)
[2017-05-27] MEDS: Isosorbide Mononitrate ER TAB* 60 MG PO SCH (09:07)
[2017-05-27 09:17] LABS: INR 1.81 (0.77-1.02)
[2017-05-27 09:23] LABS: EGFR Non-African American 59.9 (>60)
[2017-05-27] MEDS: Lidocaine PATCH 5%* 1 PATCH TRANSDERM SCH (13:25)
[2017-05-27] MEDS ORDERED: Warfarin TAB(*) 3 MG PO ONE (18:41)
--- NOTE | 2017-05-27 18:46 | PN ---
Subjective Date of Service: 05/27/17 Interval History: Feels worn out but no BM in the last 8 hours chronic pain in left hip with some improvement with lidocaine patch Objective Active Medications: Al Hydrox/Mg Hydrox/Simethicone (Maalox Plus*) 30 ml PO Q4H PRN PRN Reason: INDIGESTION Last Admin: 05/26/17 21:36 Dose: 30 ml Albuterol (Ventolin Hfa Inhaler*) 2 puff INH Q4HR PRN PRN Reason: SHORTNESS OF BREATH Aspirin (Aspirin Ec Low Dose*) 81 mg PO DAILY [facility] Last Admin: 05/27/17 09:07 Dose: 81 mg Calcium Carbonate (Tums*) 500 mg PO BID PRN PRN Reason: HEARTBURN Last Admin: 05/26/17 08:14 Dose: 500 mg Cholecalciferol (Vitamin D Tab*) 2,000 units PO DAILY [facility] Last Admin: 05/27/17 09:06 Dose: 2,000 units Clobetasol Propionate (Clobetasol 0.05% Oint*) 1 applic TOPICAL BEDTIME [facility] Last Admin: 05/26/17 21:39 Dose: 1 applic Cyanocobalamin (Vitamin B12 Inj *) 1,000 mcg IM MONTHLY [facility] Docusate Sodium (Colace Cap*) 100 mg PO BID PRN PRN Reason: CONSTIPATION Famotidine (Pepcid Tab*) 20 mg PO DAILY [facility] Last Admin: 05/27/17 09:07 Dose: 20 mg Hydralazine HCl (Apresoline Iv*) 10 mg IV Q4H PRN PRN Reason: Systolic >170 Last Admin: 05/27/17 03:54 Dose: 10 mg Hydrocortisone (Anusol Hc Supp*) 25 mg DE Q12HR PRN PRN Reason: PAIN Isosorbide Mononitrate (Imdur Er Tab*) 60 mg PO DAILY [facility] Last Admin: 05/27/17 09:07 Dose: 60 mg Levothyroxine Sodium (Synthroid Tab*) 125 mcg PO QAM@0600 [facility] Last Admin: 05/27/17 06:00 Dose: 125 mcg Lidocaine (Lidoderm 5% Patch*) 1 patch TRANSDERM DAILY [facility] Last Admin: 05/27/17 13:25 Dose: 1 patch Losartan Potassium (Cozaar Tab*) 50 mg PO BID [facility] Last Admin: 05/27/17 09:06 Dose: 50 mg Nitroglycerin (Nitroglycerin Tab 0.4 Mg*) 0.4 mg SL Q5M PRN PRN Reason: PAIN - CHEST Ondansetron HCl (Zofran Inj*) 4 mg IV Q6H PRN PRN Reason: NAUSEA Oxycodone HCl (Roxycodone Tab*) 10 mg PO Q4H PRN PRN Reason: PAIN Last Admin: 05/27/17 13:34 Dose: 10 mg Pharmacy Profile Note (Lidocaine Patch Remove*) 1 note N/A 2100 [facility] Prochlorperazine Edisylate (Compazine Inj*) 10 mg IV Q6H PRN PRN Reason: NAUSEA/VOMITING Last Admin: 05/27/17 03:25 Dose: 10 mg Vancomycin HCl (Vancomycin Cap*) 125 mg PO QID [facility] Last Admin: 05/27/17 16:08 Dose: 125 mg Warfarin Sodium (Coumadin Tab(*)) 3 mg PO ONCE ONE PRN Reason: Protocol Stop: 05/27/17 18:42 Vital Signs - 8 hr 05/27/17 05/27/17 05/27/17 11:18 12:16 13:26 Temperature 100.2 F Pulse Rate 71 Respiratory 16 16 20 Rate Blood Pressure 143/71 (mmHg) O2 Sat by Pulse 95 Oximetry 05/27/17 05/27/17 13:34 15:55 Temperature Pulse Rate Respiratory 20 16 Rate Blood Pressure (mmHg) O2 Sat by Pulse Oximetry Oxygen Devices in Use Now: None Appearance: lying flat, NAD Eyes: No Scleral Icterus, PERRLA Ears/Nose/Mouth/Throat: Clear Oropharnyx, Mucous Membranes Moist Neck: NL Appearance and Movements; NL JVP, Trachea Midline Respiratory: Symmetrical Chest Expansion and Respiratory Effort, - - trace wheeze Cardiovascular: - - IRIR Abdominal: - - mild TTP epigastrum Extremities: No Edema Neurological: Alert and Oriented x 3 Result Diagrams: 05/27/17 08:53 05/27/17 08:53 Assess/Plan/Problems-Billing Assessment: 87F p/w diarrhea found with c diff colitis - Patient Problems (1) C. difficile colitis Comment: c/w vancomycin PO (2) Supratherapeutic INR Comment: improved restart coumadin (3) DVT prophylaxis Comment: restart coumadin
[2017-05-27] MEDS: Lidocaine Patch REMOVE* 1 NOTE MISC SCH (20:58)
[2017-05-27] MEDS: Clobetasol 0.05% OINT* 30 GM TUBE TOPICAL SCH (20:59)
[2017-05-28 02:10] LABS: Urine Appearance Clear; Urine Blood Negative (Negative); Urine Color Straw; Urine Ketones Negative (Negative); Urine Protein Negative (Negative); Urine Specific Gravity 1.002 (1.010-1.030); Urine Urobilinogen Negative (Negative)
[2017-05-28] MEDS: oxyCODONE TAB* 5 MG TAB PO PRN ×4 (05:54→20:11)
[2017-05-28] MEDS: Levothyroxine TAB* 125 MCG TAB PO SCH (05:54)
[2017-05-28 07:45] LABS: INR 1.75 (0.77-1.02)
[2017-05-28] MEDS: Aspirin EC Low Dose* 81 MG TAB.EC PO SCH (09:17)
[2017-05-28] MEDS: Isosorbide Mononitrate ER TAB* 60 MG PO SCH (09:17)
[2017-05-28] MEDS: Famotidine TAB* 20 MG PO SCH (09:17)
[2017-05-28] MEDS: Losartan TAB* 25 MG PO SCH ×2 (09:17→20:12)
[2017-05-28] MEDS: Vancomycin CAP* 125 MG CAP PO SCH ×4 (09:17→20:12)
[2017-05-28] MEDS: Cholecalciferol TAB* 1000 UNITS PO SCH (09:17)
[2017-05-28] MEDS: Lidocaine PATCH 5%* 1 PATCH TRANSDERM SCH (09:18)
[2017-05-28] MEDS: Ondansetron INJ* 2 MG/ML VIAL IV PRN (14:12)
--- NOTE | 2017-05-28 15:44 | PN ---
Subjective Date of Service: 05/28/17 Interval History: Diarrhea infrequently but still loose when has BM or voids Lidocaine is helping left hip but feels that lying in bed is making pain worse PT notes reviewed and while pt can ambulate 75 ft she is still remarkable weak Objective Active Medications: Al Hydrox/Mg Hydrox/Simethicone (Maalox Plus*) 30 ml PO Q4H PRN PRN Reason: INDIGESTION Last Admin: 05/26/17 21:36 Dose: 30 ml Albuterol (Ventolin Hfa Inhaler*) 2 puff INH Q4HR PRN PRN Reason: SHORTNESS OF BREATH Aspirin (Aspirin Ec Low Dose*) 81 mg PO DAILY [facility] Last Admin: 05/28/17 09:17 Dose: 81 mg Calcium Carbonate (Tums*) 500 mg PO BID PRN PRN Reason: HEARTBURN Last Admin: 05/26/17 08:14 Dose: 500 mg Cholecalciferol (Vitamin D Tab*) 2,000 units PO DAILY [facility] Last Admin: 05/28/17 09:17 Dose: 2,000 units Clobetasol Propionate (Clobetasol 0.05% Oint*) 1 applic TOPICAL BEDTIME [facility] Last Admin: 05/27/17 20:59 Dose: 1 applic Cyanocobalamin (Vitamin B12 Inj *) 1,000 mcg IM MONTHLY [facility] Docusate Sodium (Colace Cap*) 100 mg PO BID PRN PRN Reason: CONSTIPATION Famotidine (Pepcid Tab*) 20 mg PO DAILY [facility] Last Admin: 05/28/17 09:17 Dose: 20 mg Hydralazine HCl (Apresoline Iv*) 10 mg IV Q4H PRN PRN Reason: Systolic >170 Last Admin: 05/27/17 20:58 Dose: 10 mg Hydrocortisone (Anusol Hc Supp*) 25 mg NE Q12HR PRN PRN Reason: PAIN Isosorbide Mononitrate (Imdur Er Tab*) 60 mg PO DAILY [facility] Last Admin: 05/28/17 09:17 Dose: 60 mg Levothyroxine Sodium (Synthroid Tab*) 125 mcg PO QAM@0600 [facility] Last Admin: 05/28/17 05:54 Dose: 125 mcg Lidocaine (Lidoderm 5% Patch*) 1 patch TRANSDERM DAILY [facility] Last Admin: 05/28/17 09:18 Dose: 1 patch Losartan Potassium (Cozaar Tab*) 50 mg PO BID [facility] Last Admin: 05/28/17 09:17 Dose: 50 mg Nitroglycerin (Nitroglycerin Tab 0.4 Mg*) 0.4 mg SL Q5M PRN PRN Reason: PAIN - CHEST Ondansetron HCl (Zofran Inj*) 4 mg IV Q6H PRN PRN Reason: NAUSEA Last Admin: 05/28/17 14:12 Dose: 4 mg Oxycodone HCl (Roxycodone Tab*) 10 mg PO Q4H PRN PRN Reason: PAIN Last Admin: 05/28/17 14:49 Dose: 10 mg Pharmacy Profile Note (Lidocaine Patch Remove*) 1 note N/A 2100 [facility] Last Admin: 05/27/17 20:58 Dose: 1 note Prochlorperazine Edisylate (Compazine Inj*) 10 mg IV Q6H PRN PRN Reason: NAUSEA/VOMITING Last Admin: 05/27/17 03:25 Dose: 10 mg Vancomycin HCl (Vancomycin Cap*) 125 mg PO QID [facility] Last Admin: 05/28/17 14:12 Dose: 125 mg Vital Signs - 8 hr 05/28/17 05/28/17 05/28/17 08:02 09:06 10:54 Temperature 98.4 F Pulse Rate 78 Respiratory 16 20 16 Rate Blood Pressure 157/79 (mmHg) O2 Sat by Pulse 95 Oximetry 05/28/17 14:49 Temperature Pulse Rate Respiratory 18 Rate Blood Pressure (mmHg) O2 Sat by Pulse Oximetry Oxygen Devices in Use Now: None Appearance: obese, lying flat, NAD Eyes: No Scleral Icterus, PERRLA Ears/Nose/Mouth/Throat: Clear Oropharnyx, Mucous Membranes Moist Neck: NL Appearance and Movements; NL JVP, Trachea Midline Respiratory: Symmetrical Chest Expansion and Respiratory Effort, - - wheeze right on expiration Cardiovascular: - - IRIR Abdominal: NL Sounds; No Tenderness; No Distention, No Hepatosplenomegaly Lymphatic: No Cervical Adenopathy Extremities: No Edema Neurological: Alert and Oriented x 3 Result Diagrams: 05/27/17 08:53 05/27/17 08:53 Assess/Plan/Problems-Billing Assessment: 87F p/w diarrhea found with c diff colitis - Patient Problems (1) C. difficile colitis Comment: c/w vancomycin PO improving (2) Supratherapeutic INR Comment: improved restart coumadin 3mg 05/27 coumadin 4 mg 05/28 then dose per pharmacy (3) DVT prophylaxis Comment: restart coumadin
[2017-05-28] MEDS ORDERED: Warfarin TAB(*) 4 MG PO ONE (17:00)
[2017-05-28] MEDS: Clobetasol 0.05% OINT* 30 GM TUBE TOPICAL SCH (20:11)
[2017-05-28] MEDS: Lidocaine Patch REMOVE* 1 NOTE MISC SCH (20:12)
[2017-05-29] MEDS: oxyCODONE TAB* 5 MG TAB PO PRN ×4 (05:06→19:19)
[2017-05-29] MEDS: Levothyroxine TAB* 125 MCG TAB PO SCH (05:06)
--- NOTE | 2017-05-29 08:29 | PN ---
Subjective Date of Service: 05/29/17 Interval History: Pt is feeling ok. She states her biggest issue currently is pain in her L hip. This is a chronic problem and states at home she uses a compounded cream to the sore spot which helps. She states her last BM was 2 days ago. Objective Active Medications: Al Hydrox/Mg Hydrox/Simethicone (Maalox Plus*) 30 ml PO Q4H PRN PRN Reason: INDIGESTION Last Admin: 05/26/17 21:36 Dose: 30 ml Albuterol (Ventolin Hfa Inhaler*) 2 puff INH Q4HR PRN PRN Reason: SHORTNESS OF BREATH Aspirin (Aspirin Ec Low Dose*) 81 mg PO DAILY [facility] Last Admin: 05/28/17 09:17 Dose: 81 mg Calcium Carbonate (Tums*) 500 mg PO BID PRN PRN Reason: HEARTBURN Last Admin: 05/26/17 08:14 Dose: 500 mg Cholecalciferol (Vitamin D Tab*) 2,000 units PO DAILY [facility] Last Admin: 05/28/17 09:17 Dose: 2,000 units Clobetasol Propionate (Clobetasol 0.05% Oint*) 1 applic TOPICAL BEDTIME [facility] Last Admin: 05/28/17 20:11 Dose: 1 applic Famotidine (Pepcid Tab*) 20 mg PO DAILY [facility] Last Admin: 05/28/17 09:17 Dose: 20 mg Hydralazine HCl (Apresoline Iv*) 10 mg IV Q4H PRN PRN Reason: Systolic >170 Last Admin: 05/27/17 20:58 Dose: 10 mg Hydrocortisone (Anusol Hc Supp*) 25 mg [place] Q12HR PRN PRN Reason: PAIN Isosorbide Mononitrate (Imdur Er Tab*) 60 mg PO DAILY [facility] Last Admin: 05/28/17 09:17 Dose: 60 mg Levothyroxine Sodium (Synthroid Tab*) 125 mcg PO QAM@0600 [facility] Last Admin: 05/29/17 05:06 Dose: 125 mcg Lidocaine (Lidoderm 5% Patch*) 1 patch TRANSDERM DAILY [facility] Last Admin: 05/28/17 09:18 Dose: 1 patch Losartan Potassium (Cozaar Tab*) 50 mg PO BID [facility] Last Admin: 05/28/17 20:12 Dose: 50 mg Nitroglycerin (Nitroglycerin Tab 0.4 Mg*) 0.4 mg SL Q5M PRN PRN Reason: PAIN - CHEST Ondansetron HCl (Zofran Inj*) 4 mg IV Q6H PRN PRN Reason: NAUSEA Last Admin: 05/28/17 14:12 Dose: 4 mg Oxycodone HCl (Roxycodone Tab*) 10 mg PO Q4H PRN PRN Reason: PAIN Last Admin: 05/29/17 05:06 Dose: 10 mg Pharmacy Profile Note (Lidocaine Patch Remove*) 1 note N/A 2100 [facility] Last Admin: 05/28/17 20:12 Dose: 1 note Pharmacy Profile Note (Coumadin Per Pharmacy*) 1 note FOLLOW UP .PER PHARMACY PROTOC [facility] PRN Reason: Protocol Pharmacy Profile Note (Coumadin Daily Reminder*) 1 note FOLLOW UP 1700 [facility] Last Admin: 05/28/17 17:41 Dose: 1 note Prochlorperazine Edisylate (Compazine Inj*) 10 mg IV Q6H PRN PRN Reason: NAUSEA/VOMITING Last Admin: 05/27/17 03:25 Dose: 10 mg Vancomycin HCl (Vancomycin Cap*) 125 mg PO QID [facility] Last Admin: 05/28/17 20:12 Dose: 125 mg Vital Signs - 8 hr 05/29/17 05/29/17 05/29/17 00:24 03:38 05:06 Temperature 98.1 F Pulse Rate 74 Respiratory 14 18 20 Rate Blood Pressure 146/73 (mmHg) O2 Sat by Pulse 95 Oximetry Oxygen Devices in Use Now: None Appearance: Elderly female lying in bed, NAD Eyes: No Scleral Icterus Ears/Nose/Mouth/Throat: Mucous Membranes Moist Respiratory: Symmetrical Chest Expansion and Respiratory Effort, Clear to Auscultation Cardiovascular: NL Sounds; No Murmurs; No JVD, RRR, No Edema Abdominal: - - BS+ soft, ND, mildly tender to palpation Extremities: No Clubbing, Cyanosis Skin: No Nodules or Sclerosis Neurological: Alert and Oriented x 3 Result Diagrams: 05/27/17 08:53 05/27/17 08:53 Assess/Plan/Problems-Billing Ms Chan is an 87 yo F who has a h/o CAD, 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 - Patient Problems (1) C. difficile colitis Current Visit: Yes Status: Acute Comment: Diarrhea has resolved. Will continue vancomycin 125mg QID to complete 10 days of therapy. Today is D#5. The patient has become quite weak from the severe diarrhea and it is now recommended she go for STR. She would like to go to [facility]. (2) Chronic back pain Current Visit: Yes Status: Chronic Code(s): M54.9 - DORSALGIA, UNSPECIFIED; G89.29 - OTHER CHRONIC PAIN SNOMED Code(s): 425400127 Comment: The patient has chronic back and L hip pain. Her hip is currently bothering her the most. Continue oxycodone prn, lidocaine patch. She will continue alternating heat and ice as well. (3) CAD (coronary artery disease) Current Visit: Yes Status: Acute Code(s): I25.10 - ATHSCL HEART DISEASE OF [place] CORONARY ARTERY W/O ANG PCTRS SNOMED Code(s): 13351257 Comment: No complaints currently. Will continue ASA, imdur and losartan. (4) H/O deep venous thrombosis Current Visit: Yes Status: Chronic Code(s): Z86.718 - PERSONAL HISTORY OF OTHER VENOUS THROMBOSIS AND EMBOLISM SNOMED Code(s): 449911232 Comment: INR is now subtherapeutic. If INR not in range today will start full dose lovenox to bridge. (5) Diabetes Current Visit: Yes Status: Chronic Onset Date: 01/06/15 Code(s): E11.9 - TYPE 2 DIABETES MELLITUS WITHOUT COMPLICATIONS SNOMED Code(s): 48847324 Comment: Diet controlled with AM sugars under good control. (6) Hypertension Current Visit: Yes Status: Chronic Onset Date: 01/06/15 Code(s): I10 - ESSENTIAL (PRIMARY) HYPERTENSION SNOMED Code(s): 70294595 Comment: BP is intermittently elevated. Will continue current regimen. If her BP remains elevated can consider adding amlodipine. (7) Hypothyroidism Current Visit: Yes Status: Chronic Code(s): E03.9 - HYPOTHYROIDISM, UNSPECIFIED SNOMED Code(s): 99651970 Comment: Continue current dose of synthroid. Most recent TSH was 06/2016-will get new level. (8) GERD (gastroesophageal reflux disease) Current Visit: Yes Status: Chronic Code(s): K21.9 - GASTRO-ESOPHAGEAL REFLUX DISEASE WITHOUT ESOPHAGITIS SNOMED Code(s): 009053258 Comment: Continue famotidine. (9) DVT prophylaxis Current Visit: Yes Status: Acute Code(s): OHJ9650 - SNOMED Code(s): 645466885 Comment: INR pending for this AM. Continue coumadin per pharmacy dosing. If INR subtherapeutic will start full dose lovenox to bridge. (10) Full code status Current Visit: Yes Status: Acute Code(s): Z78.9 - OTHER SPECIFIED HEALTH STATUS SNOMED Code(s): 439691760
[2017-05-29] MEDS: Cholecalciferol TAB* 1000 UNITS PO SCH (08:43)
[2017-05-29] MEDS: Losartan TAB* 25 MG PO SCH ×2 (08:43→21:21)
[2017-05-29] MEDS: Aspirin EC Low Dose* 81 MG TAB.EC PO SCH (08:43)
[2017-05-29] MEDS: Vancomycin CAP* 125 MG CAP PO SCH ×4 (08:43→21:21)
[2017-05-29] MEDS: Famotidine TAB* 20 MG PO SCH (08:44)
[2017-05-29] MEDS: Isosorbide Mononitrate ER TAB* 60 MG PO SCH (08:44)
[2017-05-29] MEDS: Lidocaine PATCH 5%* 1 PATCH TRANSDERM SCH (08:44)
[2017-05-29 09:15] LABS: INR 2.43 (0.77-1.02)
[2017-05-29] MEDS ORDERED: Warfarin TAB(*) 2 MG PO ONE (17:00)
[2017-05-29] MEDS: Clobetasol 0.05% OINT* 30 GM TUBE TOPICAL SCH (21:22)
[2017-05-29] MEDS: Lidocaine Patch REMOVE* 1 NOTE MISC SCH (21:23)
[2017-05-30] MEDS: oxyCODONE TAB* 5 MG TAB PO PRN ×5 (01:34→20:14)
[2017-05-30] MEDS: Levothyroxine TAB* 125 MCG TAB PO SCH (06:18)
[2017-05-30 06:48] LABS: INR 2.14 (0.77-1.02)
--- NOTE | 2017-05-30 08:45 | PN ---
Subjective Date of Service: 05/30/17 Interval History: Pt is feeling a little better today. Her pain is more manageable this AM. She has not had a BM in about 3 days. She wants to go to [facility] tomorrow. Objective Active Medications: Al Hydrox/Mg Hydrox/Simethicone (Maalox Plus*) 30 ml PO Q4H PRN PRN Reason: INDIGESTION Last Admin: 05/26/17 21:36 Dose: 30 ml Albuterol (Ventolin Hfa Inhaler*) 2 puff INH Q4HR PRN PRN Reason: SHORTNESS OF BREATH Aspirin (Aspirin Ec Low Dose*) 81 mg PO DAILY [facility] Last Admin: 05/29/17 08:43 Dose: 81 mg Calcium Carbonate (Tums*) 500 mg PO BID PRN PRN Reason: HEARTBURN Last Admin: 05/26/17 08:14 Dose: 500 mg Cholecalciferol (Vitamin D Tab*) 2,000 units PO DAILY [facility] Last Admin: 05/29/17 08:43 Dose: 2,000 units Clobetasol Propionate (Clobetasol 0.05% Oint*) 1 applic TOPICAL BEDTIME [facility] Last Admin: 05/29/17 21:22 Dose: 1 applic Famotidine (Pepcid Tab*) 20 mg PO DAILY [facility] Last Admin: 05/29/17 08:44 Dose: 20 mg Hydralazine HCl (Apresoline Iv*) 10 mg IV Q4H PRN PRN Reason: Systolic >170 Last Admin: 05/27/17 20:58 Dose: 10 mg Hydrocortisone (Anusol Hc Supp*) [address] Q12HR PRN PRN Reason: PAIN Isosorbide Mononitrate (Imdur Er Tab*) 60 mg PO DAILY [facility] Last Admin: 05/29/17 08:44 Dose: 60 mg Levothyroxine Sodium (Synthroid Tab*) 125 mcg PO QAM@0600 [facility] Last Admin: 05/30/17 06:18 Dose: 125 mcg Lidocaine (Lidoderm 5% Patch*) 1 patch TRANSDERM DAILY [facility] Last Admin: 05/29/17 08:44 Dose: 1 patch Losartan Potassium (Cozaar Tab*) 50 mg PO BID [facility] Last Admin: 05/29/17 21:21 Dose: 50 mg Nitroglycerin (Nitroglycerin Tab 0.4 Mg*) 0.4 mg SL Q5M PRN PRN Reason: PAIN - CHEST Ondansetron HCl (Zofran Inj*) 4 mg IV Q6H PRN PRN Reason: NAUSEA Last Admin: 05/28/17 14:12 Dose: 4 mg Oxycodone HCl (Roxycodone Tab*) 10 mg PO Q4H PRN PRN Reason: PAIN Last Admin: 05/30/17 06:18 Dose: 10 mg Pharmacy Profile Note (Lidocaine Patch Remove*) 1 note N/A 2100 [facility] Last Admin: 05/29/17 21:23 Dose: 1 note Pharmacy Profile Note (Coumadin Per Pharmacy*) 1 note FOLLOW UP .PER PHARMACY PROTOC [facility] PRN Reason: Protocol Prochlorperazine Edisylate (Compazine Inj*) 10 mg IV Q6H PRN PRN Reason: NAUSEA/VOMITING Last Admin: 05/27/17 03:25 Dose: 10 mg Vancomycin HCl (Vancomycin Cap*) 125 mg PO QID [facility] Last Admin: 05/29/17 21:21 Dose: 125 mg Warfarin Sodium (Coumadin Tab(*)) 3 mg PO 1700 [facility] Stop: 05/30/17 17:01 Vital Signs - 8 hr 05/30/17 05/30/17 05/30/17 01:34 03:08 06:18 Respiratory 18 16 18 Rate Oxygen Devices in Use Now: None Appearance: Elderly female sitting up in bed, NAD Eyes: No Scleral Icterus Ears/Nose/Mouth/Throat: Mucous Membranes Moist Respiratory: Symmetrical Chest Expansion and Respiratory Effort, Clear to Auscultation Cardiovascular: NL Sounds; No Murmurs; No JVD, RRR, No Edema Abdominal: - - BS+ soft, ND, mildly tender in LUQ Extremities: No Clubbing, Cyanosis Skin: No Rash or Ulcers, No Nodules or Sclerosis Neurological: Alert and Oriented x 3 Result Diagrams: 05/27/17 08:53 05/27/17 08:53 Assess/Plan/Problems-Billing Ms Chan is an 87 yo F who has a h/o CAD, 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 - Patient Problems (1) C. difficile colitis Current Visit: Yes Status: Acute Comment: Diarrhea has resolved. Will continue vancomycin 125mg QID to complete 10 days of therapy. Today is D#6. The patient has become quite weak from the severe diarrhea and it is now recommended she go for [facility]. She would like to go to [facility]-she is under the impression she has a bed offer already but this is not the case. Await offer. (2) Chronic back pain Current Visit: Yes Status: Chronic Code(s): M54.9 - DORSALGIA, UNSPECIFIED; G89.29 - OTHER CHRONIC PAIN SNOMED Code(s): 292783072 Comment: The patient has chronic back and L hip pain. Her hip is currently bothering her the most. Continue oxycodone prn, lidocaine patch. She will continue alternating heat and ice as well. (3) CAD (coronary artery disease) Current Visit: Yes Status: Acute Code(s): I25.10 - ATHSCL HEART DISEASE OF [place] CORONARY ARTERY W/O ANG PCTRS SNOMED Code(s): 30222700 Comment: No complaints currently. Will continue ASA, imdur and losartan. (4) H/O deep venous thrombosis Current Visit: Yes Status: Chronic Code(s): Z86.718 - PERSONAL HISTORY OF OTHER VENOUS THROMBOSIS AND EMBOLISM SNOMED Code(s): 287846424 Comment: INR therapeutic. Continue pharmacy dosing. (5) Diabetes Current Visit: Yes Status: Chronic Onset Date: 01/06/15 Code(s): E11.9 - TYPE 2 DIABETES MELLITUS WITHOUT COMPLICATIONS SNOMED Code(s): 94267383 Comment: Diet controlled. (6) Hypertension Current Visit: Yes Status: Chronic Onset Date: 01/06/15 Code(s): I10 - ESSENTIAL (PRIMARY) HYPERTENSION SNOMED Code(s): 48446400 Comment: BP is acceptable over the last 24hr. Continue current medication regimen. (7) Hypothyroidism Current Visit: Yes Status: Chronic Code(s): E03.9 - HYPOTHYROIDISM, UNSPECIFIED SNOMED Code(s): 65894832 Comment: TSH is elevated but will check Free T4. For now continue current dose of synthroid. (8) GERD (gastroesophageal reflux disease) Current Visit: Yes Status: Chronic Code(s): K21.9 - GASTRO-ESOPHAGEAL REFLUX DISEASE WITHOUT ESOPHAGITIS SNOMED Code(s): 831428443 Comment: Continue famotidine. (9) DVT prophylaxis Current Visit: Yes Status: Acute Code(s): BLU9024 - SNOMED Code(s): 243766254 Comment: Therapeutic INR (10) Full code status Current Visit: Yes Status: Acute Code(s): Z78.9 - OTHER SPECIFIED HEALTH STATUS SNOMED Code(s): 106647886
[2017-05-30] MEDS: Isosorbide Mononitrate ER TAB* 60 MG PO SCH (09:41)
[2017-05-30] MEDS: Lidocaine PATCH 5%* 1 PATCH TRANSDERM SCH (09:41)
[2017-05-30] MEDS: Famotidine TAB* 20 MG PO SCH (09:41)
[2017-05-30] MEDS: Cholecalciferol TAB* 1000 UNITS PO SCH (09:41)
[2017-05-30] MEDS: Losartan TAB* 25 MG PO SCH ×2 (09:42→20:14)
[2017-05-30] MEDS: Vancomycin CAP* 125 MG CAP PO SCH ×4 (09:42→20:14)
[2017-05-30] MEDS: Aspirin EC Low Dose* 81 MG TAB.EC PO SCH (09:42)
[2017-05-30] MEDS ORDERED: Warfarin TAB(*) 3 MG PO SCH (17:00)
[2017-05-30] MEDS: Clobetasol 0.05% OINT* 30 GM TUBE TOPICAL SCH (20:14)
[2017-05-30] MEDS: Lidocaine Patch REMOVE* 1 NOTE MISC SCH (20:15)
[2017-05-31] MEDS: oxyCODONE TAB* 5 MG TAB PO PRN ×4 (01:58→20:18)
[2017-05-31] MEDS: Levothyroxine TAB* 125 MCG TAB PO SCH (05:25)
[2017-05-31 06:47] LABS: Hematocrit 38 % (35-47); Hemoglobin 12.8 g/dl (12.0-16.0); Mean Platelet Volume 9 um3 (7.4-10.4); Platelet Count 169 10^3/ul (150-450)
[2017-05-31 07:00] LABS: INR 1.82 (0.77-1.02)
[2017-05-31] MEDS: Losartan TAB* 25 MG PO SCH ×2 (08:13→20:18)
[2017-05-31] MEDS: Vancomycin CAP* 125 MG CAP PO SCH ×4 (08:13→20:18)
[2017-05-31] MEDS: Cholecalciferol TAB* 1000 UNITS PO SCH (08:14)
[2017-05-31] MEDS: Aspirin EC Low Dose* 81 MG TAB.EC PO SCH (08:14)
[2017-05-31] MEDS: Famotidine TAB* 20 MG PO SCH (08:14)
[2017-05-31] MEDS: Isosorbide Mononitrate ER TAB* 60 MG PO SCH (08:14)
[2017-05-31] MEDS: Ondansetron INJ* 2 MG/ML VIAL IV PRN (08:22)
[2017-05-31] MEDS: Lidocaine PATCH 5%* 1 PATCH TRANSDERM SCH (08:27)
--- NOTE | 2017-05-31 15:01 | PN ---
Subjective Date of Service: 05/31/17 Interval History: Pt is feeling ok today. She states she slept poorly last night. Also she states when she passed gas she also passed some mushy stool. She is ready to go to [facility] tomorrow. Objective Active Medications: Al Hydrox/Mg Hydrox/Simethicone (Maalox Plus*) 30 ml PO Q4H PRN PRN Reason: INDIGESTION Last Admin: 05/26/17 21:36 Dose: 30 ml Albuterol (Ventolin Hfa Inhaler*) 2 puff INH Q4HR PRN PRN Reason: SHORTNESS OF BREATH Aspirin (Aspirin Ec Low Dose*) 81 mg PO DAILY [facility] Last Admin: 05/31/17 08:14 Dose: 81 mg Calcium Carbonate (Tums*) 500 mg PO BID PRN PRN Reason: HEARTBURN Last Admin: 05/26/17 08:14 Dose: 500 mg Cholecalciferol (Vitamin D Tab*) 2,000 units PO DAILY [facility] Last Admin: 05/31/17 08:14 Dose: 2,000 units Clobetasol Propionate (Clobetasol 0.05% Oint*) 1 applic TOPICAL BEDTIME [facility] Last Admin: 05/30/17 20:14 Dose: 1 applic Famotidine (Pepcid Tab*) 20 mg PO DAILY [facility] Last Admin: 05/31/17 08:14 Dose: 20 mg Hydralazine HCl (Apresoline Iv*) 10 mg IV Q4H PRN PRN Reason: Systolic >170 Last Admin: 05/27/17 20:58 Dose: 10 mg Hydrocortisone (Anusol Hc Supp*) 25 mg ID Q12HR PRN PRN Reason: PAIN Isosorbide Mononitrate (Imdur Er Tab*) 60 mg PO DAILY [facility] Last Admin: 05/31/17 08:14 Dose: 60 mg Levothyroxine Sodium (Synthroid Tab*) 125 mcg PO QAM@0600 [facility] Last Admin: 05/31/17 05:25 Dose: 125 mcg Lidocaine (Lidoderm 5% Patch*) 1 patch TRANSDERM DAILY [facility] Last Admin: 05/31/17 08:27 Dose: Not Given Losartan Potassium (Cozaar Tab*) 50 mg PO BID [facility] Last Admin: 05/31/17 08:13 Dose: 50 mg Nitroglycerin (Nitroglycerin Tab 0.4 Mg*) 0.4 mg SL Q5M PRN PRN Reason: PAIN - CHEST Ondansetron HCl (Zofran Inj*) 4 mg IV Q6H PRN PRN Reason: NAUSEA Last Admin: 05/31/17 08:22 Dose: 4 mg Pharmacy Profile Note (Lidocaine Patch Remove*) 1 note N/A 2100 [facility] Last Admin: 05/30/17 20:15 Dose: 1 note Pharmacy Profile Note (Coumadin Per Pharmacy*) 1 note FOLLOW UP .PER PHARMACY PROTOC [facility] PRN Reason: Protocol Prochlorperazine Edisylate (Compazine Inj*) 10 mg IV Q6H PRN PRN Reason: NAUSEA/VOMITING Last Admin: 05/27/17 03:25 Dose: 10 mg Vancomycin HCl (Vancomycin Cap*) 125 mg PO QID [facility] Last Admin: 05/31/17 13:04 Dose: 125 mg Warfarin Sodium (Coumadin Tab(*)) 4 mg PO 1700 [facility] Stop: 05/31/17 17:01 Vital Signs - 8 hr 05/31/17 05/31/17 05/31/17 07:50 08:00 09:13 Temperature 98.8 F Pulse Rate 80 Respiratory 18 18 18 Rate Blood Pressure 178/97 (mmHg) O2 Sat by Pulse 97 Oximetry 05/31/17 11:54 Temperature 98.1 F Pulse Rate 64 Respiratory 18 Rate Blood Pressure 108/54 (mmHg) O2 Sat by Pulse 93 Oximetry Oxygen Devices in Use Now: None Appearance: Elderly female lying in bed, NAD Eyes: No Scleral Icterus Ears/Nose/Mouth/Throat: Mucous Membranes Moist Respiratory: Symmetrical Chest Expansion and Respiratory Effort, Clear to Auscultation Cardiovascular: NL Sounds; No Murmurs; No JVD, RRR, No Edema Abdominal: NL Sounds; No Tenderness; No Distention Extremities: No Clubbing, Cyanosis Skin: No Rash or Ulcers, No Nodules or Sclerosis Neurological: Alert and Oriented x 3 Result Diagrams: 05/31/17 06:04 05/27/17 08:53 Assess/Plan/Problems-Billing Ms Chan is an 87 yo F who has a h/o CAD, 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 - Patient Problems (1) C. difficile colitis Current Visit: Yes Status: Acute Comment: Diarrhea has gnerally resolved- she did have some mushy stool this AM. Will continue vancomycin 125mg QID to complete 10 days of therapy. Today is D#7. The plan is for the patient to go to [facility] tomorrow for STR. (2) Chronic back pain Current Visit: Yes Status: Chronic Code(s): M54.9 - DORSALGIA, UNSPECIFIED; G89.29 - OTHER CHRONIC PAIN SNOMED Code(s): 674237577 Comment: The patient has chronic back and L hip pain. Continue oxycodone prn , lidocaine patch. (3) CAD (coronary artery disease) Current Visit: Yes Status: Acute Code(s): I25.10 - ATHSCL HEART DISEASE OF [place] CORONARY ARTERY W/O ANG PCTRS SNOMED Code(s): 11736135 Comment: No complaints. Will continue ASA, imdur and losartan. (4) H/O deep venous thrombosis Current Visit: Yes Status: Chronic Code(s): Z86.718 - PERSONAL HISTORY OF OTHER VENOUS THROMBOSIS AND EMBOLISM SNOMED Code(s): 122714265 Comment: INR is subtherapeutic today. Continue pharmacy dosing. (5) Diabetes Current Visit: Yes Status: Chronic Onset Date: 01/06/15 Code(s): E11.9 - TYPE 2 DIABETES MELLITUS WITHOUT COMPLICATIONS SNOMED Code(s): 83901538 Comment: Diet controlled. (6) Hypertension Current Visit: Yes Status: Chronic Onset Date: 01/06/15 Code(s): I10 - ESSENTIAL (PRIMARY) HYPERTENSION SNOMED Code(s): 53055717 Comment: BP is generally under good control. Continue current medication regimen. (7) Hypothyroidism Current Visit: Yes Status: Chronic Code(s): E03.9 - HYPOTHYROIDISM, UNSPECIFIED SNOMED Code(s): 10863453 Comment: Free T4 is also high. Will continue current dose of synthroid but she will need a repeat check in 3-4 weeks of both the TSH and Free T4. (8) GERD (gastroesophageal reflux disease) Current Visit: Yes Status: Chronic Code(s): K21.9 - GASTRO-ESOPHAGEAL REFLUX DISEASE WITHOUT ESOPHAGITIS SNOMED Code(s): 018002886 Comment: Continue famotidine. (9) DVT prophylaxis Current Visit: Yes Status: Acute Code(s): UFC9668 - SNOMED Code(s): 322222168 Comment: coumadin (10) Full code status Current Visit: Yes Status: Acute Code(s): Z78.9 - OTHER SPECIFIED HEALTH STATUS SNOMED Code(s): 466555314
[2017-05-31] MEDS ORDERED: oxyCODONE TAB* 5 MG TAB ONE (16:14)
[2017-05-31] MEDS ORDERED: Warfarin TAB(*) 4 MG PO ONE (17:00)
[2017-05-31] MEDS: Clobetasol 0.05% OINT* 30 GM TUBE TOPICAL SCH (20:19)
[2017-05-31] MEDS: Lidocaine Patch REMOVE* 1 NOTE MISC SCH ×2 (20:19→21:00)
[2017-06-01] MEDS: oxyCODONE TAB* 5 MG TAB PO PRN ×3 (01:31→09:50)
[2017-06-01] MEDS: Ondansetron INJ* 2 MG/ML VIAL IV PRN ×2 (01:53→07:51)
[2017-06-01] MEDS: Levothyroxine TAB* 125 MCG TAB PO SCH (05:51)
[2017-06-01 07:15] LABS: INR 1.79 (0.77-1.02)
[2017-06-01 08:13] VITALS: BP 106/51
[2017-06-01] MEDS: Lidocaine PATCH 5%* 1 PATCH TRANSDERM SCH (09:09)
[2017-06-01] MEDS ORDERED: Enoxaparin(*) 100 MG/ML SYR SUBCUT ONE (09:18)
[2017-06-01] MEDS: Vancomycin CAP* 125 MG CAP PO SCH (09:50)
[2017-06-01] MEDS: Losartan TAB* 25 MG PO SCH (09:50)
[2017-06-01] MEDS: Cholecalciferol TAB* 1000 UNITS PO SCH (09:51)
[2017-06-01] MEDS: Famotidine TAB* 20 MG PO SCH (09:51)
[2017-06-01] MEDS: Aspirin EC Low Dose* 81 MG TAB.EC PO SCH (09:51)
[2017-06-01] MEDS: Isosorbide Mononitrate ER TAB* 60 MG PO SCH (09:51)
--- NOTE | 2017-06-01 10:07 | DS ---
CC: Nils Strong; Dr. Mckeon * DATE OF ADMISSION: 05/24/17 DATE OF DISCHARGE: 06/01/17 PRIMARY CARE PROVIDER: Dr. Mckeon PRINCIPAL DIAGNOSIS: 1. C.difficile colitis. SECONDARY DIAGNOSES: 1. Chronic back pain. 2. Coronary artery disease. 3. History of DVT - currently, subtherapeutic on warfarin, bridging with Lovenox. 4. Hypertension. 5. Past history of CVA. 6. Diabetes. 7. History of polymyalgia rheumatica. DISCHARGE MEDICATIONS: 1. Coumadin 4 mg po daily - dose likely needs to be adjusted based on subtherapeutic INR at discharge. 2. Oxycodone 10 mg po q 4 hours prn pain. 3. Tums 500 mg po bid prn indigestion. 4. Hydrocortisone cream applied p.r. 4x daily. 5. Famotidine 20 mg po daily. 6. Vitamin D 2000 units po daily. 7. Albuterol RespiClick two puffs inhaled q 4 hours prn shortness of breath. 8. Nitroglycerin 0.4 mg sublingual q 5 minutes prn chest pain. 9. Multivitamin one tablet po daily. 10. Losartan 50 mg po bid. 11. [id number] mcg po daily. 12. Imdur 60 mg po daily. 13. Hydrocortisone suppository 25 mg p.r. q 12 hours prn hemorrhoid. 14. Diclofenac gel apply topically 4x daily prn pain. 15. Topicort 0.5% topical daily. 16. Vitamin B12 1000 mcg IM monthly. 17. Clobetasol ointment apply topically at bedtime. 18. Loprox apply topically bid prn wound care. 19. Calcium plus D one tab po daily. 20. Betamethasone D apply topically twice daily. 21. Aspirin 81 mg po daily. 22. Vancomycin 125 mg po 4x daily x 11 doses. 23. Probiotic one cap po daily. 24. Lidocaine patch one patch topically daily, on for 12 hours, off for 12 hours. 25. Lovenox 90 mg subcu q 12 hours until INR therapeutic. HOSPITAL COURSE: Ms. Garsia is an 87-year-old female who presented to the emergency room with complaints of two days of diarrhea. She was unable to quantify how much stooling she was having per day. The patient was identified to be positive for C.difficile colitis. The patient was started on Vancomycin 125 mg po 4x daily. Today is day No.8 of therapy; the patient has eleven doses left. Due to the profuse diarrhea, the patient developed significant weakness and now is going to be discharged to [facility] for subacute rehab. The patient has been maintained on her usual home medication regimen. Her TSH was checked during this hospitalization and found to be mildly elevated at 6.64. Her Free T4 was also checked and also elevated at 1.32. I question if these may be elevated due to acute illness. A repeat TSH and Free T4 in the next 3-4 weeks would be appropriate, and adjustments can be made at that time. Additionally, the patient has a history of DVTs. She's been on Coumadin [facility]. Her INR was supratherapeutic on admission, and, therefore, her Coumadin dose has been adjusted. Unfortunately, the patient is now subtherapeutic. Her INR is 1.79 on the day of discharge. The patient will continue on 4 mg of Coumadin daily with an INR check on 06/03/17. She should also continue on Lovenox 90 mg subcu twice daily until she is therapeutic. FOLLOW-UP CONCERNS: Patient is being discharged to [facility] today, . ACTIVITY LEVEL: As tolerated. DIET: Regular. CONDITION ON DISCHARGE: Stable. TIME SPENT: Thirty-five minutes were spent discharging this patient. [id number]/[facility] #: [id number] MTDD
== END 2017-06-01 11:50 | DRG 372 ==
LOC: ED 01:18 → MED 05:55 → OBSVTOIN 10:40
PROVIDERS: ADMIT Hospitalist; ATTEND Hospitalist
DX: A04.72 Enterocolitis due to Clostridium difficile, not specified as recurrent (principal); N17.9 Acute kidney failure, unspecified; E11.9 Type 2 diabetes mellitus without complications; I11.9 Hypertensive heart disease without heart failure; I25.10 Atherosclerotic heart disease of native coronary artery without angina pectoris; M19.90 Unspecified osteoarthritis, unspecified site; M35.3 Polymyalgia rheumatica; M54.9 Dorsalgia, unspecified; E03.9 Hypothyroidism, unspecified; R79.1 Abnormal coagulation profile; K21.9 Gastro-esophageal reflux disease without esophagitis; Z86.718 Personal history of other venous thrombosis and embolism; Z86.73 Personal history of transient ischemic attack (TIA), and cerebral infarction without residual deficits; Z79.01 Long term (current) use of anticoagulants; Z79.84 Long term (current) use of oral hypoglycemic drugs; Z79.82 Long term (current) use of aspirin; Z79.899 Other long term (current) drug therapy
CPT/HCPCS: 36415; 74177; 80048; 80053; 80076; 81003; 82150; 82272; 83605; 83630; 83690; 83735; 84439; 84443; 85014; 85018; 85025; 85049; 85610; 85730; 86140; 87040; 87045; 87046; 87493; 87899; 99285; A9270-GY; J0360; J0780; J1170; J1650; J2270; J2405; J3420; Q9967

== ENCOUNTER 2018-01-24 11:06 | Inpatient (IN) | payer MEDICARE ==
[2018-01-24] MEDS ORDERED: Ondansetron INJ* 2 MG/ML VIAL IV ONE (11:55)
[2018-01-24] MEDS ORDERED: Morphine INJ** 4 MG/ML 1 ML CARPUJECT IV ONE (11:55)
--- NOTE | 2018-01-24 12:04 | ED ---
Abdominal Pain/Female - HPI Summary HPI Summary: This pt is an 87 y/o female, accompanied by her daughter Caron, presenting to [facility] c/o left flank pain since today. Pt reports she has hx of diverticulitis but this pain does not feel similar. She rates her left flank pain 8/10 in severity. Additionally she reports nausea. Denies vomiting, chest pain, fever. She has chronic back pain for which she takes 10 mg of oxycodone every 4 hours, and her last dose was today at 11:30. Pt has chronic low back pain that radiates to her left hip. Per daughter Caron, pt was going to have spine surgery and surgeon found "a bubble that was pressing on the spine" which surgeon cleared. While in the ED waiting room, daughter Caron reports pt had urinary incontinence , which she states is new for the pt. Denies hx of kidney stones. PMHx includes pacemaker, cardiac stents, diabetes, left breast CA treated with radiation (no mastectomy). Pt is currently on Warfarin. Pt states she had an appointment at [facility] and was given a cup for urine sample. Pt went home and has brought a urine sample to the ED because she states she has frequent UTI's and often can't produce a sample, so [facility] provides her with urine cups so that she can bring in urine samples. Her PCP is Dr. Mckeon. She last drank Ensure this morning. Home Medications Medication Instructions Recorded Confirmed Type Aspirin EC TAB* [Ecotrin EC Low 81 mg PO DAILY 03/01/12 01/24/18 History Dose 81 MG*] Multivitamins/Minerals TAB* [Thera 1 tab PO DAILY 03/01/12 01/24/18 History M Plus TAB*] Ciclopirox 0.77% GEL (NF)* [Loprox 1 applic TOPICAL BID PRN 05/03/13 01/24/18 History 0.77% GEL (NF)*] Isosorbide Mononitrate ER TAB* 60 mg PO DAILY 09/10/13 01/24/18 History [Imdur ER TAB*] Hydrocortisone 2.5% CREAM(NF) 1 applic DE QID 01/06/15 01/24/18 History Cholecalciferol TAB* [Vitamin D 2,000 units PO DAILY 01/09/16 01/24/18 History TAB*] Clobetasol 0.05% OINT* 1 applic TOPICAL BEDTIME 01/09/16 01/24/18 History Desoximetasone [Topicort] 0.05 % TOPICAL DAILY 01/09/16 01/24/18 History Diclofenac 1% GEL (NF) [Voltaren 1 applic TOPICAL QID PRN 01/09/16 01/24/18 History 1% GEL (NF)] Levothyroxine TAB* [Synthroid 125 125 mcg PO QAM 01/09/16 01/24/18 History MCG TAB*] Losartan TAB* [Cozaar TAB*] 50 mg PO BID 01/09/16 01/24/18 History Nitroglycerin TAB 0.4 MG* 0.4 mg SL Q5M PRN 01/09/16 01/24/18 History Albuterol inh POWDER (NF) [Proair 2 puff INH Q4HR PRN 02/22/17 01/24/18 History Respiclick] Betamethasone Dipropionate 0.05 % TOPICAL BID 02/22/17 01/24/18 History [Betamethasone Diprop Augmented] Cyanocobalamin INJ * [Vitamin B12 1,000 mcg IM MONTHLY 02/22/17 01/24/18 History INJ *] Hydrocortisone SUPP* [Anusol Hc 25 mg DE Q12HR PRN 02/22/17 01/24/18 History Supp*] oxyCODONE TAB* [Roxycodone TAB 5 10 mg PO Q4H PRN 05/24/17 01/24/18 History mg*] L. Acidophilus/Bifid. Animalis 1 cap PO DAILY #30 cap 06/01/17 01/24/18 Rx [Probiotic 5 Billion Cell Cap] Benzonatate CAP* [Tessalon 100 MG 100 mg PO TID PRN 01/24/18 01/24/18 History CAP*] Docusate CAP* [Colace Cap*] 100 mg PO BID 01/24/18 01/24/18 History Loperamide HCl [Imodium A-D] 2 mg PO BID PRN 01/24/18 01/24/18 History Polyethylene Glycol 3350* 17 gm PO DAILY 01/24/18 01/24/18 History [Miralax*] Warfarin TAB(*) [Coumadin TAB(*)] 3 mg PO SUMOWEFR 01/24/18 01/24/18 History Warfarin TAB(*) [Coumadin TAB(*)] 4.5 mg PO TUTHSA 01/24/18 01/24/18 History - History of Current Complaint Chief Complaint: EDFlankPain Stated Complaint: BACK PAIN/LT FLANK PAIN Hx Obtained From: Patient, Family/Fiber Analyst - daughters Lv Onset/Duration: Lasting Days - 1, Still Present Timing: Constant Severity Initially: Moderate Severity Currently: Severe Pain Intensity: 10 Pain Scale Used: 0-10 Numeric Location: Flank - left Radiates: No Character: Sharp Aggravating Factor(s): Nothing Alleviating Factor(s): Nothing Associated Signs and Symptoms: Positive: Back Pain, Nausea, Other: - urinary incontinence. Negative: Fever, Chest Pain, Vomiting Allergies/Adverse Reactions: Allergies Allergy/AdvReac Type Severity Reaction Status Date / Time acetaminophen [From Ultracet] Allergy Severe Swelling Verified 01/26/18 10:16 Penicillins Allergy Severe Hives Verified 01/26/18 10:16 sulfamethoxazole Allergy Severe Hives Verified 01/26/18 10:16 [From Septra] tramadol [From Ultracet] Allergy Severe Swelling Verified 01/26/18 10:16 trimethoprim [From Septra] Allergy Severe Hives Verified 01/26/18 10:16 gabapentin Allergy Unknown Verified 01/24/18 11:15 Reaction Details loratadine [From Claritin] Allergy See Comment Verified 01/24/18 11:15 aspartame AdvReac Intermediate Diarrhea Verified 01/26/18 10:13 codeine AdvReac Intermediate Hallucinati Verified 01/26/18 10:13 ons fentanyl AdvReac Intermediate GI Upset Verified 01/26/18 10:13 morphine AdvReac Intermediate Nausea Verified 01/26/18 10:13 Home Medications: Home Medications Benzonatate CAP* [Tessalon 100 MG CAP*] 100 mg PO TID PRN 01/24/18 [History Confirmed 01/24/18] Docusate CAP* [Colace Cap*] 100 mg PO BID 01/24/18 [History Confirmed 01/24/18] Loperamide HCl [Imodium A-D] 2 mg PO BID PRN 01/24/18 [History Confirmed ] Polyethylene Glycol 3350* [Miralax*] 17 gm PO DAILY 01/24/18 [History Confirmed 01/24/18] PMH/Surg Hx/FS Hx/Imm Hx Previously Healthy: No Endocrine/Hematology History: Reports: Hx Anticoagulant Therapy, Hx Diabetes, Hx Thyroid Disease, Hx Anemia Cardiovascular History: Reports: Hx Angina, Hx Cardiac Arrest, Hx Congestive Heart Failure, Hx Coronary Artery Disease, Hx Deep Vein Thrombosis, Hx Embolism , Hx Hypercholesterolemia, Hx Hypertension, Hx Myocardial Infarction, Hx Pacemaker/ICD - 9/11/22 Denies: Hx Valvular Heart Disease Respiratory History: Reports: Hx Asthma, Hx Chronic Bronchitis, Hx Chronic Obstructive Pulmonary Disease (COPD), Hx Pneumonia, Hx Seasonal Allergies GI History: Reports: Hx Diverticulosis, Hx Gastroesophageal Reflux Disease, Hx Hiatal Hernia, Other GI Disorders - Colitis/Diverticulitis History: Reports: Other Problems/Disorders - frequent UTI's Denies: Hx Renal Disease Musculoskeletal History: Reports: Hx Arthritis, Hx Back Problems, Hx Osteoporosis Sensory History: Reports: Hx Cataracts - Removed 1995, Hx Contacts or Glasses, Hx Vision Problem, Hx Deafness, Hx Hearing Aid, Hx Hearing Problem Opthamlomology History: Reports: Hx Cataracts - Removed 1995, Hx Contacts or Glasses, Hx Vision Problem Neurological History: Reports: Other Neuro Impairments/Disorders - spinal stenosis Psychiatric History: Reports: Hx Depression Denies: Hx Panic Disorder, Hx Substance Abuse - Cancer History Cancer Type, Location and Year: Left breast cancer, 2003. treated with radiation. Hx Chemotherapy: No Hx Radiation Therapy: Yes - Surgical History Surgery Procedure, Year, and Place: Tonsillectomy. Appendectomy. Ovarian cyst surgery 1969. Hysterectomy 1979. Bilateral cataract surgery,. Colon polyp removal 2001. Left breast partial mastectomy 2003. Urethral dilation May 2004. 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 - Social History Alcohol Use: None Hx Substance Use: No Substance Use Type: Reports: Prescribed Smoking Status (MU): Never Smoked Tobacco Have You Smoked in the Last Year: No Review of Systems Negative: Fever Negative: Chest Pain Respiratory: Negative Positive: Nausea. Negative: Vomiting Positive: flank pain - left, incontinence - urinary Musculoskeletal: Other - chronic back pain Skin: Negative Neurological: Negative Psychological: Normal All Other Systems Reviewed And Are Negative: Yes Physical Exam - Summary Physical Exam Summary: Appearance: Well-appearing, moderate pain distress, well-nourished Skin: Warm, dry. Redness under left breast. 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 Head: Normal Head/Face inspection, atraumatic Eyes: Conjunctiva clear ENT: Normal inspection Neck: Supple, no nodes, no JVD Respiratory: Lungs clear, normal breath sounds, no respiratory distress Cardio: RRR, No murmur, pulses normal, brisk capillary refill Abdomen: Soft. LUQ tenderness. Left flank tenderness. Bilateral femoral pulses are intact. Umbilical hernia that reduces easily. Bowel sounds: Present. Pt has soft brown stool and yellow urine, seen in commode. Musculoskeletal: Strength Intact/ROM intact, no calf tenderness, no edema. Tenderness in the lumbar spine. Psychological: Normal Neuro: Alert, muscle tone normal, no focal deficit Triage Information Reviewed: Yes Vital Signs On Initial Exam: Initial Vitals Temp Pulse Resp BP Pulse Ox 98.1 F 92 20 138/111 95 01/24/18 11:08 01/24/18 11:08 01/24/18 11:08 01/24/18 11:08 01/24/18 11:08 Vital Signs Reviewed: Yes Diagnostics - Vital Signs Vital Signs Temp Pulse Resp BP Pulse Ox 01/24/18 11:08 98.1 F 92 20 138/111 95 - Laboratory Result Diagrams: 01/27/18 06:33 01/27/18 06:33 Lab Statement: Any lab studies that have been ordered have been reviewed, and results considered in the medical decision making process. - Radiology Chest XR Xray Interpretation: Positive (See Comments) - IMPRESSION: Stigmata of obstructive lung disease. Cardiomegaly. Negative for pulmonary edema. Tortous descending thoracic aorta with interval worsening. In setting of back pain consider CT angiogram to assess for aneurysm or dissection of the thoracic aorta. Dr. Morataya has reviewed this report. Radiology Interpretation Completed By: Radiologist - CT CTA Chest/Abd/Pelvis CT Interpretation: Positive (See Comments) - IMPRESSION: 1. No aortic aneurysm or intimal flap to suggest dissection. No periaortic hematoma. 2. No pulmonary arterial filling defect to suggest pulmonary embolism. 3. Ectasia of the infrarenal abdominal aorta. 4. Atherosclerosis. 5. 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 6. Diverticulitis without loculated fluid collection to suggest abscess. Dr. Morataya has reviewed this report. CT Interpretation Completed By: Radiologist - EKG 12:01 Cardiac Rate: NL - at 79 bpm EKG Rhythm: Atrial Fibrillation EKG Interpretation: ST depressions and T waves inversion in leads V2-V6. EKG Comparison: Other - changed from prior EKG on 02/22/17. 14:51 Cardiac Rate: NL - at 63 bpm EKG Rhythm: Atrial Fibrillation EKG Interpretation: Nml IV CT. Nml QTc. ST -T wave changed in V2-V6, less pronounced. EKG Comparison: Other - improved compared to prior today at 12:01. Re-Evaluation - Re-Evaluation First Eval Re-Evaluation Time: 14:38 Change: Unchanged Comment: I reviewed the chest XR results with the pt and daughter. BP is 157/72 , HR is 80, O2 sat is 94. Second Eval Re-Evaluation Time: 15:02 Change: Unchanged Comment: Pt is currently on commode. She has urinary incontinence, which she states is new. BP is 173/82, HR is 77 bpm. Third Eval Re-Evaluation Time: 16:30 Change: Unchanged Comment: discussed CT findings with both daughters. Mary Greta present with pt. Pt up to commode again. Abdominal Pain Fem Course/Dx - Course Course Of Treatment: Pt medications reviewed this visist. Allergies noted. Elevated blood pressure noted. Pt is an 87 y/o female presenting to the ED for left flank pain. I spoke with Roque from CT at 14:31 and states GRF cutoff is 30 and pt can have IV contrast. At 14:[address] to CTA of the aorta as suggested on chest XR reading from Dr. Herron. Pt cannot have MRI because of her pacemaker, [employer]. Pacemaker ID card placed with pt's chart. CTA shows no aortic aneurysm or intimal flap to suggest dissection. Labs show two negative troponins. I discussed pt care with Dr. Paige, hospitalist, who accepted the pt for admission for further evaluation and treatment of her diverticulitis, pain and urinary incontinence. - Diagnoses Provider Diagnoses: Elevated blood pressure reading with diagnosis of hypertension, Diverticulitis , Urinary incontinence - Provider Notifications Discussed Care Of Patient With: Roopa Paige - hospitalist Time Discussed With Above Provider: 16:05 Instructed by Provider To: Admit As Inpatient - Critical Care Time Critical Care Time: 30-74 min - 30 minutes Discharge - Sign-Out/Discharge Documenting (check all that apply): Patient Departure - Admit to [facility] All imaging exams completed and their final reports reviewed: Yes - Discharge Plan Condition: Stable Disposition: ADMITTED TO [facility] - Billing Disposition and Condition Condition: STABLE Disposition: Admitted to [facility] - Attestation Statements Document Initiated by Yulia: Yes Documenting Scribe: Michelle Dao Provider For Whom Yulia is Documenting (Include Credential): Dr. Janette Morataya MD Scribe Attestation: Michelle Paz scribed for Dr. Janette Morataya MD on 01/31/18 at 1804. Scribe Documentation Reviewed: Yes Provider Attestation: The documentation as recorded by the Michelle redd accurately reflects the service I personally performed and the decisions made by me, Dr. Janette Morataya MD
[2018-01-24 12:27] LABS: Urine Appearance Clear; Urine Blood Negative (Negative); Urine Color Yellow; Urine Ketones Negative (Negative); Urine Protein Negative (Negative); Urine Specific Gravity 1.009 (1.010-1.030); Urine Urobilinogen Negative (Negative)
[2018-01-24] MEDS ORDERED: Morphine INJ* 2 MG/ML 1 ML SYRINGE (TWO MG - NEW SYRINGE VERSION) ONE (12:29)
[2018-01-24] MEDS ORDERED: HYDROmorphone INJ* 1 MG/ML CARPUJECT SYRINGE IV SLOW PU ONE (12:45)
[2018-01-24 12:55] LABS: ABS Basophils 0.1 10^3/ul (0-0.2); ABS Eosinophils 0.1 10^3/ul (0-0.6); ABS Lymphocytes 0.8 10^3/ul (1.0-4.8); ABS Monocytes 0.5 10^3/ul (0-0.8); ABS Neutrophils 5.4 10^3/ul (1.5-7.7); ABS Nucleated RBC 0 10^3/ul; Hematocrit 38 % (35-47); Hemoglobin 12.8 g/dl (12.0-16.0); Lymphocyte % 11.6 % (25-47); Mean Corpuscular HGB Conc 33 g/dl (31-36); Mean Corpuscular Hemoglobin 31 pg (27-31); Mean Corpuscular Volume 93 fL (80-97); Mean Platelet Volume 8.9 um3 (7.4-10.4); Nucleated Red Blood Cells % 0; Platelet Count 199 10^3/ul (150-450); Red Blood Count 4.11 10^6/ul (4.00-5.40); Red Cell Distribution Width 14 % (10.5-15); White Blood Count 6.8 10^3/ul (3.5-10.8)
--- NOTE | 2018-01-24 13:06 | RAD ---
INDICATION: LEFT back/flank pain. COMPARISON: May 24, 2017 CT abdomen and January 16, 2016 chest radiograph. TECHNIQUE: Sitting AP and lateral chest views. REPORT: Elevated lung volumes and both diffuse mild prominence of the interstitial markings and patchy rarefaction of the mid to upper lung zone interstitial markings. No focal pulmonary lesion, compelling alveolar consolidation, pleural effusion, pneumothorax. RIGHT atrial and RIGHT ventricular level pacemaker leads. Cardiomegaly. Unremarkable central pulmonary vasculature. Tortuous descending thoracic aorta increased over the prior exam. Unchanged finding of osteoporotic compression fracture at the approximate T9 vertebral body. No new thoracic fractures evident. Diffuse thoracic degenerative spondylosis. IMPRESSION: #. Stigmata of obstructive lung disease. #. Cardiomegaly. Negative for pulmonary edema. #. Tortuous descending thoracic aorta with interval worsening. In setting of back pain consider CT angiogram to assess for aneurysm or dissection of the thoracic aorta.
[2018-01-24] MEDS ORDERED: HYDROmorphone INJ1* 1 MG/ML SYRINGE IV SLOW PU ONE (14:00)
[2018-01-24] MEDS ORDERED: Iodixanol* (CONTRAST) 320 MG/ML 100 ML SDV IV ONE (14:53)
--- NOTE | 2018-01-24 15:49 | RAD ---
HISTORY: left flank pain COMPARISONS: April 07, 2014, May 24, 2017 TECHNIQUE: Multiple contiguous axial CT scans were obtained of the chest, abdomen, and pelvis after the administration of intravenous contrast. Coronal and sagittal multiplanar reformations are submitted for review.. Oral contrast was not administered. 3-D volumetric reconstructions of the aorta are also submitted for review FINDINGS: CHEST NECK AND THYROID: The thyroid gland is not visualized. CHEST WALL: There is no lower cervical, axillary, or supraclavicular lymphadenopathy by size criteria. A right-sided pacemaker is noted. HEART AND PERICARDIUM: Coronary stents are noted. AORTA AND PULMONARY VASCULATURE: There is atherosclerosis of the thoracic aorta. The aorta is tortuous without aneurysmal dilatation or intimal flap. There is no pulmonary arterial filling defect to suggest pulmonary embolism. MEDIASTINUM: There is no mediastinal lymphadenopathy by size criteria. CINTHYA: There is no hilar lymphadenopathy by size criteria. AIRWAY AND ESOPHAGUS: The airway is unremarkable, without endobronchial filling defect. The esophagus is grossly normal. LUNG PARENCHYMA: The lungs are clear. PLEURA: No pleural abnormalities are noted. BONES AND SOFT TISSUES: There is a scoliotic curvature of the spine. Degenerative changes are noted. ABDOMEN/PELVIS: LIVER: The liver is normal in shape, size, contour, and attenuation. BILE DUCTS: There is no intrahepatic or extrahepatic biliary dilatation. GALLBLADDER: The gallbladder is normal, without pericholecystic inflammatory change. PANCREAS: There is fatty atrophy of the pancreas. SPLEEN: Normal in size and appearance. UPPER GI TRACT: Evaluation of the gastrointestinal tract is limited by incomplete gastric distention. The upper GI tract is unremarkable. SMALL BOWEL & MESENTERY: The small bowel is normal in contour, course, and caliber. There is no obstruction or dilatation. COLON: There are multiple diverticula of the distal colon. There is a small amount of fluid tracking along the sigmoid mesentery best seen on axial image 25.. ADRENALS: Normal bilaterally. KIDNEYS: There is renal cortical parenchymal thinning. There is no hydronephrosis or nephrolithiasis. BLADDER: The bladder is smooth in contour. PELVIC ORGANS: The pelvic organs are not visualized. AORTA: There is atherosclerosis of the abdominal aorta with mild ectasia. The aorta is tortuous. This is similar to the previous examination. There is ostial stenosis of the renal arteries bilaterally. IVC: Unremarkable LYMPH NODES: There is no lymphadenopathy by size criteria. ABDOMINAL WALL: There is a fat-containing abdominal hernia. BONES AND SOFT TISSUES: There is a scoliotic curvature of the spine. Degenerative changes are noted. There is diffuse osteopenia. OTHER: None IMPRESSION: 1. NO AORTIC ANEURYSM OR INTIMAL FLAP TO SUGGEST DISSECTION. NO PERIAORTIC HEMATOMA. 2. NO PULMONARY ARTERIAL FILLING DEFECT TO SUGGEST PULMONARY EMBOLISM. 3. ECTASIA OF THE INFRARENAL ABDOMINAL AORTA. 4. ATHEROSCLEROSIS. 5. 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 6. DIVERTICULITIS WITHOUT LOCULATED FLUID COLLECTION TO SUGGEST ABSCESS.
[2018-01-24] MEDS ORDERED: Levofloxacin 750 MG IVPREMIX(* 750 MG/150 ML BAG IVPB ONE (16:02)
[2018-01-24] MEDS ORDERED: metroNIDAZOLE IV 500 MG/100ML* 500 MG/100 ML BAG IVPB ONE (16:03)
[2018-01-24 16:49] LABS: INR 2.68 (0.77-1.02)
[2018-01-24] MEDS ORDERED: HYDROmorphone INJ* 0.5 MG/0.5 ML SYRINGE IV SLOW PU PRN (17:13)
[2018-01-24] MEDS: metroNIDAZOLE IV 500 MG/100ML* 500 MG/100 ML BAG IVPB SCH (17:19)
[2018-01-24] MEDS ORDERED: Dextrose 50% Syringe 50 ML* 25 GM/50 ML SYRINGE IV PUSH PRN (17:49)
[2018-01-24] MEDS ORDERED: Hydrocortisone SUPP* 25 MG SUPP (2.5%) PR PRN (17:50)
[2018-01-24] MEDS ORDERED: Albuterol HFA INHALER* 8 gm MDI INH PRN (18:06)
[2018-01-24] MEDS ORDERED: Warfarin TAB(*) 3 MG PO ONE (19:00)
[2018-01-24] MEDS: HYDROmorphone INJ1* 1 MG/ML SYRINGE IV SLOW PU PRN (19:10)
--- NOTE | 2018-01-24 22:08 | HP ---
CC: Jean Tan MD; Nam Mckeon MD * HISTORY AND PHYSICAL: DATE OF ADMISSION: 01/24/18 PRIMARY CARE PROVIDER: Nam Mckeon MD PRIMARY ENGLISH INSTRUCTOR: Jean Tan MD ATTENDING PHYSICIAN: Alissa Carl DO * (dictated by Mary Rodrigues NP) CHIEF COMPLAINT: Abdominal pain and urinary incontinence. HISTORY OF PRESENT ILLNESS: Ms. Chan is an 87-year-old female with past medical history significant for chronic back pain secondary to osteoarthritis, coronary artery disease status post 4 cardiac stents per the patient, recurrent DVTs, hypertension, breast cancer, status post lumpectomy, history of CVA with residual left-sided weakness, diabetes mellitus, polymyalgias rheumatica and recurrent diverticulitis, who states that intermittently over the last few months she has been having a significant amount of left-sided abdominal pain. She states that she feels this is different than when she has had diverticulitis in the past as that is typically in her left lower abdomen and this pain has been more in her left middle and upper abdomen. She notes that when she is having this discomfort and she places an abdominal binder in place that this relieves her pain but then exacerbates her back pain. She also reports a newly developed urinary incontinence over the last 4 to 5 days in addition to urinary urgency. She denies any fevers, has been feeling chills since at the hospital. She also reports having " hot flashes" that are worse in the mornings. She typically has hot flashes but feels that they are worse than her normal. She denies any recent injuries or motor vehicle accidents to have worsened her back pain. She has no changes in her back pain. At baseline , she has numbness in her left knee and a slight left lower extremity weakness due to history of a CVA. She feels as though her abdominal pain is secondary to her abdominal hernia. The patient reports that she was supposed to have a cardiac stress test but has not had that done over the last year as it was too difficult for her to ride in the car and get to the appointment. She denies nausea, vomiting, shortness of breath, or chest pain. She states she is able to ambulate around with her walker and has no issues outside of her baseline. She presented to the emergency room for further evaluation of her symptoms. While in the emergency room, the patient had an EKG showing diffuse ST depression and T wave inversions. She had labs showing a troponin of 0.02 x2. There is slightly elevated ESR at 48, INR 2.68. She is chronically anticoagulated for recurrent DVTs. She has elevated BUN and creatinine that appear to be near her baseline, stage 3 chronic kidney disease. She had a CTA of her chest, abdomen and pelvis, "showing no aortic aneurysm or intimal flap to suggest dissection. No pulmonary arterial filling defect to suggest pulmonary embolus. Ectasia of the infrarenal abdominal aorta. Atherosclerosis , diverticulitis without loculated fluid collection to suggest abscess". She had a chest x-ray showing "stigmata of obstructive lung disease, cardiomegaly. Tortuous descending thoracic aorta with interval worsening". The patient had a repeat EKG showing slight improvement in the ST depression and T wave inversions. She reports having loose stools today after PO contrast and apple juice. The hospitalists were asked to evaluate the patient for admission. PAST MEDICAL HISTORY: 1. Chronic back pain secondary to osteoarthritis. 2. Coronary artery disease status post stenting. 3. Recurrent DVTs. 4. Hypertension. 5. Breast cancer. 6. Cerebrovascular accident with residual left-sided weakness. 7. Diabetes mellitus. 8. Polymyalgia rheumatica. 9. Diverticulitis. 10. 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 PAST SURGICAL HISTORY: 1. Status post cardiac stents x4, LAD and RCA, last in 2012 status post lumpectomy. 2. Status post spinal procedure "the patient states they popped an air bubble. " 3. Status post appendectomy. 4. Status post hysterectomy. 5. Status post pacemaker. HOME MEDICATIONS: Include: 1. Oxycodone 10 mg oral every 4 hours as needed for pain. 2. Warfarin 3 mg daily on Wednesday, Wednesday, Wednesday, Wednesday; 4.5 mg on Wednesday , , Wednesday. 3. MiraLAX 17 g oral daily. 4. Probiotic 1 capsule oral daily. 5. Nitroglycerin 0.4 mg sublingual every 5 minutes as needed for chest pain. 6. Hydrocortisone suppository 25 mg p.r. every 12 hours as needed for hemorrhoids. 7. Multivitamin 1 tablet oral daily. 8. Losartan 50 mg oral twice daily. 9. Levothyroxine 125 mcg oral daily. 10. Isosorbide mononitrate 60 mg oral daily. 11. Imodium A-D 2 mg oral twice daily as needed for loose stools. 12. Hydrocortisone 2.5% apply topical per rectum 4 times daily. 13. Colace 100 mg oral twice daily. 14. Diclofenac 1% gel apply topical 4 times daily as needed for pain. 15. Topicort 0.05% topical daily. 16. Vitamin B12 of 1000 mcg intramuscularly monthly. 17. Clobetasol 0.05% apply topical at bedtime. 18. Loprox 0.77% gel apply topical twice daily as needed for rash. 19. Vitamin D 2000 units oral daily. 20. Tessalon 100 mg oral 3 times daily as needed for cough. 21. Betamethasone 0.05% topical twice daily. 22. Aspirin 81 mg oral daily. 23. Albuterol inhaler 2 puffs inhalation every 4 hours as needed for shortness of breath or wheeze. ALLERGIES: ULTRACET, ASPARTAME, CODEINE, FENTANYL, GABAPENTIN, CLARITIN, MORPHINE, PENICILLIN, etc. FAMILY HISTORY: The patient's mother had a history of breast cancer and CHF. Brother with a history of ND at age 65. Sister with ND at 95. Same sister with history of pancreatic cancer. A sister with the history of breast cancer at 52. Father with the history of bladder or prostate cancer. Two daughters with the history of breast cancer. Siblings and mother with the history of diabetes. She believes her sisters have a history of coronary artery disease. SOCIAL HISTORY: The patient denies tobacco, alcohol, recreational drug use. Her daughter, Dipti Tapia and daughter Gisell Tavarez will be her surrogate decision makers in the event she is unable to make decisions for herself. REVIEW OF SYSTEMS: I performed an 11-point review of systems. All the pertinent positives and negatives are mentioned in history of present illness. The remaining review of systems are negative. PHYSICAL EXAMINATION GENERAL APPEARANCE: The patient is alert, pleasant, appears to be in no acute distress. VITAL SIGNS: Temperature 98.1, heart rate 83, respiratory rate 20, O2 sat 91% on room air, blood pressure 172/82. HEENT: Normocephalic, atraumatic. Pupils are equal and reactive to light. Extraocular movements are intact. RESPIRATORY: There is no accessory muscle use. Lungs are clear to auscultation bilaterally. CARDIOVASCULAR: Regular rate and rhythm. S1 and S2 present. There are no murmurs, rubs or gallops heard. ABDOMEN: Soft, large, tender in the left middle quadrant. There are bowel sounds present x4. She does have a reducible umbilical hernia. EXTREMITIES: There is no lower extremity edema. DP and PT pulses are 1+ and symmetric. MUSCULOSKELETAL: There is no clubbing or cyanosis noted. The patient exhibits good strength in all extremities, although she does have a slight left lower extremity weakness. NEUROLOGICAL: Alert and oriented x4. Cranial nerves II through XII are grossly intact. PSYCHOLOGICAL: The patient is calm and cooperative. SKIN: The patient has a psoriasis rash to her lower back. No signs of an underlying skin infection. DIAGNOSTIC STUDIES/LAB DATA: Sodium 135, potassium 4.4, chloride 100, CO2 of 29, BUN 27, creatinine 1.29, glucose 128. White blood cell count 6.8, hemoglobin 12.8, hematocrit 38, platelet count 199,000. Troponin 0.02 x2. Lactic acid 2.0, repeat 1.8. EKG at 12:[address] depressions and T wave inversions diffuse. Repeat EKG at [address] depressions, T-wave inversions. When compared to previous EKG from 02/22/17, the patient then had ST depression in V2 to V5. CTA chest, abdomen and pelvis from today, radiologist's impression: No aortic aneurysm or intimal flap to suggest dissection. No periaortic hematoma. No pulmonary arterial filling defect to suggest pulmonary embolus. Ectasia of the infrarenal abdominal aorta. Atherosclerosis. Ostial stenosis of the renal arteries bilateral. Diverticulitis without loculated fluid collection to suggest abscess. Chest x-ray from today. Radiologist impression: Stigmata of obstructive lung disease. Cardiomegaly. Negative for pulmonary edema. Tortuous descending thoracic aorta with interval worsening. In the setting of back pain, consider CT angio to assess the aneurysm or dissection of the thoracic aorta. IMPRESSION: Ms. Chan is an 87-year-old female with past medical history significant for chronic back pain, coronary artery disease, recurrent deep venous thromboses, hypertension, breast cancer status post lumpectomy, history of cerebrovascular accident with left-sided weakness, diabetes mellitus, polymyalgia rheumatica, diverticulitis, third degree heart block status post pacemaker, who presented to the emergency room with complaints of abdominal pain and urinary incontinence. She will be admitted as an observation for diverticulitis and abnormal EKGs. ASSESSMENT/PLAN: 1. Diverticulitis. I suspect this may be the cause of the patient's abdominal pain. She has evidence of diverticulitis on her abdomen and pelvis CTA. We will place her on Cipro and Flagyl with IV fluids. She will have pain medication. If the patient is not improving in the morning, I will discuss the case with General Surgery to see if they think that the patient's umbilical hernia is contributing to her abdominal pain. At this time, with her EKG changes, she is not a good surgical candidate. 2. Diffuse EKG changes. Unclear etiology at this time. It appears the patient intermittently has diffuse ST depression and T-wave inversion. She was supposed to have a cardiac stress test over this past year. This was not completed as she was unable to make it to the stress test appointment. I will see how she is doing tomorrow. I will do 1 more troponin. At this time, she does not have elevated troponins and will consider getting a stress test while she is here. We will also consider discussing the case with Cardiology tomorrow. 3. Recurrent deep venous thromboses. The patient will be continued on warfarin. We will monitor her INR and adjust her dosing accordingly. 4. Chronic kidney disease. The patient appears to be at her baseline stage 3. 5. Coronary artery disease. The patient is status post 4 cardiac stents. She is not currently on a beta-toby. It is unclear why this may be secondary to her history of third degree heart block. We will continue her on her aspirin. She is additionally not on a statin at this time as she has a history of statin intolerance. 6. Hypertension. The patient has been hypertensive in the emergency room. We will continue her on her home losartan. She may need further blood pressure medication adjustments if she continues to be hypertensive. 7. Hypothyroidism. The patient will be continued on her home levothyroxine. 8. Diabetes mellitus. Her hemoglobin A1c was 6.6 in June of this year. We will place her on glucose checks in the morning and at bedtime and lispro sliding scale. She is diet controlled at home. 9. Psoriasis. We will continue the patient on her home creams. 10. Fluids, electrolytes and nutrition: Clear liquid diet. 11. Code status. Full code. 12. DVT prophylaxis: She is at highest risk and will be continued her on warfarin. 13. Disposition. Observation. TIME SPENT: Time for this admission was approximately 60 minutes, greater than half of that was spent with the patient and her daughter discussing medications , past medical history, and the events leading up to her arrival today, performing a physical examination. The case has been reviewed with the attending, Dr. Carl, who agrees with the plan of care. Reviewed by MAX LORENZO 01/26/18 1451 [id number]/[facility] #: [id number] CHANEL
[2018-01-24] MEDS: Losartan TAB* 25 MG PO SCH (22:23)
[2018-01-24] MEDS: Ciprofloxacin 400MG IVPREMIX(* 400 MG/200 ML BAG IVPB SCH (22:24)
[2018-01-25] MEDS: HYDROmorphone INJ1* 1 MG/ML SYRINGE IV SLOW PU PRN ×4 (01:29→13:49)
[2018-01-25] MEDS: metroNIDAZOLE IV 500 MG/100ML* 500 MG/100 ML BAG IVPB SCH ×4 (02:38→17:53)
[2018-01-25] MEDS: Levothyroxine TAB* 125 MCG TAB PO SCH (05:41)
[2018-01-25 06:42] LABS: ABS Basophils 0.1 10^3/ul (0-0.2); ABS Eosinophils 0.2 10^3/ul (0-0.6); ABS Lymphocytes 1.1 10^3/ul (1.0-4.8); ABS Monocytes 0.5 10^3/ul (0-0.8); ABS Neutrophils 3.7 10^3/ul (1.5-7.7); ABS Nucleated RBC 0 10^3/ul; Eosinophil % 3.4 % (0-6); Hematocrit 36 % (35-47); Hemoglobin 12.1 g/dl (12.0-16.0); Lymphocyte % 19.3 % (25-47); Mean Corpuscular HGB Conc 34 g/dl (31-36); Mean Corpuscular Hemoglobin 31 pg (27-31); Mean Corpuscular Volume 91 fL (80-97); Mean Platelet Volume 8.5 um3 (7.4-10.4); Nucleated Red Blood Cells % 0; Platelet Count 180 10^3/ul (150-450); Red Blood Count 3.92 10^6/ul (4.00-5.40); Red Cell Distribution Width 14 % (10.5-15); White Blood Count 5.5 10^3/ul (3.5-10.8)
[2018-01-25 06:49] LABS: INR 3.07 (0.77-1.02)
[2018-01-25 07:08] LABS: EGFR Non-African American 46.4 (>60)
[2018-01-25] MEDS: Insulin LISPRO* 1 UNITS UNIT SUBCUT SCH ×3 (07:38→16:49)
[2018-01-25] MEDS: Triamcinolone 0.5% OINT * 15 GM TUBE TOPICAL SCH (08:04)
[2018-01-25] MEDS: Losartan TAB* 25 MG PO SCH ×2 (08:04→20:06)
[2018-01-25] MEDS: Isosorbide Mononitrate ER TAB* 60 MG PO SCH (08:04)
[2018-01-25] MEDS: Aspirin EC TAB* 81 MG TAB.EC PO SCH (08:04)
--- NOTE | 2018-01-25 10:32 | PN ---
Subjective Date of Service: 01/25/18 Interval History: Patient seen and examined at bedside. Denies fever, chills, shortness of breath , chest discomfort, N/V. Pt states that she has had a lot of acid reflux this AM. She states that her abdominal pain has moved from her left side up to her left lower rib cage. She also states that her pain improved after moving her bowels this morning. She states that she continues to have loose stools. She states that this pain is different than her typical diverticulitis pain. She reports that left upper abdominal discomfort is "like my insides are ripping apart". Tele: Intermittent paced, rate 60's Family History: Unchanged from Admission Social History: Unchanged from Admission Past Medical History: Unchanged from Admission Objective Active Medications: Albuterol (Ventolin Hfa Inhaler*) 2 puff INH Q6H PRN Reason: SOB/WHEEZING Aspirin (Aspirin Ec Tab*) 81 mg PO DAILY JEAN MARIE Dextrose (D50w Syringe 50 Ml*) 12.5 gm IV PUSH .FOR FS < 60 - SS PRN Reason: FS < 60 Hydrocortisone (Anusol Hc Supp*) 25 mg ND Q12HR PRN Reason: PAIN Hydromorphone HCl (Dilaudid Inj1s*) 0.5 mg IV SLOW PU Q4H PRN Reason: PAIN Lactated Ringer's (Lactated Ringers 1000 Ml Bag*) 1,000 mls @ 125 mls/hr IV PER RATE [facility] Metronidazole/Sodium Chloride (Flagyl 500 Mg Ivpb*) 500 mg in 100 mls @ 100 mls /hr IVPB Q6H JEAN MARIE Ciprofloxacin/Dextrose (Cipro 400 Mg Ivpremix(*)) 400 mg in 200 mls @ 200 mls/ hr IVPB Q24H [facility] Insulin Human Lispro (Humalog*) 0 - 5 units SUBCUT AC JEAN MARIE; Protocol Isosorbide Mononitrate (Imdur Er Tab*) 60 mg PO DAILY JEAN MARIE Levothyroxine Sodium (Synthroid Tab*) 125 mcg PO 0600 JEAN MARIE Losartan Potassium (Cozaar Tab*) 50 mg PO BID JEAN MARIE Ondansetron HCl (Zofran Inj*) 4 mg IV Q6H PRN Reason: NAUSEA Pharmacy Profile Note (Coumadin Per Pharmacy*) 1 note FOLLOW UP .PER PHARMACY PROTOC [facility]; Protocol Triamcinolone Acetonide (Triamcinolone 0.5% Oint *) 1 applic TOPICAL DAILY JEAN MARIE Vital Signs - 8 hr 01/25/18 01/25/18 01/25/18 02:43 03:51 05:41 Temperature 97.9 F Pulse Rate 67 Respiratory 18 20 18 Rate Blood Pressure 149/54 (mmHg) O2 Sat by Pulse 92 Oximetry 01/25/18 01/25/18 01/25/18 06:45 07:28 07:49 Temperature 97.8 F Pulse Rate 136 Respiratory 18 24 18 Rate Blood Pressure 154/68 (mmHg) O2 Sat by Pulse 94 Oximetry 01/25/18 01/25/18 07:56 09:43 Temperature Pulse Rate 61 Respiratory 24 Rate Blood Pressure (mmHg) O2 Sat by Pulse Oximetry Oxygen Devices in Use Now: None Appearance: NAD, laying in bed Ears/Nose/Mouth/Throat: Mucous Membranes Moist Respiratory: Symmetrical Chest Expansion and Respiratory Effort, Clear to Auscultation Cardiovascular: NL Sounds; No Murmurs; No JVD, RRR, - - Reproducible pain with palpation to left lower chest Abdominal: - - Bowel sounds present, Abdomen soft and large. Tenderness to the left upper quadrant Skin: - - Psoriasis rash to lower back, left lateral side/under left breast Neurological: Alert and Oriented x 3, NL Muscle Strength and Tone Lines/Tubes/Other Access: Clean, Dry and Intact Peripheral IV - site benign Nutrition: Taking PO's Result Diagrams: 01/25/18 06:33 01/25/18 06:33 Microbiology and Other Data: Microbiology 01/24/18 23:33 Nasal Screen MRSA (PCR) - Final Nasal Mrsa Not Detected Assess/Plan/Problems-Billing Assessment: Ms. Chan is an 87 yo female with PMH significant for chronic back pain, CAD with cardiac stenting, DVTs, HTN, left breast CA, CVA with residual left sided weakness, PMR, DM, and diverticulitis who presented to the emergency room with complaints of abdominal pain and was found to have evidence of diverticultitis on CTA. - Patient Problems (1) Abnormal EKG Code(s): R94.31 - ABNORMAL ELECTROCARDIOGRAM [ECG] [EKG] SNOMED Code(s): 538408899 Comment: - Diffuse ST depression and TWI - Troponin 0.02, 0.02, 0.01 - Pt has intermittently had these EKG changes in the past - Last stress test in 2016 with low risk, but showed small area of ischemia in the apex - Will order a stress test (2) Diverticulitis Comment: - Afebrile and no leukocytosis - Tolerating a clear liquid diet - Continue cipro and flagyl (3) CAD (coronary artery disease) Code(s): I25.10 - ATHSCL HEART DISEASE OF [place] CORONARY ARTERY W/O ANG PCTRS SNOMED Code(s): 38466932 Comment: - Pt with left upper ABD pain, and ischemic changes on EKG. Flat troponin - Will get a stress test - Not on a statin, unable to tolerate - Continue ASA, imdur and losartan (4) Supratherapeutic INR Code(s): R79.1 - ABNORMAL COAGULATION PROFILE SNOMED Code(s): 529050261 Comment: - Decrease warfarin today (5) CKD (chronic kidney disease), stage III Code(s): N18.3 - CHRONIC KIDNEY DISEASE, STAGE 3 (MODERATE) SNOMED Code(s): 671221428 Comment: - Secondary to DM - Creatinine at baseline (6) Chronic back pain Code(s): M54.9 - DORSALGIA, UNSPECIFIED; G89.29 - OTHER CHRONIC PAIN SNOMED Code(s): 828257562 Comment: - Chronic back and L hip pain - Continue dilaudid PRN, holding oral medications at this time (7) Diabetes Code(s): E11.9 - TYPE 2 DIABETES MELLITUS WITHOUT COMPLICATIONS SNOMED Code(s) : 50831467 Comment: - Glucose 110-120's - Diet controlled at home - Continue lispro SS (8) GERD (gastroesophageal reflux disease) Code(s): K21.9 - GASTRO-ESOPHAGEAL REFLUX DISEASE WITHOUT ESOPHAGITIS SNOMED Code(s): 122467992 Comment: - No longer on medications, will start PPI if she continues to C/O GERD symptoms (9) HX: breast cancer Code(s): Z85.3 - PERSONAL HISTORY OF MALIGNANT NEOPLASM OF BREAST SNOMED Code( s): 695545804 Comment: - Suspect that some of the patient's pain is related to her surgery (10) History of CVA (cerebrovascular accident) Code(s): Z86.73 - PRSNL HX OF TIA (TIA), AND CEREB INFRC W/O RESID DEFICITS SNOMED Code(s): 024437974 Comment: - Personal history with mild left LE weakness - Not on a statin, unable to tolerate (11) History of asthma Code(s): Z87.09 - PERSONAL HISTORY OF OTHER DISEASES OF THE RESPIRATORY SYSTEM SNOMED Code(s): 820510487 Comment: - No signs of acute exacerbation at this time - Continue albuterol PRN (12) Hx of polymyalgia rheumatica Code(s): Z87.39 - PERSONAL HISTORY OF DISEASES OF THE MS SYS AND CONN TISS SNOMED Code(s): 463909607 (13) Hyperlipemia Code(s): E78.5 - HYPERLIPIDEMIA, UNSPECIFIED SNOMED Code(s): 19197525 Comment: - Unable to tolerate statin (14) Hypertension Code(s): I10 - ESSENTIAL (PRIMARY) HYPERTENSION SNOMED Code(s): 03288838 Comment: - SBP 150-180's, improving this AM but continues to be intermittently elevated - can consider adding amlodipine if she continues to be elevated - Continue current medication regimen (15) Hypothyroidism Code(s): E03.9 - HYPOTHYROIDISM, UNSPECIFIED SNOMED Code(s): 44167075 Comment: - Continue current dose of levothyroxine (16) Psoriasis Code(s): L40.9 - PSORIASIS, UNSPECIFIED SNOMED Code(s): 3942195 Comment: - Continue home topical medications (17) DVT prophylaxis Code(s): OAH8088 - SNOMED Code(s): 925052705 Comment: - Warfarin, INR slightly supratherapeutic (18) Full code status Code(s): Z78.9 - OTHER SPECIFIED HEALTH STATUS SNOMED Code(s): 456557187 Status and Disposition: OBV to Inpatient. Discharge to home when medically stable. Attending: Alissa Carl
[2018-01-25] MEDS ORDERED: HYDROmorphone INJ1* 1 MG/ML SYRINGE IV SLOW PU PRN (13:53)
--- NOTE | 2018-01-25 14:05 | RAD ---
Edited for charges. Indication: Left-sided chest pain. Myocardial perfusion scan was performed utilizing 1. Day protocol. 10.2 mCi of technetium 99m tetrofosmin was injected for the rest portion of the study. Pharmacological stress was applied and 25.4 mCi of technetium 99 and tetrofosmin was injected for the stress portion of study. There is homogeneous distribution of the radiotracer throughout the left ventricle. There is some apical thinning noted which appears to be similar on both the stress and rest images. The ejection fraction at stress is 58%. Evaluation of wall motion demonstrates no focal wall motion abnormality. IMPRESSION: Apical thinning. No definite fixed or reversible perfusion defect identified. Normal ejection fraction. ASSESSMENT: Low risk Based on imaging criteria from ACC/AHA 2002 Guideline Update for the Management of Patients With Chronic Stable Angina Table 23. Noninvasive Risk Stratification. MTDD
[2018-01-25] MEDS ORDERED: Regadenoson* 0.4 MG/5 ML SYRINGE ONE (14:58)
--- NOTE | 2018-01-25 16:25 | RAD ---
Indication: LEFT unilateral chest/rib pain. Comparison: January 24, 2018 CT. Technique: 4 view LEFT unilateral rib series. Report: Negative for LEFT rib fracture or pneumothorax. Grossly clear visualized lungs and pleural spaces. Tortuous descending thoracic aorta as previously noted. RIGHT atrial and RIGHT ventricular level pacemaker leads. Mild cardiomegaly. Residual enteric contrast in the colon from the CT of one day prior. IMPRESSION: #. Negative LEFT unilateral rib series.
[2018-01-25] MEDS ORDERED: Warfarin TAB(*) 2 MG PO ONE (17:00)
[2018-01-25] MEDS ORDERED: Al Hydrox/Mg Hydrox/Simet LIQ* 30 ML UDC PO PRN (18:04)
--- NOTE | 2018-01-25 18:27 | RAD ---
EXAM: CT Thoracic Spine Without Intravenous Contrast CLINICAL HISTORY: 87 years old, female; Pain; Other: Lateral chest pain; Additional info: Left lateral chest pain TECHNIQUE: Axial computed tomography images of the thoracic spine without intravenous contrast. All CT scans at this facility use at least one of these dose optimization techniques: automated exposure control; mA and/or kV adjustment per patient size (includes targeted exams where dose is matched to clinical indication); or iterative reconstruction. Coronal and sagittal reformatted images were created and reviewed. COMPARISON: No relevant prior studies available. FINDINGS: Vertebrae: Chronic compression deformity of T9. Remaining thoracic vertebral bodies are intact. Multilevel facet arthropathy. Spinous processes are intact. No acute fracture. Mild levoscoliosis of the visualized lumbar spine. Discs/spinal canal/neural foramina: Multilevel degenerative changes with intervertebral disc height loss and osteophyte formation. No significant canal narrowing. Soft tissues: Unremarkable. Vasculature: Heavy calcifications of the aorta and major branches. 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 Lungs: 0.3 cm pulmonary nodule in the right upper lobe (series 305 image 58). IMPRESSION: 1. No acute fracture. 2. Multilevel spondylotic changes of the visualized spine, as above. 3. 0.3 cm pulmonary nodule in the right upper lobe. For low-risk patients, no follow-up is necessary. For high-risk patients (smoking history or other known risk factors) an optional chest CT at 12 months could be performed. 4. Other chronic findings, as above.
[2018-01-25] MEDS: Ciprofloxacin 400MG IVPREMIX(* 400 MG/200 ML BAG IVPB SCH (20:05)
[2018-01-25] MEDS: oxyCODONE TAB* 5 MG TAB PO PRN (20:05)
[2018-01-25] MEDS: Ondansetron INJ* 2 MG/ML VIAL IV PRN (20:37)
[2018-01-25] MEDS: Clobetasol 0.05% OINT* 30 GM TUBE TOPICAL SCH (20:38)
[2018-01-26] MEDS: metroNIDAZOLE IV 500 MG/100ML* 500 MG/100 ML BAG IVPB SCH ×5 (00:04→23:07)
[2018-01-26] MEDS: oxyCODONE TAB* 5 MG TAB PO PRN ×6 (00:06→21:05)
[2018-01-26] MEDS: Ondansetron INJ* 2 MG/ML VIAL IV PRN (04:38)
[2018-01-26] MEDS: Levothyroxine TAB* 125 MCG TAB PO SCH (05:34)
[2018-01-26 06:13] LABS: ABS Basophils 0 10^3/ul (0-0.2); ABS Eosinophils 0.1 10^3/ul (0-0.6); ABS Monocytes 0.6 10^3/ul (0-0.8); ABS Neutrophils 3.7 10^3/ul (1.5-7.7); ABS Nucleated RBC 0 10^3/ul; Eosinophil % 2.6 % (0-6); Hematocrit 35 % (35-47); Hemoglobin 11.7 g/dl (12.0-16.0); Lymphocyte % 18.7 % (25-47); Mean Corpuscular HGB Conc 34 g/dl (31-36); Mean Corpuscular Hemoglobin 31 pg (27-31); Mean Corpuscular Volume 92 fL (80-97); Mean Platelet Volume 8.9 um3 (7.4-10.4); Nucleated Red Blood Cells % 0; Platelet Count 171 10^3/ul (150-450); Red Blood Count 3.78 10^6/ul (4.00-5.40); Red Cell Distribution Width 14 % (10.5-15); White Blood Count 5.5 10^3/ul (3.5-10.8)
[2018-01-26 06:27] LABS: INR 4.1 (0.77-1.02)
[2018-01-26] MEDS: Aspirin EC TAB* 81 MG TAB.EC PO SCH (07:42)
[2018-01-26] MEDS: Isosorbide Mononitrate ER TAB* 60 MG PO SCH (07:42)
[2018-01-26] MEDS: Losartan TAB* 25 MG PO SCH ×2 (07:42→20:45)
[2018-01-26] MEDS: Insulin LISPRO* 1 UNITS UNIT SUBCUT SCH ×3 (08:08→16:19)
[2018-01-26] MEDS: Triamcinolone 0.5% OINT * 15 GM TUBE TOPICAL SCH (08:39)
[2018-01-26] MEDS ORDERED: Cyclobenzaprine TAB* 10 MG PO ONE (09:02)
[2018-01-26] MEDS ORDERED: Ibuprofen TAB* 600 MG PO PRN (10:08)
[2018-01-26] MEDS ORDERED: HYDROmorphone INJ1* 1 MG/ML SYRINGE IV SLOW PU STA (10:09)
[2018-01-26] MEDS: Omeprazole CAP* 20 MG PO SCH (10:42)
[2018-01-26] MEDS ORDERED: Acetaminophen TAB* 325 MG PO SCH (11:00)
[2018-01-26] MEDS: predniSONE TAB* 20 MG PO SCH (11:58)
[2018-01-26] MEDS: Cyclobenzaprine TAB* 10 MG PO SCH ×2 (13:52→20:44)
--- NOTE | 2018-01-26 15:44 | PN ---
Subjective Date of Service: 01/26/18 Interval History: Pt seen and examined. Meds and labs reviewed. CC: 02/16 reproducible left-sided CP ROS: Denied LAZARO/dizziness, F/C, N/V, SOB, increased cough, sputum production, abd pain, diarrhea, constipation, dysuria, myalgias, arthralgias, throat pain, and new skin lesions. The rest of the 14 point ROS are unremarkable. PHYSICAL EXAM: GEN APPEARANCE: Awake, not in acute distress HEENT: NC/AT, PERRLA, moist oral mucosa, (-) throat erythema NECK: Soft, supple, (-) cervical LAD, (-)JVD HEART: S1S2 WNL, RRR, No MRG CHEST: CTA, BL, GAE, No W/R/R, tender left lateral chest wall ABD: Soft, ND/NT, NABS 4x Q EXT: No C/C/E SKIN: Warm to touch PSYCH: No active psychosis, hallucinations, depression, SI/HI Family History: Unchanged from Admission Social History: Unchanged from Admission Past Medical History: Unchanged from Admission Objective Active Medications: Al Hydrox/Mg Hydrox/Simethicone (Maalox Plus*) 30 ml PO Q6H PRN PRN Reason: INDIGESTION Last Admin: 01/25/18 18:51 Dose: 30 ml Albuterol (Ventolin Hfa Inhaler*) 2 puff INH Q6H PRN PRN Reason: SOB/WHEEZING Aspirin (Aspirin Ec Tab*) 81 mg PO DAILY [facility] Last Admin: 01/26/18 07:42 Dose: 81 mg Clobetasol Propionate (Clobetasol 0.05% Oint*) 1 applic TOPICAL BEDTIME [facility] Last Admin: 01/25/18 20:38 Dose: 1 applic Cyclobenzaprine HCl (Flexeril Tab*) 10 mg PO TID [facility] Last Admin: 01/26/18 13:52 Dose: 10 mg Dextrose (D50w Syringe 50 Ml*) 12.5 gm IV PUSH .FOR FS < 60 - SS PRN PRN Reason: FS < 60 Hydrocortisone (Anusol Hc Supp*) 25 mg NH Q12HR PRN PRN Reason: PAIN Metronidazole/Sodium Chloride (Flagyl 500 Mg Ivpb*) 500 mg in 100 mls @ 100 mls /hr IVPB Q6H [facility] Last Admin: 01/26/18 11:58 Dose: 100 mls/hr Ciprofloxacin/Dextrose (Cipro 400 Mg Ivpremix(*)) 400 mg in 200 mls @ 200 mls/ hr IVPB Q24H [facility] Last Admin: 01/25/18 20:05 Dose: 200 mls/hr Ibuprofen (Motrin Tab*) 600 mg PO Q8H PRN PRN Reason: PAIN Insulin Human Lispro (Humalog*) 0 - 5 units SUBCUT AC [facility]; Protocol Last Admin: 01/26/18 11:59 Dose: Not Given Isosorbide Mononitrate (Imdur Er Tab*) 60 mg PO DAILY [facility] Last Admin: 01/26/18 07:42 Dose: 60 mg Levothyroxine Sodium (Synthroid Tab*) 125 mcg PO 0600 [facility] Last Admin: 01/26/18 05:34 Dose: 125 mcg Losartan Potassium (Cozaar Tab*) 50 mg PO BID [facility] Last Admin: 01/26/18 07:42 Dose: 50 mg Omeprazole (Prilosec Cap*) 20 mg PO DAILY@0730 [facility] Last Admin: 01/26/18 10:42 Dose: 20 mg Ondansetron HCl (Zofran Inj*) 4 mg IV Q6H PRN PRN Reason: NAUSEA Last Admin: 01/26/18 04:38 Dose: 4 mg Oxycodone HCl (Roxycodone Tab*) 10 mg PO Q4H PRN PRN Reason: PAIN Last Admin: 01/26/18 12:42 Dose: 10 mg Pharmacy Profile Note (Coumadin Per Pharmacy*) 1 note FOLLOW UP .PER PHARMACY PROTOC [facility]; Protocol Prednisone (Deltasone Tab*) 40 mg PO DAILY [facility] Last Admin: 01/26/18 11:58 Dose: 40 mg Triamcinolone Acetonide (Triamcinolone 0.5% Oint *) 1 applic TOPICAL DAILY [facility] Last Admin: 01/26/18 08:39 Dose: 1 applic Vital Signs - 8 hr 01/26/18 01/26/18 01/26/18 07:40 08:38 09:36 Temperature Pulse Rate Respiratory 22 22 22 Rate Blood Pressure (mmHg) O2 Sat by Pulse Oximetry 01/26/18 01/26/18 01/26/18 10:42 11:54 12:42 Temperature 98.3 F Pulse Rate 60 Respiratory 22 16 20 Rate Blood Pressure 126/62 (mmHg) O2 Sat by Pulse 97 Oximetry 01/26/18 01/26/18 01/26/18 13:52 15:29 15:38 Temperature 98.0 F Pulse Rate 61 Respiratory 22 18 16 Rate Blood Pressure 127/66 (mmHg) O2 Sat by Pulse 96 Oximetry Oxygen Devices in Use Now: None Result Diagrams: 01/26/18 05:47 01/25/18 06:33 Microbiology and Other Data: Microbiology 01/24/18 23:33 Nasal Screen MRSA (PCR) - Final Nasal Mrsa Not Detected Assess/Plan/Problems-Billing Assessment: Ms. Chan is an 87 yo female with PMH significant for chronic back pain, CAD with cardiac stenting, DVTs, HTN, left breast CA, CVA with residual left sided weakness, PMR, DM, and diverticulitis who presented to the emergency room with complaints of abdominal pain and was found to have evidence of diverticultitis on CTA. - Patient Problems (1) Chest pain Current Visit: No Status: Acute Priority: High Onset Date: 06/25/14 Code (s): R07.9 - CHEST PAIN, UNSPECIFIED SNOMED Code(s): 22001073 Comment: -Likely musculoskeletal given tender to touch and reproducible with recent stress test being found to be low probability -Troponins (-) x 3 - No change from previous EKG - Will dose with Flexeril, PRN Dilaudid, Ibuprofen, and Prednisone to quiet acute significant CP (2) Diverticulitis Current Visit: Yes Status: Acute Priority: High Onset Date: 01/06/15 Comment: - Afebrile and no leukocytosis - Tolerating a clear liquid diet -Will advance diet to low residue - Continue cipro and flagyl (3) CAD (coronary artery disease) Current Visit: No Status: Chronic Code(s): I25.10 - ATHSCL HEART DISEASE OF [place] CORONARY ARTERY W/O ANG PCTRS SNOMED Code(s): 69982005 Comment: - Pt with left upper ABD pain, and ischemic changes on EKG. Flat troponin - Not on a statin, unable to tolerate - Continue ASA, imdur and losartan (4) Supratherapeutic INR Current Visit: No Status: Acute Code(s): R79.1 - ABNORMAL COAGULATION PROFILE SNOMED Code(s): 441198098 Comment: -Continue pharmacy surveillance protocol (5) CKD (chronic kidney disease), stage III Current Visit: Yes Status: Chronic Code(s): N18.3 - CHRONIC KIDNEY DISEASE, STAGE 3 (MODERATE) SNOMED Code(s): 999839946 Comment: - Secondary to DM - Creatinine at baseline (6) Chronic back pain Current Visit: No Status: Chronic Code(s): M54.9 - DORSALGIA, UNSPECIFIED; G89.29 - OTHER CHRONIC PAIN SNOMED Code(s): 754680889 Comment: - Chronic back and L hip pain - Continue dilaudid PRN, holding oral medications at this time (7) Diabetes Current Visit: Yes Status: Chronic Onset Date: 01/06/15 Code(s): E11.9 - TYPE 2 DIABETES MELLITUS WITHOUT COMPLICATIONS SNOMED Code(s): 41052858 Comment: - Glucose 110-120's - Diet controlled at home - Continue lispro SS (8) GERD (gastroesophageal reflux disease) Current Visit: No Status: Chronic Code(s): K21.9 - GASTRO-ESOPHAGEAL REFLUX DISEASE WITHOUT ESOPHAGITIS SNOMED Code(s): 411054359 Comment: - No longer on medications, will start PPI if she continues to C/O GERD symptoms (9) Hyperlipemia Current Visit: No Status: Chronic Priority: High Onset Date: 01/06/15 Code(s): E78.5 - HYPERLIPIDEMIA, UNSPECIFIED SNOMED Code(s): 41544610 Comment: - Unable to tolerate statin (10) Hypertension Current Visit: No Status: Chronic Onset Date: 01/06/15 Code(s): I10 - ESSENTIAL (PRIMARY) HYPERTENSION SNOMED Code(s): 98731910 Comment: - Improved -Well-controlled (11) Hypothyroidism Current Visit: No Status: Chronic Code(s): E03.9 - HYPOTHYROIDISM, UNSPECIFIED SNOMED Code(s): 22952336 Comment: - Continue current dose of levothyroxine (12) Psoriasis Current Visit: No Status: Chronic Priority: High Onset Date: 01/06/15 Code(s): L40.9 - PSORIASIS, UNSPECIFIED SNOMED Code(s): 5402384 Comment: - Continue home topical medications (13) DVT prophylaxis Current Visit: Yes Status: Acute Code(s): WJO4279 - SNOMED Code(s): 708526670 Comment: - Warfarin, INR slightly supratherapeutic Status and Disposition: OBV to Inpatient. Discharge to home when medically stable.
[2018-01-26] MEDS: Ciprofloxacin 400MG IVPREMIX(* 400 MG/200 ML BAG IVPB SCH (20:44)
[2018-01-26] MEDS: Clobetasol 0.05% OINT* 30 GM TUBE TOPICAL SCH (20:44)
[2018-01-27] MEDS: oxyCODONE TAB* 5 MG TAB PO PRN ×3 (02:40→22:18)
[2018-01-27] MEDS: Levothyroxine TAB* 125 MCG TAB PO SCH (05:36)
[2018-01-27] MEDS: metroNIDAZOLE IV 500 MG/100ML* 500 MG/100 ML BAG IVPB SCH ×4 (05:36→23:02)
[2018-01-27 06:44] LABS: Hematocrit 37 % (35-47); Hemoglobin 12.5 g/dl (12.0-16.0); Mean Corpuscular HGB Conc 34 g/dl (31-36); Mean Corpuscular Hemoglobin 31 pg (27-31); Mean Corpuscular Volume 92 fL (80-97); Red Blood Count 4.04 10^6/ul (4.00-5.40); Red Cell Distribution Width 14 % (10.5-15); White Blood Count 7.3 10^3/ul (3.5-10.8)
[2018-01-27 06:58] LABS: EGFR Non-African American 40.1 (>60)
[2018-01-27 07:04] LABS: INR 3.65 (0.77-1.02)
[2018-01-27 07:05] LABS: ABS Basophils 0 10^3/ul (0-0.2); ABS Eosinophils 0 10^3/ul (0-0.6); ABS Lymphocytes 1.2 10^3/ul (1.0-4.8); ABS Monocytes 0.7 10^3/ul (0-0.8); ABS Neutrophils 5.3 10^3/ul (1.5-7.7); ABS Nucleated RBC 0 10^3/ul; Eosinophil % 0.6 % (0-6); Lymphocyte % 16.3 % (25-47); Mean Platelet Volume 9.6 um3 (7.4-10.4); Nucleated Red Blood Cells % 0.1; Platelet Count 149 10^3/ul (150-450)
[2018-01-27] MEDS ORDERED: HYDROmorphone INJ* 1 MG/ML CARPUJECT SYRINGE IV SLOW PU STA (07:58)
[2018-01-27] MEDS ORDERED: HYDROmorphone INJ1* 1 MG/ML SYRINGE IV SLOW PU STA (08:04)
[2018-01-27] MEDS: Insulin LISPRO* 1 UNITS UNIT SUBCUT SCH ×3 (08:18→18:30)
[2018-01-27] MEDS: Losartan TAB* 25 MG PO SCH ×2 (08:33→19:55)
[2018-01-27] MEDS: Omeprazole CAP* 20 MG PO SCH (08:33)
[2018-01-27] MEDS: Cyclobenzaprine TAB* 10 MG PO SCH ×3 (08:33→19:53)
[2018-01-27] MEDS: predniSONE TAB* 20 MG PO SCH (08:34)
[2018-01-27] MEDS: Aspirin EC TAB* 81 MG TAB.EC PO SCH (08:34)
[2018-01-27] MEDS: Isosorbide Mononitrate ER TAB* 60 MG PO SCH (08:34)
[2018-01-27] MEDS: Triamcinolone 0.5% OINT * 15 GM TUBE TOPICAL SCH (08:36)
[2018-01-27] MEDS ORDERED: HYDROmorphone INJ1* 1 MG/ML SYRINGE ONE (09:38)
[2018-01-27] MEDS: Lidocaine PATCH 5%* 1 PATCH TRANSDERM SCH (18:31)
[2018-01-27] MEDS: Clobetasol 0.05% OINT* 30 GM TUBE TOPICAL SCH (19:53)
[2018-01-27] MEDS: Ciprofloxacin 400MG IVPREMIX(* 400 MG/200 ML BAG IVPB SCH (19:55)
[2018-01-27] MEDS ORDERED: Lidocaine Patch REMOVE* 1 NOTE MISC SCH (21:00)
[2018-01-28 03:59] VITALS: BP 168/69
[2018-01-28] MEDS: metroNIDAZOLE IV 500 MG/100ML* 500 MG/100 ML BAG IVPB SCH (05:19)
[2018-01-28] MEDS: Levothyroxine TAB* 125 MCG TAB PO SCH (05:19)
[2018-01-28] MEDS: oxyCODONE TAB* 5 MG TAB PO PRN ×2 (05:55→08:18)
[2018-01-28] MEDS: Lidocaine PATCH 5%* 1 PATCH TRANSDERM SCH (08:16)
[2018-01-28] MEDS: Aspirin EC TAB* 81 MG TAB.EC PO SCH (08:17)
[2018-01-28] MEDS: Losartan TAB* 25 MG PO SCH (08:17)
[2018-01-28] MEDS: Isosorbide Mononitrate ER TAB* 60 MG PO SCH (08:18)
[2018-01-28] MEDS: Cyclobenzaprine TAB* 10 MG PO SCH (08:18)
[2018-01-28] MEDS: predniSONE TAB* 20 MG PO SCH (08:18)
[2018-01-28] MEDS: Omeprazole CAP* 20 MG PO SCH (08:18)
[2018-01-28] MEDS: Insulin LISPRO* 1 UNITS UNIT SUBCUT SCH (08:19)
[2018-01-28] MEDS: Triamcinolone 0.5% OINT * 15 GM TUBE TOPICAL SCH (08:36)
--- NOTE | 2018-01-28 18:04 | DS ---
DISCHARGE SUMMARY: DATE OF ADMISSION: DATE OF DISCHARGE: 01/27/18 DISCHARGE DIAGNOSES: 1. Noncardiac chest pain. 2. Diverticulitis. 3. History of coronary artery disease. 4. Supratherapeutic INR. 5. History of chronic kidney disease, stage 3. 6. History of diabetes. HISTORY OF PRESENT ILLNESS/HOSPITAL COURSE: The patient is an 87-year-old lady with history of chronic back pain secondary to osteoarthritis; CAD, status post 4 cardiac stents; recurrent DVTs; as well as hypertension, who was admitted with a chief complaint of abdominal pain and urinary incontinence where an abdominal and pelvic CTA reveals that she has diverticulitis and she was placed on metronidazole and ciprofloxacin. She also complained of some left -sided left lateral wall chest pain which is reproducible and she has been ruled out for an ACS with troponins being negative x3. She has also been ruled out for a PE with CT angio of her chest and she also has been ruled out for a cardiac cause of chest pain given her stress test, was found to be low probability. She had been placed on slow prednisone taper to control her inflammation and unfortunately given her supratherapeutic INR, we held off on high doses of NSAIDs for antiinflammatory, especially given her significant CAD. She has been given muscle relaxants to control her left lateral wall chest pain that is reproducible as well as some lidocaine patch. She had been advised to follow up and recall her PCP within 3 days post discharge to hold her Coumadin and repeat her INR tomorrow and touch base with her PCP as to when the best time to recheck it and to see whether her Coumadin regimen will need to be adjusted. She was advised that if her symptoms resume or develop new ones or feel unwell for any reasons to call her PCP and if her PCP cannot entertain her due to scheduling issues alone, to call [facility] if her issue is not emergent. She was advised to call my office regarding any questions, concerns, or further clarifications regarding her discharge plans and her prescriptions and to take her medications as prescribed. DISCHARGE MEDICATIONS: 1. Aspirin 81 mg p.o. daily. 2. Clobetasol 1 application topically q.h.s. 3. Cyclobenzaprine 10 mg p.o. t.i.d. 4. Dexamethasone topically 0.05% daily. 5. Hydrocortisone 25 mg p.r. q.12. 6. Isosorbide mononitrate 60 mg p.o. daily. 7. Levothyroxine mcg p.o. q.a.m. 8. Lidocaine patch/Lidoderm patch 5% patch daily for 10 days. 9. Losartan 50 mg p.o. b.i.d. 10. Oxycodone 10 mg p.o. q.4 p.r.n. 11. Prednisone 40 mg p.o. daily. 12. Albuterol 2 puffs inhalation q.4. 13. Benzonatate 100 mg p.o. t.i.d. 14. Betamethasone dipropionate 0.05% topically b.i.d. 15. Cholecalciferol 2000 units p.o. daily. 16. Ciprofloxacin 500 mg p.o. b.i.d. 17. Cyanocobalamin 1000 mcg IM monthly. 18. Diclofenac 1% gel 1 application topically four times a day. 19. Probiotic 1 capsule p.o. daily. 20. Loperamide 2 mg p.o. b.i.d. 21. Multivitamins p.o. daily. 22. Nitroglycerin 0.4 mg sublingual q.5 minutes p.r.n. 23. Polyethylene glycol 17 g p.o. daily. 24. Prednisone rapid taper. [id number]/[facility] #: [id number] CHANEL
== END 2018-01-28 10:05 | disposition home health service (06) | DRG 392 ==
LOC: ED 11:06 → MEDTELE 17:24 → OBSVTOIN 01-25 10:16
PROVIDERS: ADMIT Internal Medicine; ATTEND Student in an Organized Health Care Education/Training Program
DX: K57.32 Diverticulitis of large intestine without perforation or abscess without bleeding (principal); I69.354 Hemiplegia and hemiparesis following cerebral infarction affecting left non-dominant side; I44.2 Atrioventricular block, complete; R07.89 Other chest pain; I25.10 Atherosclerotic heart disease of native coronary artery without angina pectoris; I13.10 Hypertensive heart and chronic kidney disease without heart failure, with stage 1 through stage 4 chronic kidney disease, or unspecified chronic kidney disease; N18.3 Chronic kidney disease, stage 3 (moderate); Z95.5 Presence of coronary angioplasty implant and graft; E11.22 Type 2 diabetes mellitus with diabetic chronic kidney disease; E03.9 Hypothyroidism, unspecified; L40.9 Psoriasis, unspecified; R79.1 Abnormal coagulation profile; M47.9 Spondylosis, unspecified; M35.3 Polymyalgia rheumatica; K21.9 Gastro-esophageal reflux disease without esophagitis; K42.9 Umbilical hernia without obstruction or gangrene; E78.5 Hyperlipidemia, unspecified; M54.9 Dorsalgia, unspecified; Z95.0 Presence of cardiac pacemaker; Z79.82 Long term (current) use of aspirin; Z86.718 Personal history of other venous thrombosis and embolism; Z85.3 Personal history of malignant neoplasm of breast; Z79.891 Long term (current) use of opiate analgesic; Z79.899 Other long term (current) drug therapy; Z79.01 Long term (current) use of anticoagulants; Z88.5 Allergy status to narcotic agent; Z88.0 Allergy status to penicillin; Z88.8 Allergy status to other drugs, medicaments and biological substances; Z80.3 Family history of malignant neoplasm of breast; Z80.0 Family history of malignant neoplasm of digestive organs; Z80.42 Family history of malignant neoplasm of prostate; Z82.49 Family history of ischemic heart disease and other diseases of the circulatory system; Z83.3 Family history of diabetes mellitus
CPT/HCPCS: 36415; 71046; 71275; 72128; 74174; 78452; 80048; 80053; 81003; 82150; 82270; 82550; 82553; 83605; 83690; 83735; 84100; 84484; 85025; 85379; 85610; 85652; 86038; 86140; 86200; 86431; 87641; 93005; 93017; 99284; A9270-GY; A9502; G0378; J0744; J1170; J2270; J2405; J2785; J3490; J7512; Q9967